=== PATIENT | male | born 1930 | race Caucasian/White ===

== ENCOUNTER → 2016-11-18 | Day surgery (SDC) | payer MEDICARE, OTHER ==
[~2016-11-18] VITALS: Ht 177.8 cm; Wt 77.1 kg
[~2016-11-18] MED LIST: /TAMS4CA OR; AMIL5TA PO; AMLO10TA OR; AMLO10TA2 PO; ASPI81TA85 PO; ATEN50TA2 OR; BABY81CH OR; CIPR500T3 PO; CONRAY-60 60% 50ML VIAL (Q9961) As Ordered ONE; CONRAY-60 60% 50ML VIAL (Q9961) XX ONE; CORT10TA OR; CORT5TAB2 OR; COZA50TA18 OR; FERR325T3 PO; HYDR-3291 PO; HYDR-4266 PO; HYDR5TAB59 PO; IRON325T PO; LABE10TAB PO; LASI80TA PO; LEVO25TA2 OR; LEVO88TA3 PO; LIDOCAINE 2% INJ 100 MG/5 ML SDV (FOR ANES.) As Ordered ONE; LR 1,000 ML IV SCH; MIDAZOLAM INJ 2 MG/2 ML VIAL (J2250) As Ordered ONE; ONDANSETRON 4MG/2ML VIAL (J2405) As Ordered ONE; PHOS667C PO; PROC1INJ5 SC; PROPOFOL 200 MG/20 ML VIAL As Ordered ONE; ROCA0.25 PO; SODI325T9 PO; TRAN100T OR; TYLE650T35 PO; VITA100037 PO; VITMTA PO; ceFAZolin 1GM INJ (J0690) As Ordered ONE; ceFAZolin SOD 1 GM in D5W MINI-BAG PLUS 50 ML IV ONE; ePHEDrine SULFATE 25 MG/5 ML(5MG/ML) SYRINGE As Ordered ONE; fentaNYL 100 MCG/2 ML INJECTION (J3010) As Ordered ONE
--- NOTE | 2016-11-18 10:57 | REP ---
RETROGRADE PYELOGRAM: Four views. HISTORY: Left ureteral stone. 0.13 minutes of fluoroscopy time is reported. FINDINGS: A sequence of four fluoroscopically obtained intraprocedural spot radiographs document cystoscopy, left ureteral cannulation and double pigtail stent placement. No laterality markers are seen. Signed by Arley Elam MD 11/18/2016 08:09 P
[2016-11-18 12:55] VITALS: BP 161/73
--- NOTE | 2016-11-19 09:37 | RO ---
DATE OF PROCEDURE: 11/18/2016 PREOPERATIVE DIAGNOSIS: Left hydronephrosis. POSTOPERATIVE DIAGNOSIS: Left hydronephrosis and papillary tumor of the bladder. SURGERY PERFORMED: Cystoscopy, plus left double J stent exchange, #6-Kosovan Boaz Cook, plus transurethral resection of bladder tumors. SURGEON: Frankie Hilario MD GREEN COFFEE BLENDER: None. ANESTHESIA: General. COMPLICATIONS: None. ESTIMATED BLOOD LOSS: N/A. HISTORY OF PRESENT ILLNESS: This is an 86-year-old male patient with a history of left hydronephrosis due to a left ureteral stricture mid ureter. The patient is here for cystoscopy, plus left double J stent exchange, #6-Kosovan Boaz Cook. PROCEDURE DESCRIPTION: In a patient under general anesthesia in supine modified low lithotomy position after prepping and draping the area of concern, which included the entire genitalia and abdomen, we started by introducing a #21-Kosovan cystoscope with a 30-degree lens, under videoendoscopic camera. The fossa navicularis, penile urethra, bulbar urethra, membranous urethra, and prostatic urethra were totally normal. The bladder had some papillary tumor in the left trigone, in the right trigone and periurethral orifice, as well as in the posterior bladder wall. The left double J stenting with position, with the endoscopic forceps, we grabbed the left double J stent and pulled it out of the body of the patient. We then proceeded to pass a guidewire up to the kidney and then loaded a new double J stent and put it into position. Once it was in good position, we removed the guidewire and you could see the curl in the kidney and the curl in the bladder. We then proceeded to actively grab a resectoscope. After dilating the urethra [place] sounds up to 30 , we passed the resectoscope and resected the papillary tumor in the left trigone, in the periurethral orifice on the left side and also in the posterior bladder wall. We sent these specimens for permanent pathology analysis. We then fulgurated the bleeding vessels and took out the cystoscope, the resectoscope and placed a #24-Kosovan Pollack catheter 3-way, the balloon to 20 mL and placed it to gravity. The third way was blocked with a plug. Plan: The patient will go home with antibiotic and Tylenol for pain. He will followup in 4 days at [facility] for a voiding trial. There were no complications during surgery.
== END | disposition home or self-care (01) ==
LOC: M SDC 08:00
PROVIDERS: ATTEND Urology
DX: N13.1 Hydronephrosis with ureteral stricture, not elsewhere classified (principal); C67.0 Malignant neoplasm of trigone of bladder; N13.8 Other obstructive and reflux uropathy; I10 Essential (primary) hypertension; E27.2 Addisonian crisis; E03.9 Hypothyroidism, unspecified; Z91.040 Latex allergy status; Z79.899 Other long term (current) drug therapy; Z79.82 Long term (current) use of aspirin; Z87.891 Personal history of nicotine dependence
CPT/HCPCS: 52234; 52332; 74420; 88305; C2617; J0690; J2250; J2405; J3010; Q9961

== ENCOUNTER → 2016-11-27 | Outpatient (CLI) | payer MEDICARE, OTHER ==
[~2016-11-27] MED LIST changes: -CONRAY-60 60% 50ML VIAL (Q9961) As Ordered ONE; -CONRAY-60 60% 50ML VIAL (Q9961) XX ONE; +FUROSEMIDE 20 MG/2 ML VIAL (J1940) As Ordered ONE; -LIDOCAINE 2% INJ 100 MG/5 ML SDV (FOR ANES.) As Ordered ONE; -LR 1,000 ML IV SCH; -MIDAZOLAM INJ 2 MG/2 ML VIAL (J2250) As Ordered ONE; -ONDANSETRON 4MG/2ML VIAL (J2405) As Ordered ONE; -PROPOFOL 200 MG/20 ML VIAL As Ordered ONE; -ceFAZolin 1GM INJ (J0690) As Ordered ONE; -ceFAZolin SOD 1 GM in D5W MINI-BAG PLUS 50 ML IV ONE; -ePHEDrine SULFATE 25 MG/5 ML(5MG/ML) SYRINGE As Ordered ONE; -fentaNYL 100 MCG/2 ML INJECTION (J3010) As Ordered ONE
--- NOTE | 2016-11-27 16:43 | REP ---
Nuclear renal scintigraphy with differential flow and function analysis and Lasix induced washout venography: History: Obstructive and reflux uropathy. Hydronephrosis. Bladder carcinoma. Comparison nuclear renal scan is from 08/17/2012. The prior study showed very poor function and flow to the left kidney. Technique: 8.8 mCi technetium 99m MAG3 is injected and a posterior flow and excretory phase images are acquired. Renal cortical regions of interest are drawn and time activity curves are plotted for renal function analysis. 20 mg of intravenous Lasix is administered and post Lasix venography was performed. Scintigraphic findings: Posterior flow study shows essentially absent early uptake in the left kidney. Excretory phase images show markedly delayed appearance of the left renal and left collecting system uptake. There is no evidence of intrarenal mass on the right. Renal collecting systems labeled on the right at the 3-minute ree. There is no evidence of obstructive uropathy on the right. Differential renal function analysis is asymmetric with 20% of renal cortical counts tabulated from the left kidney and 80% from the right. Time to max activity is delayed somewhat on the right to 5.0 minutes of the could not be calculated on the left. Time to half max activity is greater than 30 minutes bilaterally. There is a decrement in renal function affecting the right kidney when compared with the prior study. Post-Lasix venography shows some clearance of collecting system activity from the right kidney however there is no significant hydronephrosis to begin with. The post-Lasix venography for the left kidney shows a rising time activity curve consistent with obstructive uropathy. Impression: Markedly decreased, nearly absent, function left kidney with rising post-Lasix time activity curve consistent with obstructive uropathy. Diminish function right kidney also seen, more so than on the prior study. Signed by Arley Elam MD 11/27/2016 04:59 P
== END ==
LOC: M RAD 09:25
PROVIDERS: ATTEND Nurse Practitioner Women's Health
DX: C67.9 Malignant neoplasm of bladder, unspecified (principal); N13.8 Other obstructive and reflux uropathy; N13.1 Hydronephrosis with ureteral stricture, not elsewhere classified
CPT/HCPCS: 78708; A9562; J1940

== ENCOUNTER → 2016-12-10 | Outpatient (REF) | payer MEDICARE, OTHER ==
[~2016-12-10] MED LIST changes: -FUROSEMIDE 20 MG/2 ML VIAL (J1940) As Ordered ONE
[2016-12-10 19:10] LABS: PERCENT SATURATION 25.4 % (19.7-37.4)
== END | disposition home or self-care (01) ==
LOC: M LAB REF 17:04
PROVIDERS: ATTEND Internal Medicine Nephrology
DX: D50.9 Iron deficiency anemia, unspecified (principal)

== ENCOUNTER → 2017-01-05 | Outpatient (CLI) | payer MEDICARE, OTHER ==
[~2017-01-05] MED LIST changes: +ASPI1TAB PO; +CEPH250T PO; +KEFL250C6 PO; +LASI40TA PO; +LEVO100T54 PO; +MINO10TAB PO; +MINO25TA PO; +PERCOCET PO
[2017-01-05 14:36] LABS: TOTAL PROTEIN, BODY FLUID 1.7 G/DL (NOT ESTABLISHED)
--- NOTE | 2017-01-05 14:58 | REP ---
CHEST X-RAY: THREE VIEWS PRESENTED. HISTORY: Post thoracentesis. Question pneumothorax. Comparison study, November 03, 2016. Comparison CT study December 31, 2016. FINDINGS: Upright AP and lateral views of the chest show no evidence of pneumothorax. There is slight residual blunting of the right lateral pleural angle. The lungs are quite hyperinflated with increase in the AP diameter of the chest and some flattening of the hemidiaphragms. The thoracic aorta is calcific and tortuous. Thoracic kyphosis is exaggerated, and there are three adjacent osteoporotic wedge-shaped compression deformities in the thoracic spine. These are unchanged from the November 03, 2016 prior chest x-ray. IMPRESSION: No evidence of pneumothorax. Patient status post right thoracentesis. Linear fibrosis left perihilar region and cardiomegaly again noted. Stable wedge compression deformities in the thoracic spine. Signed by Arley Elam MD 01/05/2017 03:22 P
--- NOTE | 2017-01-05 17:12 | REP ---
ULTRASOUND GUIDED RIGHT THORACENTESIS: The procedure was performed under the direct supervision of Dr. Alcocer. The risks and benefits of the procedure were explained to the patient and informed consent was obtained. The right pleural effusion was localized using ultrasound guidance. The skin was prepped and draped in a sterile fashion. 1% Lidocaine was used as a local anesthetic. Using ultrasound guidance an 8-Eritrean [id number] catheter was inserted using trocar technique. 500 mL of clear yellow fluid was withdrawn and sent to the lab for analysis. The patient tolerated the procedure well and there were no immediate complications. After the appropriate amount of monitored convalesce the patient was discharged from the department. Reviewed by STEPHENIE Zelaya 01/06/2017 08:22 AEdited and Signed by Ryan Alcocer MD 01/06/2017 10:12 A
== END ==
LOC: M RADPRO 12:03
PROVIDERS: ATTEND Internal Medicine Nephrology
DX: J84.112 Idiopathic pulmonary fibrosis (principal); I51.7 Cardiomegaly; N18.4 Chronic kidney disease, stage 4 (severe); J90 Pleural effusion, not elsewhere classified; R06.00 Dyspnea, unspecified; Z91.040 Latex allergy status; Z91.048 Other nonmedicinal substance allergy status; Z79.82 Long term (current) use of aspirin; Z79.899 Other long term (current) drug therapy

== ENCOUNTER 2017-01-06 08:19 | Day surgery (SDC) | payer MEDICARE, OTHER ==
[~2017-01-06] VITALS: Ht 177.8 cm; Wt 78.5 kg
[~2017-01-06 08:19] MED LIST changes: -ASPI1TAB PO; -CEPH250T PO; -KEFL250C6 PO; -LASI40TA PO; -LEVO100T54 PO; +LIDOCAINE 2% INJ 100 MG/5 ML SDV (FOR ANES.) As Ordered ONE; +MIDAZOLAM INJ 2 MG/2 ML VIAL (J2250) As Ordered ONE; -MINO10TAB PO; -MINO25TA PO; -PERCOCET PO; +PROPOFOL 200 MG/20 ML VIAL As Ordered ONE; +fentaNYL 100 MCG/2 ML INJECTION (J3010) As Ordered ONE
[2017-01-06] MEDS ORDERED: LR 1,000 ML IV SCH ×2 (09:00→12:15)
[2017-01-06 09:04] LABS: INR 1.07
[2017-01-06] MEDS ORDERED: MINO25TA PO (09:25)
[2017-01-06] MEDS ORDERED: ceFAZolin 2 GM/D5W 50 ML IV BAG (J0690) As Ordered ONE ×2 (09:31→09:37)
[2017-01-06] MEDS ORDERED: ROCURONIUM BROMIDE 50 MG/5 ML VIAL As Ordered ONE (09:35)
[2017-01-06] MEDS ORDERED: LASI40TA PO (09:37)
[2017-01-06] MEDS ORDERED: HYDROCORTISONE 100 MG/2 ML VIAL (J1720) As Ordered ONE (10:00)
[2017-01-06] MEDS ORDERED: CONRAY-60 60% 50ML VIAL (Q9961) As Ordered ONE (10:10)
[2017-01-06] MEDS ORDERED: ONDANSETRON 4MG/2ML VIAL (J2405) As Ordered ONE (10:19)
[2017-01-06] MEDS ORDERED: NEOSTIGMINE 1MG/ML 5 ML SYRINGE (J2710) As Ordered ONE (10:19)
[2017-01-06] MEDS ORDERED: GLYCOPYRROLATE INJ 0.2 MG/ML 2 ML VIAL As Ordered ONE (10:20)
[2017-01-06] MEDS ORDERED: ePHEDrine SULFATE 25 MG/5 ML(5MG/ML) SYRINGE As Ordered ONE (10:29)
[2017-01-06] MEDS ORDERED: KEFL250C6 PO (11:50)
[2017-01-06] MEDS ORDERED: PERCOCET PO (11:50)
[2017-01-06] MEDS ORDERED: FUROSEMIDE 20 MG/2 ML VIAL (J1940) As Ordered ONE (12:02)
--- NOTE | 2017-01-06 12:13 | REP ---
C-ARM VIEWS DURING LEFT RETROGRADE PYELOGRAM: Multiple C-arm views are obtained. Contrast is injected into the left ureter and pelvicaliceal system, with moderate dilatation of the collecting system. A balloon is inflated in the proximal left ureter. Left ureteral stent is place with the proximal end coiled in the left renal pelvis and the distal end coiled in the urinary bladder. 8 minutes 18 seconds of fluoroscopy time utilized. Signed by Ryan Alcocer MD 01/07/2017 04:36 P
[2017-01-06] MEDS ORDERED: fentaNYL 100 MCG/2 ML INJECTION (J3010) IV PRN (12:15)
[2017-01-06] MEDS ORDERED: FUROSEMIDE 20 MG/2 ML VIAL (J1940) IV ONE (12:15)
[2017-01-06] MEDS ORDERED: ONDANSETRON 4MG/2ML VIAL (J2405) IV PRN ×2 (12:15→16:30)
[2017-01-06] MEDS ORDERED: PERCOCET 5MG/325MG TAB PO PRN ×2 (12:15)
[2017-01-06 13:50] VITALS: BP 138/58
[2017-01-06 14:30] VITALS: BP 120/62
[2017-01-06 15:00] VITALS: BP 153/69
[2017-01-06 16:00] VITALS: BP 147/65
[2017-01-06 16:43] LABS: MEAN CORPUSCULAR VOLUME 99.9 fl (80.0-96.0); RED CELL DISTRIBUTION WIDTH 16.3 % (11.5-14.5); WHITE BLOOD COUNT 5.4 K/mm3 (4.0-10.0)
[2017-01-06 17:00] VITALS: BP 144/67
[2017-01-06] MEDS: ACETAMINOPHEN 650MG ER TAB (TYLENOL ARTHRITIS) PO SCH ×2 (17:44→21:13)
[2017-01-06 18:00] VITALS: BP 138/65
[2017-01-06] MEDS ORDERED: CEPHALEXIN 250 MG CAP PO ONE (18:00)
[2017-01-06 18:03] LABS: CALCIUM LEVEL 7.7 MG/DL (8.8-10.2); CREATININE FOR GFR 4.44 MG/DL (0.70-1.30); GLOMERULAR FILTRATION RATE 13.6 (>35)
[2017-01-06 18:05] LABS: POTASSIUM SERUM 5.7 MEQ/L (3.5-5.1)
[2017-01-06] MEDS: LABETALOL 100 MG TAB PO SCH (20:20)
[2017-01-06] MEDS: aMILoride 5 MG TAB PO SCH (20:24)
[2017-01-07 02:00] VITALS: BP 121/60
[2017-01-07] MEDS: ACETAMINOPHEN 650MG ER TAB (TYLENOL ARTHRITIS) PO SCH (05:50)
[2017-01-07 06:00] VITALS: BP 124/58
[2017-01-07] MEDS ORDERED: LEVOTHYROXINE 0.1 MG TAB (100 MCG) PO SCH (06:00)
[2017-01-07 07:16] LABS: MEAN CORPUSCULAR HEMOGLOBIN 30.9 pg (27.0-33.0); MEAN CORPUSCULAR HGB CONC 31.7 g/dl (32.0-36.5); MEAN CORPUSCULAR VOLUME 97.5 fl (80.0-96.0); RED CELL DISTRIBUTION WIDTH 16.2 % (11.5-14.5); WHITE BLOOD COUNT 6.4 K/mm3 (4.0-10.0)
[2017-01-07 07:28] LABS: CALCIUM LEVEL 7.2 MG/DL (8.8-10.2); CREATININE FOR GFR 4.52 MG/DL (0.70-1.30); GLOMERULAR FILTRATION RATE 13.3 (>35)
[2017-01-07 07:29] LABS: POTASSIUM SERUM 5.4 MEQ/L (3.5-5.1)
[2017-01-07] MEDS ORDERED: CEPHALEXIN 250 MG CAP PO SCH ×2 (09:00)
[2017-01-07 09:31] VITALS: BP 124/58
[2017-01-07] MEDS: aMILoride 5 MG TAB PO SCH (09:31)
[2017-01-07] MEDS: LABETALOL 100 MG TAB PO SCH (09:31)
[2017-01-07 10:00] VITALS: BP 126/59
--- NOTE | 2017-01-07 11:43 | RO ---
DATE OF PROCEDURE: 01/06/2017 PREOPERATIVE DIAGNOSIS: Left ureteral stricture and bladder tumors. POSTOPERATIVE DIAGNOSIS: Bladder tumors and left ureteral stricture. PROCEDURE: Cystoscopy, plus left ureteroscopy plus left ureteral balloon dilatation plus left JJ stent exchange plus transurethral resection of bladder tumor (TURBT), plus exam under anesthesia plus urethral dilatation with [place] sounds. SURGEON: Dr. Frankie Hilario WIRE WINDING MACHINE TENDER: None. ANESTHESIA: General. COMPLICATIONS: None. ESTIMATED BLOOD LOSS: N/A. HISTORY OF PRESENT ILLNESS: This is an 86-year-old male patient that is actively here due to history of urethral bladder neoplasm. He also has a left distal urethral stricture and he has a left JJ stent in good position. For this reason, he has consented for cystoscopy plus exam under anesthesia plus transurethral resection of bladder tumor (TURBT) plus left ureteroscopy plus possible ureteral biopsies plus JJ stent exchange. PROCEDURE DESCRIPTION: In a patient under general anesthesia in supine modified low lithotomy position, after prepping and draping the area of concern which included the entire genitalia and abdomen, we started by introducing a cystoscope 23 Sri [place]ankan in diameter through the urethra. Before that, we actually placed a [place] sound to dilated the urethral meatus up to size of 26 [place]an in diameter. We then introduced a 23 [place]ankan in diameter cystoscope with a 30 degree lens under videoscopic guidance. The fossa navicularis, penile urethra, bulbar urethra, membranous urethra and prostatic urethra were totally normal. The bladder has small type 1 mm tumors in the posterior bladder wall and scar tissue from prior resection of the bladder in the trigone. At that moment in time, we also visualized a left JJ stent in good position. With endoscopic forceps, we extracted the left JJ stent placed and passed a solo guidewire up to the kidney. We then passed a double lumen catheter up to the mid ureter and did a retrograde pyelogram. We could see a 2 cm in length urethral stricture and left hydronephrosis. At that moment in time, we actually noted a second guidewire up to the kidney. We took the double lumen catheter out and introduced a flexible ureteroscope following one of the guidewires. We could not pass the stricture. For this reason, we actually took out the urethroscope and passed a balloon ureteral dilator 4 cm in diameter and dilated the urethral stricture. We then proceeded to pass the ureteroscope up to the kidney. The kidney has no tumors. The stricture was very narrow. The ureteroscope barely passed the stricture. It was a 2 cm in length external stricture. There was no papillary tumors in the ureter. We then proceeded to retract the ureteroscope and then with a safety guidewire in position, we actually placed a left JJ stent up to the kidney. The left JJ stent was in good position with the stent guidewire and could see the curl in the kidney and the curl in the bladder. We then proceeded to take our cystoscope out and introduced a resectoscope. Under normal saline bipolar resection, we dissected the scar tissue in the trigone and sent it for pathology analysis. Then we resected the small tumors in the posterior bladder wall and sent it for permanent pathology analysis. We fulgurated the resection base, emptied the bladder and with Ellik evacuator, emptied the bladder and took the cystoscope out, introduced a #22-Sri Lankan Marie catheter, inflated the balloon to 20 mL, placed to gravity and irrigation. PLAN: The patient will actually stay for 23 hours. Marie catheter to gravity. He will take Keflex one tablet by mouth twice daily for 10 days and followup at [facility] in about 5 days for removal of Marie catheter. There were no complications during surgery.
[2017-01-08] MEDS ORDERED: CEPH250T PO (16:17)
[2017-01-08] MEDS ORDERED: MINO10TAB PO (16:20)
[2017-01-08] MEDS ORDERED: ASPI1TAB PO (16:20)
[2017-01-08] MEDS ORDERED: LEVO100T54 PO (16:20)
== END 2017-01-07 15:47 | disposition home or self-care (01) ==
LOC: M SDC 08:19 → M MSPAV 14:17 → M SDC 01-07 15:47
PROVIDERS: ATTEND Urology
DX: D41.4 Neoplasm of uncertain behavior of bladder (principal); N13.1 Hydronephrosis with ureteral stricture, not elsewhere classified; E03.9 Hypothyroidism, unspecified; E27.2 Addisonian crisis; I12.9 Hypertensive chronic kidney disease with stage 1 through stage 4 chronic kidney disease, or unspecified chronic kidney disease; N18.4 Chronic kidney disease, stage 4 (severe); I71.4 Abdominal aortic aneurysm, without rupture; I50.9 Heart failure, unspecified; E11.22 Type 2 diabetes mellitus with diabetic chronic kidney disease; K21.9 Gastro-esophageal reflux disease without esophagitis; D64.9 Anemia, unspecified; R06.02 Shortness of breath; M12.9 Arthropathy, unspecified; M51.36 Other intervertebral disc degeneration, lumbar region; C50.129 Malignant neoplasm of central portion of unspecified male breast; Z91.040 Latex allergy status; Z91.048 Other nonmedicinal substance allergy status; Z79.899 Other long term (current) drug therapy; Z79.82 Long term (current) use of aspirin; Z87.891 Personal history of nicotine dependence; Z96.1 Presence of intraocular lens

== ENCOUNTER 2017-01-08 15:12 | Inpatient (IN) | payer MEDICARE, OTHER ==
[~2017-01-08] VITALS: Ht 177.8 cm; Wt 77.3 kg
[~2017-01-08 15:12] MED LIST changes: +KEFL250C6 PO; +LASI40TA PO; -LIDOCAINE 2% INJ 100 MG/5 ML SDV (FOR ANES.) As Ordered ONE; -MIDAZOLAM INJ 2 MG/2 ML VIAL (J2250) As Ordered ONE; +MINO25TA PO; +PERCOCET PO; -PROPOFOL 200 MG/20 ML VIAL As Ordered ONE; +ceFAZolin 2 GM/D5W 50 ML IV BAG (J0690) ONE; -fentaNYL 100 MCG/2 ML INJECTION (J3010) As Ordered ONE
[2017-01-08] MEDS ORDERED: CEPH250T PO (16:17)
[2017-01-08] MEDS ORDERED: ASPI1TAB PO (16:20)
[2017-01-08] MEDS ORDERED: LEVO100T54 PO (16:20)
[2017-01-08] MEDS ORDERED: MINO10TAB PO (16:20)
[2017-01-08 16:38] LABS: BASO % 0.4 % (0.0-1.0); EOS # 0.2 K/mm3 (0.0-0.50); EOS % 2.5 % (0.0-3.0); LARGE UNSTAINED CELL # 0.2 K/mm3 (0.0-0.4); LARGE UNSTAINED CELL % 2.3 % (0.0-4.0); LYMPH # 0.4 K/mm3 (1.5-4.5); LYMPH % 5.6 % (24.0-44.0); MEAN CORPUSCULAR HEMOGLOBIN 30.4 pg (27.0-33.0); MEAN CORPUSCULAR HGB CONC 31.1 g/dl (32.0-36.5); MEAN CORPUSCULAR VOLUME 97.7 fl (80.0-96.0); MONO # 0.5 K/mm3 (0.0-0.8); MONO % 6.5 % (0.0-5.0); NEUTROPHILS # 5.8 K/mm3 (1.8-7.7); NEUTROPHILS % 82.7 % (36.0-66.0); PLATELET COUNT, AUTOMATED 190 k/mm3 (150-450); RED CELL DISTRIBUTION WIDTH 16.3 % (11.5-14.5)
[2017-01-08 17:08] LABS: ALBUMIN 3.3 GM/DL (3.2-5.2); ALBUMIN/GLOBULIN RATIO 1.14 (1.00-1.93); ALKALINE PHOSPHATASE 265 U/L (45-117); ALT/SGPT 19 U/L (12-78); ANION GAP 13 MEQ/L (8-16); AST/SGOT 32 U/L (15-37); BILIRUBIN,DIRECT 0.2 MG/DL (0.0-0.2); BILIRUBIN,TOTAL 0.4 MG/DL (0.2-1.0); BLOOD UREA NITROGEN 89 MG/DL (7-18); CALCIUM LEVEL 7.7 MG/DL (8.8-10.2); CARBON DIOXIDE LEVEL 16 MEQ/L (21-32); CHLORIDE LEVEL 111 MEQ/L (98-107); CREATININE FOR GFR 4.54 MG/DL (0.70-1.30); GLOMERULAR FILTRATION RATE 13.2 (>35); GLUCOSE, FASTING 132 MG/DL (83-110); SODIUM LEVEL 140 MEQ/L (136-145); T UPTAKE 32 % (33-40); TOTAL PROTEIN 6.2 GM/DL (6.4-8.2)
[2017-01-08] MEDS ORDERED: FUROSEMIDE 40 MG/4 ML VIAL (J1940) IV ONE (17:15)
[2017-01-08 17:17] LABS: POTASSIUM SERUM 5.2 MEQ/L (3.5-5.1)
[2017-01-08 17:45] LABS: INR 1.14
[2017-01-08] MEDS ORDERED: cefTRIAXone SOD 1 GM in D5W MINI-BAG PLUS 50 ML IV ONE (18:00)
[2017-01-08 18:16] LABS: MAGNESIUM LEVEL 1.9 MG/DL (1.8-2.4)
[2017-01-08 18:24] LABS: MICROSCOPIC INDICATED? MAN YES (NO)
--- NOTE | 2017-01-08 18:27 | REP ---
CT study of the abdomen pelvis without IV or oral contrast: History: Recent stent change. Question position check question hydronephrosis. Comparison study 11/15/2015. CT findings: Preliminary digital plane tender radiograph demonstrates a normal bowel gas pattern. There is a double pigtail ureteral stent in place on the left. There are periaortic clips. The lung bases show small amounts of bilateral pleural fluid, right more so than left. There is a small patchy area of consolidation in the left lower lobe posteriorly. This could be a inflammatory infiltrate. The heart is somewhat prominent. This is unchanged. No adrenal lesion is seen. There are two or three granulomatous calcifications scattered about the liver and multiple old granulomatous calcifications are seen in the spleen. No pancreatic mass or cyst is seen. The gallbladder surgically absent. There is moderate hydronephrosis and hydroureter on the right. The ureter is dilated to the level of a vascular crossing with an aneurysmally dilated distal common iliac artery on the right side. There are several intrarenal calcifications consistent with intrarenal nephrolithiasis. The largest of these measures 7 mm in greatest diameter. On the left the double pigtail ureteral stent catheter is seen in good position with its distal pigtail in the bladder and the proximal pigtail in the renal pelvis. This left kidney is severely atrophic. There is no left-sided hydronephrosis. There is prominent vascular calcification. There are is an aortobifemoral graft in place. Bilateral pokagon common iliac artery aneurysms are seen. Marie catheter is noted. There is advanced diffuse osteopenia. There is a bilateral L5 spondylolysis and a grade 1 L5-S1 spondylolisthesis seen. Small and large intestinal bowel loops are normal in appearance. There is some left colonic diverticulosis. No abdominal wall defect is seen. A normal appendix is seen. Impression: 1. Left ureteral pigtail stent in good position. No left-sided hydronephrosis. A Marie catheter in place. 2. Moderate right-sided hydronephrosis and hydroureter down to the level of the ureteral vascular crossing with the aneurysmal common iliac artery on the right. 3. Status post aorta bifemoral grafting. Bilateral common iliac artery aneurysms. 4. Bilateral L5 spondylolysis and grade 1 L5-S1 spondylolisthesis. 5. Left colonic diverticulosis. 6. Small bilateral pleural effusions. Small infiltrate left lower lobe suspected. Signed by Arley Elam MD 01/09/2017 12:25 P
[2017-01-08 18:29] LABS: BACTERIA, URINE NONE SEEN; HYALINE CAST, URINE NONE SEEN /lpf (0-1); MICROSCOPIC EXAM PERFORMED; RBC, URINE TNTC /hpf (0-3); SQUAMOUS EPITHELIAL CELL URINE SMALL AMOUNT /hpf (SMALL AMT)
--- NOTE | 2017-01-08 18:31 | REP ---
PORTABLE CHEST: AP portable view of the chest is performed and compared to prior studies, most recent of which is 01/05/2017. There is mild cardiomegaly. There appears to be mild vascular congestion. There is underlying interstitial fibrosis but there appears to be mild patchy atelectasis or infiltrate in the lung bases with small effusions. There is some calcification and tortuosity of the thoracic aorta. IMPRESSION: Mild cardiomegaly. Mild vascular congestion with mild patchy atelectasis/infiltrate in the lung bases and small effusions. Findings may represent mild CHF. Signed by Ryan Alcocer MD 01/18/2017 08:59 A
--- NOTE | 2017-01-08 20:05 | HPEPDOC ---
General Date of Admission 01/08/17 08:30PM Chief Complaint The patient is a 86-year-old male admitted with a reason for visit of Shortness Of Breath/Kidney Issue. Source: Patient Exam Limitations: No limitations Timing/Duration: 4-6 hours Severity: Moderate Associated Symptoms: Cough, Shortness of breath History of Present Illness This is an 86-year old male with a past medical history of urothelial carcinoma/ bladder cancer, CHF/pEF, HTN, CKD IV, Sawyer's, Jerald's, AAA s/p repair ( 1999), anemia, uretral strictures, recent left uretral stent exchange 2 days ago. He was sent here today by his cerner analyst for worsening shortness of breath, and fluid overload. He admits to cough productive of clear sputum. Patient denies chest pain, abdominal pain, N/V/D. He states he does feel his legs have been swollen for the last day. Home Medications Scheduled Amiloride HCl (Amiloride HCl) 5 Mg Tab 10 MG PO BID (Reported) Aspirin (Aspirin 81) 81 Mg Tab 81 MG PO DAILY (Reported) Calcitriol (Rocaltrol) 0.25 Mcg Cap 0.75 MCG PO QPM (Reported) Calcium Acetate (Phoslo) 667 Mg Cap 1,334 MG PO TID (Reported) Cephalexin Monohydrate (Cephalexin) 250 Mg Tab 250 MG PO BID (Reported) FILLED 01/06/17 FOR 10 DAYS Epoetin [place] (Procrit) 10,000 Unit/Ml Inj 10,000 UNIT SC MTHLY (Reported) Ferrous Sulfate (Ferrous Sulfate) 325 Mg Tab 325 MG PO BID (Reported) Furosemide (Lasix) 40 Mg Tab 80 MG PO BID (Reported) Hydrocortisone Base (Hydrocortisone) 10 Mg Tab 10 MG PO QAM (Reported) Hydrocortisone Base (Hydrocortisone) 5 Mg Tab 5 MG PO QHS (Reported) Labetalol HCl (Labetalol HCl) 100 Mg Tab 100 MG PO BID (Reported) Levothyroxine Sodium (Levoxyl) 100 Mcg Tab 100 MCG PO DAILY (Reported) Minoxidil (Minoxidil) 10 Mg Tab 10 MG PO DAILY (Reported) WAS DISCONTINUED AT MD OFFICE 01/08/17 Multivitamins *[facility] STOCKED* (Thera M Plus *[facility] STOCKED*) 1 Tab Tab 1 TAB PO DAILY (Reported) Sodium Bicarbonate (Sodium Bicarbonate) 325 Mg Tab 650 MG PO TID (Reported) Vitamin D (Vitamin D) 1,000 Unit Cap 1,000 UNIT PO BID (Reported) Allergies Coded Allergies: Latex (Verified Allergy, Intermediate, SWELLING, 12/24/16) TAPE (Verified Allergy, Unknown, ADHESIVES, 12/24/16) Past Medical History Medical History Please refer to HPI and problem list. Social History * Smoker: former Smoker, other (remote history) Review of Symptoms Constitutional: Reports: Weakness, Denies: Chills, Fever Eyes: Denies: Pain, Vision change ENT: Denies: Head Aches Pulmonary: Reports: Cough, Dyspnea, Denies: Pleuritic Chest Pain Cardiovascular: Denies: Chest Pain, Palpitations Gastrointestinal: Denies: Abdominal Pain, Nausea, Vomiting Genitourinary: Denies: Dysuria, Frequency Musculoskeletal: Denies: Neck Pain Neurological: Denies: Weakness Psych: Reports: Mood Normal Physical Examination General Exam: Positive: Alert, Cooperative, No Acute Distress Eye Exam: Positive: Conjunctiva & lids normal, EOMI, PERRLA, Negative: Sclera icteric ENT Exam: Positive: Atraumatic, Mucous membr. moist/pink Neck Exam: Positive: Supple Chest Exam: Positive: Normal air movement, Other (b/l crackles), Wheezing Heart Exam: Positive: Rate Normal, Regular Rhythm Telemetry: Positive: PVCs Abdomen Exam: Positive: Normal bowel sounds, Soft, Negative: Tenderness Extremity Exam: Positive: Edema Neuro Exam: Positive: Normal Speech Psych Exam: Positive: Oriented x 3 Vital Signs Refer to documentation. Laboratory Data Labs 24H Laboratory Tests 2 01/08/17 16:17: Aspartate Amino Transf (AST/SGOT) 32, Alanine Aminotransferase (ALT/SGPT) 19, Alkaline Phosphatase 265H, Total Bilirubin 0.4, Direct Bilirubin 0.2, Albumin 3.3, Albumin/Globulin Ratio 1.14, Anion Gap 13, B-Type Natriuretic Peptide 2410H , White Blood Count 7.0, Red Blood Count 2.93L, Hemoglobin 8.9L, Hematocrit 28.6L, Mean Corpuscular Volume 97.7H, Mean Corpuscular Hemoglobin 30.4, Mean Corpuscular Hemoglobin Concent 31.1L, Red Cell Distribution Width 16.3H, Platelet Count 190, Neutrophils (%) (Auto) 82.7H, Lymphocytes (%) (Auto) 5.6L, Monocytes (%) (Auto) 6.5H, Eosinophils (%) (Auto) 2.5, Basophils (%) (Auto) 0.4 , Neutrophils # (Auto) 5.8, Lymphocytes # (Auto) 0.4L, Monocytes # (Auto) 0.5, Eosinophils # (Auto) 0.2, Basophils # (Auto) 0.0, Calcium Level 7.7L, Creatine Kinase MB 9.6H, Creatine Kinase MB Relative Index 6.76H, Free Thyroxine Index 2.2, Glomerular Filtration Rate 13.2L, Large Unclassified Cells # 0.2, Large Unclassified Cells % 2.3, Magnesium Level 1.9, Phosphorus Level 7.0H, Prothromb Time International Ratio 1.14, Prothrombin Time 14.7H, Thyroid Stimulating Hormone (TSH) < 0.005L, Thyroxine (T4) 7.0, Total Creatine Kinase 142, Total Protein 6.2L, Triiodothyronine (T3) Uptake 32L, Troponin I 0.05 01/08/17 18:04: Bedside Urine Appearance (LAB) CLOUDYH, Bedside Urine Bilirubin (LAB) NEGATIVE, Bedside Urine Blood POSITIVEH, Bedside Urine Color (LAB) REDH, Bedside Urine Glucose (UA) NEGATIVE, Bedside Urine Ketones (LAB) NEGATIVE, Bedside Urine Leukocyte Esterase (L POSITIVEH, Bedside Urine Nitrite (LAB) NEGATIVE, Bedside Urine Protein (LAB) 2+H, Bedside Urine Specific [place] (LAB 1.015, Bedside Urine Urobilinogen (LAB) NORMAL, Bedside Urine pH (LAB) 5.5, Urine WBC 10-15H, Urine RBC TNTCH, Urine Squamous Epithelial Cells SMALL AMOUNT, Urine Bacteria NONE SEEN, Urine Hyaline Casts NONE SEEN, Urine Sediment Examination PERFORMED CBC/BMP Laboratory Tests 01/08/17 16:17 Red Blood Count 2.93 L, Mean Corpuscular Volume 97.7 H, Mean Corpuscular Hemoglobin 30.4, Mean Corpuscular Hemoglobin Concent 31.1 L, Red Cell Distribution Width 16.3 H, Neutrophils (%) (Auto) 82.7 H, Lymphocytes (%) (Auto ) 5.6 L, Monocytes (%) (Auto) 6.5 H, Eosinophils (%) (Auto) 2.5, Basophils (%) ( Auto) 0.4, Neutrophils # (Auto) 5.8, Lymphocytes # (Auto) 0.4 L, Monocytes # ( Auto) 0.5, Eosinophils # (Auto) 0.2, Basophils # (Auto) 0.0 Microbiology Microbiology 01/08/17 Urine Culture, Received Pending Problems (1) Shortness of breath Status: Acute Discussed With: Patient Problem Specific Plan: Monitor Clinically, Repeat Labs, Repeat Tests Problem Text: Multifactorial - appears to be volume overload, decompensated heart failure, possibly complicated with pneumonia (2) CHF (congestive heart failure) Status: Acute Response to Treatment: Uncompensated Discussed With: Patient Problem Specific Plan: Consult Specialist, Monitor Clinically, Repeat Labs Problem Text: Does appear to be fluid overloaded at this time. mucolytics, incentive spirometry, acapella. IV lasix. I/O'S, daily weights. serial cardiac markers. telemetry. Nephrology consultation. (3) Ureteral stricture, left Status: Acute Discussed With: Patient Problem Specific Plan: Consult Specialist, Monitor Clinically, Repeat Labs Problem Text: Recent left stent exchange 01/06/[address] Hilario. Urology consultation pending. (4) Hydronephrosis Status: Acute Discussed With: Patient Problem Specific Plan: Consult Specialist, Monitor Clinically, Repeat Labs Problem Text: New right hydronephrosis as per CT abdomen/pelvis. Urology consultation pending, likely obstructive uropathy. B/L iliac artery aneurysms noted, also present on previous CT 11/16. Nephrology consultation pending. (5) Pneumonia Status: Acute Response to Treatment: Progressing Discussed With: Patient Problem Specific Plan: Monitor Clinically, Repeat Labs, Repeat Tests Problem Text: LLL infiltrate as per CT abdomen/pelvis Will start antimicrobial therapy - ceftriaxone/azithromycin. MRSA screen. Sputum culture/gram stain. (6) Bladder cancer Status: Acute Discussed With: Patient Problem Specific Plan: Consult Specialist, Monitor Clinically, Repeat Labs (7) Urothelial carcinoma Status: Acute Discussed With: Patient Problem Specific Plan: Consult Specialist, Monitor Clinically Problem Text: As per pathology - high grade urothelial carcinoma, invasion of toñito/lamina, no muscle invasion (8) AAA (abdominal aortic aneurysm) Status: Chronic Discussed With: Patient Problem Specific Plan: Monitor Clinically Problem Text: s/p aorto-bifemoral graft in 1999 as per documentation (9) Jerald's disease Status: Acute (10) CKD (chronic kidney disease), stage IV Status: Chronic Discussed With: Patient Problem Specific Plan: Consult Specialist, Monitor Clinically, Repeat Labs (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 Patient has history of uretral strictures secondary to bladder cancer with multiple stent placements. Recently (2 days ago) left stent exchanged. Currently has right hydronephrosis which is apparently new, his usual obstruction is left sided. Urology and nephrology consultations are pending. Was discussed with urology from ER, NPO not needed at this time,not likely to go to OR pending improvement in his respiratory status. Diet: Continue Current Activity: Continue Current Therapy: PT, OT Medications: Start Antibiotics Respiratory: Wean Oxygen Diagnostics: Repeat Labs in AM, Obtain Cultures, TTE JUSTINO ROMEO MD Jan 08, 2017 19:47
[2017-01-08] MEDS ORDERED: guaiFENesin 200 MG TAB PO PRN (21:15)
[2017-01-08 21:50] VITALS: BP 170/72
[2017-01-08] MEDS: FUROSEMIDE 40 MG/4 ML VIAL (J1940) IV SCH ×2 (22:01→23:23)
[2017-01-08 22:02] LABS: ABG BASE EXCESS -12.7 (-2.0-2.0); ABG HCO3 12.8 MEQ/L (22.0-26.0); ABG PARTIAL PRESSURE CO2 28.4 mmHg (35.0-45.0); ABG PARTIAL PRESSURE O2 100.6 mmHg (75.0-100.0); ABG STANDARD HCO3 14.3 MEQ/L (22.0-26.0); ABG TOTAL CO2 13.7 MEQ/L (23.0-31.0); ABG pH (ARTERIAL) 7.273 UNITS (7.350-7.450)
[2017-01-08] MEDS: AZITHROMYCIN INJ 500 MG, VIAL MATE ADAPTER 1 EACH in D5W 250 ML IV SCH (22:25)
[2017-01-08] MEDS: CALCIUM ACETATE 667 MG GELCAP PO SCH (22:26)
[2017-01-08] MEDS: CALCITRIOL 0.25 MCG CAP (S0169) PO SCH (22:27)
[2017-01-08] MEDS: HYDROCORTISONE 5MG TABLET PO SCH (22:27)
[2017-01-08] MEDS: FERROUS SULFATE 325MG TAB PO SCH (22:27)
[2017-01-08] MEDS: LABETALOL 100 MG TAB PO SCH (22:31)
[2017-01-08] MEDS: SODIUM BICARBONATE 325 MG TAB PO SCH (22:32)
[2017-01-08] MEDS: VITAMIN D 1,000 INTERNATIONAL UNITS TABLET PO SCH (23:22)
[2017-01-09] VITALS (7 sets, daily range): BP systolic 119–168; BP diastolic 56–80; PULSE 62
[2017-01-09] MEDS ORDERED: diphenhydrAMINE 25 MG CAP PO ONE ×2 (00:45→22:15)
[2017-01-09] MEDS: FUROSEMIDE 40 MG/4 ML VIAL (J1940) IV SCH ×6 (04:13→21:25)
[2017-01-09] MEDS: LEVOTHYROXINE 0.1 MG TAB (100 MCG) PO SCH (06:32)
[2017-01-09 06:59] LABS: BASO % 0.4 % (0.0-1.0); EOS # 0.2 K/mm3 (0.0-0.50); EOS % 4.2 % (0.0-3.0); LARGE UNSTAINED CELL # 0.2 K/mm3 (0.0-0.4); LARGE UNSTAINED CELL % 2.9 % (0.0-4.0); LYMPH # 0.5 K/mm3 (1.5-4.5); LYMPH % 8.3 % (24.0-44.0); MEAN CORPUSCULAR HEMOGLOBIN 30.1 pg (27.0-33.0); MEAN CORPUSCULAR HGB CONC 31.2 g/dl (32.0-36.5); MEAN CORPUSCULAR VOLUME 96.3 fl (80.0-96.0); MONO # 0.5 K/mm3 (0.0-0.8); MONO % 7.6 % (0.0-5.0); NEUTROPHILS # 4.6 K/mm3 (1.8-7.7); NEUTROPHILS % 76.4 % (36.0-66.0); PLATELET COUNT, AUTOMATED 194 k/mm3 (150-450); RED CELL DISTRIBUTION WIDTH 16.2 % (11.5-14.5)
[2017-01-09 07:14] LABS: CALCIUM LEVEL 7.9 MG/DL (8.8-10.2); CREATININE FOR GFR 4.45 MG/DL (0.70-1.30); GLOMERULAR FILTRATION RATE 13.5 (>35); POTASSIUM SERUM 4.7 MEQ/L (3.5-5.1)
[2017-01-09] MEDS: VITAMIN D 1,000 INTERNATIONAL UNITS TABLET PO SCH ×2 (08:36→21:21)
[2017-01-09] MEDS: SODIUM BICARBONATE 325 MG TAB PO SCH ×3 (08:37→21:23)
[2017-01-09] MEDS: HYDROCORTISONE 10 MG TAB PO SCH (08:37)
[2017-01-09] MEDS: FERROUS SULFATE 325MG TAB PO SCH ×2 (08:37→21:21)
[2017-01-09] MEDS: ASPIRIN 81 MG ENTERIC TAB PO SCH (08:37)
[2017-01-09] MEDS: LABETALOL 100 MG TAB PO SCH ×2 (08:37→21:23)
[2017-01-09] MEDS: MULTIVITAMINS/MINERALS THERAP 1 TAB PO SCH (08:37)
[2017-01-09] MEDS ORDERED: MINOXIDIL 10 MG TAB PO SCH (09:00)
--- NOTE | 2017-01-09 09:05 | ECGEPIP ---
Stationary ECG Study 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
[2017-01-09] MEDS: CALCIUM ACETATE 667 MG GELCAP PO SCH ×2 (12:25→18:11)
[2017-01-09] MEDS: cefTRIAXone SOD 1 GM in D5W MINI-BAG PLUS 50 ML IV SCH (18:11)
--- NOTE | 2017-01-09 20:00 | IPNPDOC ---
Subjective Date Seen The patient was seen on 01/09/17. Subjective Chief Complaint/HPI The patient is a 86-year-old male admitted with a reason for visit of Chf; Sob. Events since last encounter Shortness of breath better this am , swelling of legs also getting better, continues to have persistent hematuria. no fever or chills, no chest pain . no abdominal pain nausea or vomiting . Objective Physical Examination General Exam: Positive: Alert, Cooperative, No Acute Distress Eye Exam: Positive: Conjunctiva & lids normal, EOMI, PERRLA, Negative: Sclera icteric ENT Exam: Positive: Atraumatic, Mucous membr. moist/pink Neck Exam: Positive: Supple Chest Exam: Positive: Normal air movement, Other (b/l crackles), Wheezing Heart Exam: Positive: Rate Normal, Regular Rhythm Telemetry: Positive: PVCs Abdomen Exam: Positive: Normal bowel sounds, Soft, Negative: Tenderness Extremity Exam: Positive: Edema Neuro Exam: Positive: Normal Speech Psych Exam: Positive: Oriented x 3 Assessment /Plan Problems (1) Shortness of breath Status: Acute Discussed With: Patient Problem Specific Plan: Monitor Clinically, Repeat Labs, Repeat Tests Problem Text: Multifactorial - appears to be volume overload, decompensated heart failure, possibly complicated with pneumonia (2) CHF (congestive heart failure) Status: Acute Response to Treatment: Uncompensated Discussed With: Patient Problem Specific Plan: Consult Specialist, Monitor Clinically, Repeat Labs Problem Text: Does appear to be fluid overloaded at this time. mucolytics, incentive spirometry, acapella. IV lasix. I/O'S, daily weights. serial cardiac markers. telemetry. Nephrology consultation. (3) Ureteral stricture, left Status: Acute Discussed With: Patient Problem Specific Plan: Consult Specialist, Monitor Clinically, Repeat Labs Problem Text: Recent left stent exchange 01/06/[address] Hilario. persistent hematuria Urology consultation (4) Hydronephrosis Status: Acute Discussed With: Patient Problem Specific Plan: Consult Specialist, Monitor Clinically, Repeat Labs Problem Text: New right hydronephrosis as per CT abdomen/pelvis. Urology consultation pending, likely obstructive uropathy. B/L iliac artery aneurysms noted, also present on previous CT 11/16. Nephrology consultation pending. (5) Pneumonia Status: Acute Response to Treatment: Progressing Discussed With: Patient Problem Specific Plan: Monitor Clinically, Repeat Labs, Repeat Tests Problem Text: LLL infiltrate as per CT abdomen/pelvis Will start antimicrobial therapy - ceftriaxone/azithromycin. MRSA screen. Sputum culture/gram stain. 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), stage IV Status: Chronic Discussed With: Patient Problem Specific Plan: Consult Specialist, Monitor Clinically, Repeat Labs Problem Text: continue sodi bicarb , calcitriol (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 Discussed With: Patient Problem Specific Plan: Monitor Clinically Problem Text: continue hydrocortisone (12) Anemia Status: Chronic Discussed With: Patient Problem Specific Plan: Monitor Clinically, Repeat Labs (13) Hypertension Status: Chronic Discussed With: Patient Problem Specific Plan: Monitor Clinically Problem Text: continue minoxidil and labetelol Plan/VTE VTE Prophylaxis Ordered?: Yes Plan/Urinary Catheter Reason for insertion/continuin: Acute obstruct/retention Plan Diet: Continue Current Activity: Continue Current Therapy: PT, OT Medications: Start Antibiotics Respiratory: Wean Oxygen Diagnostics: Repeat Labs in AM, Obtain Cultures, TTE VS, I&O, 24H, [facility] Vital Signs/I&O Vital Signs Date Time Temp Pulse Resp B/P Pulse Ox O2 Delivery O2 Flow Rate FiO2 01/09/17 16:07 Room Air 01/09/17 16:00 96.2 66 20 167/77 97 01/08/17 21:50 2.0 I&O- Last 24 Hours up to 6 AM 01/09/17 05:59 Intake Total 370 ml Output Total 2175 ml Balance -1805 ml Laboratory Data 24H LABS Laboratory Tests 2 01/08/17 21:53: Arterial Blood pH 7.273L, Arterial Blood Partial Pressure CO2 28.4L, Arterial Blood Partial Pressure O2 100.6H, Arterial Blood Total CO2 13.7L, Arterial Blood HCO3 12.8L, Arterial Blood Base Excess -12.7L, Arterial Blood Oxygen Saturation 97.8, Blood Gas Bicarbonate Standard 14.3L 01/09/17 06:46: Anion Gap 15, White Blood Count 6.0, Red Blood Count 2.73L, Hemoglobin 8.2L, Hematocrit 26.3L, Mean Corpuscular Volume 96.3H, Mean Corpuscular Hemoglobin 30.1, Mean Corpuscular Hemoglobin Concent 31.2L, Red Cell Distribution Width 16.2H, Platelet Count 194, Neutrophils (%) (Auto) 76.4H, Lymphocytes (%) (Auto) 8.3L, Monocytes (%) (Auto) 7.6H, Eosinophils (%) (Auto) 4.2H, Basophils (%) ( Auto) 0.4, Neutrophils # (Auto) 4.6, Lymphocytes # (Auto) 0.5L, Monocytes # ( Auto) 0.5, Eosinophils # (Auto) 0.2, Basophils # (Auto) 0.0, Blood Urea Nitrogen 89H, Creatinine 4.45H, Sodium Level 141, Potassium Level 4.7, Chloride Level 111H, Carbon Dioxide Level 15L, Calcium Level 7.9L, Creatine Kinase MB 6.6H, Creatine Kinase MB Relative Index 6.87H, Glomerular Filtration Rate 13.5L , Large Unclassified Cells # 0.2, Large Unclassified Cells % 2.9, Total Creatine Kinase 96, Troponin I 0.06 CBC/BMP Laboratory Tests 01/09/17 06:46 Calcium Level 7.9 L, Red Blood Count 2.73 L, Mean Corpuscular Volume 96.3 H, Mean Corpuscular Hemoglobin 30.1, Mean Corpuscular Hemoglobin Concent 31.2 L, Red Cell Distribution Width 16.2 H, Neutrophils (%) (Auto) 76.4 H, Lymphocytes ( %) (Auto) 8.3 L, Monocytes (%) (Auto) 7.6 H, Eosinophils (%) (Auto) 4.2 H, Basophils (%) (Auto) 0.4, Neutrophils # (Auto) 4.6, Lymphocytes # (Auto) 0.5 L, Monocytes # (Auto) 0.5, Eosinophils # (Auto) 0.2, Basophils # (Auto) 0.0 Microbiology Microbiology 01/08/17 Urine Culture, Received Pending QUEENIE MANZANO MD Jan 09, 2017 20:00
[2017-01-09] MEDS: CALCITRIOL 0.25 MCG CAP (S0169) PO SCH (21:20)
[2017-01-09] MEDS: MINOXIDIL 2.5 MG TAB PO SCH (21:21)
[2017-01-09] MEDS: AZITHROMYCIN INJ 500 MG, VIAL MATE ADAPTER 1 EACH in D5W 250 ML IV SCH (21:21)
[2017-01-09] MEDS: HYDROCORTISONE 5MG TABLET PO SCH (21:23)
[2017-01-10] VITALS (10 sets, daily range): BP systolic 99–186; BP diastolic 57–80; PULSE 68–70
[2017-01-10] MEDS: FUROSEMIDE 40 MG/4 ML VIAL (J1940) IV SCH ×5 (00:37→16:00)
[2017-01-10 05:35] LABS: BASO % 0.4 % (0.0-1.0); EOS # 0.2 K/mm3 (0.0-0.50); EOS % 4.1 % (0.0-3.0); LARGE UNSTAINED CELL # 0.2 K/mm3 (0.0-0.4); LARGE UNSTAINED CELL % 3.4 % (0.0-4.0); LYMPH # 0.6 K/mm3 (1.5-4.5); LYMPH % 8.9 % (24.0-44.0); MEAN CORPUSCULAR HEMOGLOBIN 30.4 pg (27.0-33.0); MEAN CORPUSCULAR HGB CONC 32.2 g/dl (32.0-36.5); MEAN CORPUSCULAR VOLUME 94.3 fl (80.0-96.0); MONO # 0.5 K/mm3 (0.0-0.8); MONO % 8.7 % (0.0-5.0); NEUTROPHILS # 4.6 K/mm3 (1.8-7.7); NEUTROPHILS % 74.5 % (36.0-66.0); PLATELET COUNT, AUTOMATED 184 k/mm3 (150-450); WHITE BLOOD COUNT 6.2 K/mm3 (4.0-10.0)
[2017-01-10 05:52] LABS: CREATININE FOR GFR 4.58 MG/DL (0.70-1.30); GLOMERULAR FILTRATION RATE 13.1 (>35); POTASSIUM SERUM 4.8 MEQ/L (3.5-5.1)
[2017-01-10] MEDS: LEVOTHYROXINE 0.1 MG TAB (100 MCG) PO SCH (06:35)
[2017-01-10] MEDS: CALCIUM ACETATE 667 MG GELCAP PO SCH ×3 (08:00→18:00)
[2017-01-10] MEDS: SODIUM BICARBONATE 325 MG TAB PO SCH ×3 (08:12→21:20)
[2017-01-10] MEDS: MULTIVITAMINS/MINERALS THERAP 1 TAB PO SCH (08:12)
[2017-01-10] MEDS: VITAMIN D 1,000 INTERNATIONAL UNITS TABLET PO SCH ×2 (08:13→21:21)
[2017-01-10] MEDS: HYDROCORTISONE 10 MG TAB PO SCH (08:21)
[2017-01-10] MEDS: LABETALOL 100 MG TAB PO SCH ×2 (08:22→21:24)
[2017-01-10] MEDS: MINOXIDIL 2.5 MG TAB PO SCH ×2 (08:22→21:00)
[2017-01-10] MEDS: ASPIRIN 81 MG ENTERIC TAB PO SCH (08:22)
[2017-01-10] MEDS: FERROUS SULFATE 325MG TAB PO SCH ×2 (08:22→21:21)
[2017-01-10] MEDS ORDERED: CONRAY-60 60% 50ML VIAL (Q9961) As Ordered ONE ×2 (09:32→12:56)
[2017-01-10] MEDS ORDERED: ceFAZolin 2 GM/D5W 50 ML IV BAG (J0690) As Ordered ONE (10:01)
--- NOTE | 2017-01-10 10:17 | ECHO ---
DATE OF PROCEDURE: 01/09/2017 HEIGHT: 70 inches. WEIGHT: 176 pounds BODY SURFACE AREA: 1.98 meters squared. REFERRING PHYSICIAN: Dr. Douglas Sifuentes. INDICATION: Dyspnea. MEASUREMENTS: 2-D Measurements: RV - 5.0 cm LV - 5.5 cm Septum -1.2 cm Posterior wall -1.2 cm Aortic root - 3.4 cm LA - 4.6 cm LVEF - 55% Doppler Measurements: AV - 1.5 meters per second LVOT - 0.85 meters per second LVOT diameter - 2.3 cm MV - E 112, A - 55, E/A ratio 2 Early mitral deceleration time - 137 ms E prime 5.7, A prime 7.1, E/E ratio 19.8 PV - 0.85 meters per second Pulmonary artery acceleration time 106 milliseconds RVSP - 65 mmHg IVC - 2.4 cm COMMENTS: Normal sinus rhythm without intraventricular conduction disturbance. Moderately dilated left atrium with left ventricle upper limits of normal to mildly dilated. At least moderately dilated right heart chambers. LV wall thickness was upper limits of normal to mildly hypertrophied. On real-time imaging from the parasternal and apical projections, wall motion was symmetrical and normal. Moderately thickened mitral annulus with slightly thickened leaflet edges but adequate leaflet excursion and no posterior systolic buckling. Three equal size aortic cusps with mild - moderately thickened cusp edges but adequate cusp separation with premature cusp closure suggestive of a reduced forward stroke volume. Normal aortic root size. No apparent intracardiac mass or pericardial effusion. Color flow Doppler study taken from the parasternal and apical projection showed moderate aortic, moderately severe mitral and mild tricuspid with mild pulmonic insufficiency. Guided continuous wave Doppler of his aortic valve showed a normal peak systolic velocity against LV outflow tract obstruction. Pulsed and continuous wave Doppler of his LV inflow tract taken from the apical four-chamber projection showed normal peak diastolic filling velocities against mitral stenosis. There was more prominent early passive filling pattern with an abbreviated early mitral deceleration time in keeping with a restrictive impairment of LV diastolic function and elevated left ventricular end-diastolic pressure. This was further confirmed by tissue Doppler of her mitral annulus. His estimated mean left atrial pressure was 30 mmHg. Pulsed and continuous wave Doppler of his pulmonary trunk showed a normal peak systolic velocity against RV outflow tract obstruction. His pulmonary artery acceleration time was somewhat abbreviated suggestive of an elevated pulmonary vascular resistance. Guided continuous wave Doppler of his tricuspid valve allowed our estimation of his right ventricular systolic pressure (severely increased). His inferior vena cava was least mildly dilated with reduced respiratory collapse in keeping with an elevated central venous pressure. CONCLUSIONS: Slightly dilated and hypertrophied left ventricle with at least mild impairment of global resting systolic function (in light of the observed valvular insufficiency a normal ejection fraction would have been at least 65%; not 55%). Prominently dilated left atrium with Doppler evidence of a restrictive impairment of LV diastolic function and elevated mean left atrial pressure. Moderately dilated right heart chambers with Doppler evidence of severe pulmonary hypertension. Dilated inferior vena cava with reduced respiratory collapse in keeping with an elevated central venous pressure. Mild aortic valvular sclerosis without stenosis but moderate insufficiency. Moderate degenerative changes of the mitral valvular apparatus without inflow tract obstruction but moderately severe insufficiency. Comparing the above test findings with those of prior study 2015, left ventricular function has decreased, left atrial size and estimated mean left atrial pressure has increased along with right heart chamber sizes and pulmonary arterial pressure. The degenerative changes of the mitral and aortic valvular apparatus have worsened with more significant valvular insufficiency.
[2017-01-10] MEDS ORDERED: LIDOCAINE 2% INJ 100 MG/5 ML SDV (FOR ANES.) As Ordered ONE (10:30)
[2017-01-10] MEDS ORDERED: PROPOFOL 200 MG/20 ML VIAL As Ordered ONE (10:30)
[2017-01-10] MEDS ORDERED: PHENYLephrine HCL 500 MCG/5 ML (100MCG/ML) SYRINGE (J2370) As Ordered ONE (10:30)
[2017-01-10] MEDS ORDERED: HYDROCORTISONE 100 MG/2 ML VIAL (J1720) As Ordered ONE (10:30)
[2017-01-10] MEDS ORDERED: DESFLURANE 240 ML INHALANT As Ordered ONE ×2 (10:30→13:00)
[2017-01-10] MEDS ORDERED: MIDAZOLAM INJ 2 MG/2 ML VIAL (J2250) As Ordered ONE (10:30)
[2017-01-10] MEDS ORDERED: ePHEDrine SULFATE 25 MG/5 ML(5MG/ML) SYRINGE As Ordered ONE ×2 (10:30→11:27)
[2017-01-10] MEDS ORDERED: fentaNYL 100 MCG/2 ML INJECTION (J3010) As Ordered ONE ×2 (10:30→14:15)
--- NOTE | 2017-01-10 10:31 | IPNPDOC ---
Subjective Date Seen The patient was seen on 01/10/17. Subjective Chief Complaint/HPI The patient is a 86-year-old male admitted with a reason for visit of Chf; Sob. Events since last encounter No complaints this morning, Shortness of breath has improved, leg swelling improving , hematuria continues, Going for urology procedure this am , no fever or chills, no cough or phlegm , no nausea or vomiting or diarrhea. No abdominal pain. Objective Physical Examination General Exam: Positive: Alert, Cooperative, No Acute Distress Eye Exam: Positive: Conjunctiva & lids normal, EOMI, PERRLA, Negative: Sclera icteric ENT Exam: Positive: Atraumatic, Mucous membr. moist/pink Neck Exam: Positive: Supple Chest Exam: Positive: Normal air movement, Other (b/l crackles), Wheezing Heart Exam: Positive: Rate Normal, Regular Rhythm Telemetry: Positive: PVCs Abdomen Exam: Positive: Normal bowel sounds, Soft, Negative: Tenderness Extremity Exam: Positive: Edema Neuro Exam: Positive: Normal Speech Psych Exam: Positive: Oriented x 3 Assessment /Plan Problems (1) CHF (congestive heart failure) Status: Acute Response to Treatment: Uncompensated Discussed With: Patient Problem Text: Chf exacerbation both diastolic and systolic as well as right heart failure. mucolytics, incentive spirometry, acapella. IV lasix. I/O'S, daily weights. serial cardiac markers. telemetry. (2) Pneumonia Status: Acute Response to Treatment: Progressing Discussed With: Patient Problem Specific Plan: Monitor Clinically, Repeat Labs, Repeat Tests Problem Text: LLL infiltrate as per CT abdomen/pelvis Will start antimicrobial therapy - ceftriaxone/azithromycin. MRSA screen. Sputum culture/gram stain. (3) Hydronephrosis Status: Acute Discussed With: Patient Problem Specific Plan: Consult Specialist, Monitor Clinically, Repeat Labs Problem Text: New right hydronephrosis as per CT abdomen/pelvis. Urology consultation pending, likely obstructive uropathy. B/L iliac artery aneurysms noted, also present on previous CT 11/16. Nephrology consultation pending. (4) Ureteral stricture, left Status: Acute Discussed With: Patient Problem Specific Plan: Consult Specialist, Monitor Clinically, Repeat Labs Problem Text: Recent left stent exchange 01/06/[address] Hilario. 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 Discussed With: Patient Problem Specific Plan: Monitor Clinically Problem Text: continue hydrocortisone (14) AAA (abdominal aortic aneurysm) Status: Chronic Discussed With: Patient Problem Specific Plan: Monitor Clinically Problem Text: s/p aorto-bifemoral graft in 1999 as per documentation has 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 Plan/VTE VTE Prophylaxis Ordered?: Yes Plan/Urinary Catheter Reason for insertion/continuin: Acute obstruct/retention Plan Diet: Continue Current Activity: Continue Current Therapy: PT, OT Medications: Start Antibiotics Respiratory: Wean Oxygen Diagnostics: Repeat Labs in AM, Obtain Cultures, TTE VS, I&O, 24H, Fishbone Vital Signs/I&O Vital Signs Date Time Temp Pulse Resp B/P Pulse Ox O2 Delivery O2 Flow Rate FiO2 01/10/17 07:15 96.1 68 20 129/66 95 Room Air 01/08/17 21:50 2.0 I&O- Last 24 Hours up to 6 AM 01/10/17 06:00 Intake Total 1570 ml Output Total 4300 ml Balance -2730 ml Laboratory Data 24H LABS Laboratory Tests 2 01/10/17 04:49: Anion Gap 13, White Blood Count 6.2, Red Blood Count 2.63L, Hemoglobin 8.0L, Hematocrit 24.8L, Mean Corpuscular Volume 94.3, Mean Corpuscular Hemoglobin 30.4 , Mean Corpuscular Hemoglobin Concent 32.2, Red Cell Distribution Width 16.0H, Platelet Count 184, Neutrophils (%) (Auto) 74.5H, Lymphocytes (%) (Auto) 8.9L, Monocytes (%) (Auto) 8.7H, Eosinophils (%) (Auto) 4.1H, Basophils (%) (Auto) 0.4 , Neutrophils # (Auto) 4.6, Lymphocytes # (Auto) 0.6L, Monocytes # (Auto) 0.5, Eosinophils # (Auto) 0.2, Basophils # (Auto) 0.0, Blood Urea Nitrogen 98H, Creatinine 4.58H, Sodium Level 141, Potassium Level 4.8, Chloride Level 110H, Carbon Dioxide Level 18L, Calcium Level 8.0L, Glomerular Filtration Rate 13.1L, Large Unclassified Cells # 0.2, Large Unclassified Cells % 3.4 CBC/BMP Laboratory Tests 01/10/17 04:49 Calcium Level 8.0 L, Red Blood Count 2.63 L, Mean Corpuscular Volume 94.3, Mean Corpuscular Hemoglobin 30.4, Mean Corpuscular Hemoglobin Concent 32.2, Red Cell Distribution Width 16.0 H, Neutrophils (%) (Auto) 74.5 H, Lymphocytes (%) (Auto ) 8.9 L, Monocytes (%) (Auto) 8.7 H, Eosinophils (%) (Auto) 4.1 H, Basophils (% ) (Auto) 0.4, Neutrophils # (Auto) 4.6, Lymphocytes # (Auto) 0.6 L, Monocytes # (Auto) 0.5, Eosinophils # (Auto) 0.2, Basophils # (Auto) 0.0 Microbiology Microbiology 01/10/17 MRSA Screen, Received Pending 01/08/17 Urine Culture - Final, Complete QUEENIE MANZANO MD Jan 10, 2017 10:31
[2017-01-10] MEDS ORDERED: CALCIUM CHLORIDE 10% 1 GM/10 ML SYR As Ordered ONE (10:37)
[2017-01-10] MEDS ORDERED: PHENYLEPHRINE INJ 10MG/ML VIAL (J2370) As Ordered ONE (11:07)
[2017-01-10] MEDS ORDERED: ONDANSETRON 4MG/2ML VIAL (J2405) As Ordered ONE (11:13)
[2017-01-10] MEDS ORDERED: FUROSEMIDE 100 MG/10 ML VIAL (J1940) As Ordered ONE (12:02)
[2017-01-10 14:15] LABS: MEAN CORPUSCULAR HEMOGLOBIN 30.2 pg (27.0-33.0); MEAN CORPUSCULAR HGB CONC 32.2 g/dl (32.0-36.5); RED CELL DISTRIBUTION WIDTH 16.3 % (11.5-14.5); WHITE BLOOD COUNT 6.1 K/mm3 (4.0-10.0)
[2017-01-10] MEDS ORDERED: LR 1,000 ML IV SCH (14:15)
[2017-01-10] MEDS ORDERED: ONDANSETRON 4MG/2ML VIAL (J2405) IV PRN (14:15)
[2017-01-10] MEDS: fentaNYL 100 MCG/2 ML INJECTION (J3010) IV PRN ×3 (14:18→14:40)
[2017-01-10] MEDS ORDERED: LEVALBUTEROL 1.25 MG/0.5 ML CONCENTRATE NEB As Ordered ONE (14:20)
[2017-01-10] MEDS ORDERED: LEVALBUTEROL 1.25 MG/0.5 ML CONCENTRATE NEB NEB ONE (14:30)
[2017-01-10 14:33] LABS: CREATININE FOR GFR 3.87 MG/DL (0.70-1.30); GLOMERULAR FILTRATION RATE 15.9 (>35); POTASSIUM SERUM 4.5 MEQ/L (3.5-5.1)
[2017-01-10] MEDS ORDERED: LABETALOL HCL 100 MG/20 ML VIAL As Ordered ONE (14:33)
--- NOTE | 2017-01-10 18:23 | CR ---
DATE OF CONSULTATION: 01/09/2017 REQUESTING PHYSICIAN: Douglas Sifuentes MD. REASON FOR CONSULTATION: Acute renal failure and difficulty breathing. HISTORY OF PRESENT ILLNESS: Mr. Reardon is an 86-year-old gentleman who is well known to me. 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 Over last couple of weeks, the patient had worsening shortness of breath. His diuretics were increased as an outpatient. Two days prior to this emergency room admission, the patient underwent exchange of his left ureteral stent. He also had resection of bladder tumor at that point which caused bleeding and the patient was given bladder irrigation. His diuretics were held and he was also given intravenous (IV) fluid in order to improve his urine output. However, the patient became very short of breath after he was discharged from the hospital by urology. He was seen in my office and was sent to the emergency room yesterday due to decompensated congestive heart failure and worsening acute renal failure and acidosis. The patient was admitted last evening. I discussed the case with the emergency room physician on multiple occasions yesterday and gave directions for his care. The patient is seen this morning in the emergency room where he is waiting for a progressive care unit (PCU) bed. PAST MEDICAL AND SURGICAL HISTORY Significant for: 1. History of urothelial bladder carcinoma. 2. History of congestive heart failure. 3. History of hypertension. 4. History of stage IV chronic kidney disease. 5. History of Robb's disease. 6. History of hypothyroidism. 7. History of anemia. 8. History of left-sided hydronephrosis, status post ureteral stent placement. 9. History of pleural effusion which he had drained last few days. PERSONAL AND SOCIAL HISTORY: The patient is a smoker. There is no history of alcohol or drug use. FAMILY HISTORY: Negative for end-stage renal disease. MEDICATIONS His home medications include: - amiloride 10 mg twice a day - aspirin 81 mg daily - furosemide 40 mg twice a day - calcium acetate one capsule three times a day with meals - calcitriol 0.75 mcg daily - Epogen 10,000 units once a month - ferrous sulfate 325 mg twice a day - hydrocortisone 10 mg every morning and 5 mg every evening - labetalol 100 mg twice a day - levothyroxine 100 mcg - minoxidil 2.5 mg daily - multivitamin one tablet daily - sodium bicarbonate 650 mg three times a day - vitamin D 1000 units daily ALLERGIES: The patient has allergy to LATEX and TAPE. There are no known drug allergies. REVIEW OF SYSTEMS: The patient has been feeling poorly for last several days. He became acutely short of breath on . There is no reported fever or chills. HEENT: He denies any headache. Ears, nose and throat are unremarkable. There is no history of nosebleed. CARDIOVASCULAR SYSTEM: Is significant for worsening shortness of breath and peripheral edema. RESPIRATORY SYSTEM: Is significant for cough without any hemoptysis or pleuritic type of chest pain. GASTROINTESTINAL (GI) SYSTEM: Is negative for vomiting or diarrhea. GENITOURINARY () SYSTEM: Is as per history of present illness. The patient currently has a Marie catheter with gross hematuria. ENDOCRINE SYSTEM: Is significant for hypothyroidism and Shoshone's disease. There is no history of diabetes. HEMATOLOGICAL SYSTEM: Is significant for recurrent anemia. PSYCHOSOCIAL SYSTEM: Is negative for depression or anxiety. NEUROLOGICAL SYSTEM: Is negative for seizures or stroke. MUSCULOSKELETAL SYSTEM: Is significant for generalized weakness and leg edema. PHYSICAL EXAMINATION: GENERAL: At present the patient is lying in the bed with head end elevated only at about 20 degrees. VITAL SIGNS: His temperature is 96.9 degrees Fahrenheit, heart rate 68 per minute and respiratory rate 18 per minute. Blood pressure 131/62 mmHg and oxygen saturation 97% on room air. HEENT: Head is atraumatic. Pupils are equal and reactive to light and sclerae are anicteric. Ears, nose and throat are unremarkable. NECK: Is supple and without any thyroid enlargement. Neck veins are about 7 cm above sternal angle. HEART/LUNGS: Sounds are regular and lungs have bilateral rales. ABDOMEN: Soft and nontender. There is no palpable organomegaly. Bowel sounds are normal. EXTREMITIES: Have no cyanosis or clubbing. There is 1+ edema on both lower extremities. NEUROLOGIC: He is awake, alert and oriented times three. SKIN: Has no rash or ulcers. LABORATORY AND IMAGING STUDIES: The patient had a CT scan of abdomen and pelvis done in the emergency room last evening which showed left ureteral stent in place with no left-sided hydronephrosis. Moderate right-sided hydronephrosis and hydroureter was also noted. Status post aortic and bifemoral grafting. Left-sided diverticulosis and small bilateral pleural effusions noted. His labs included a WBC count 7.0, hemoglobin 8.9 and hematocrit 28.6. Blood gas done yesterday showed a pH of 7.27, pCO2 28.4 and pO2 100.6. Bicarb was 14. His chemistry yesterday showed sodium 140 and potassium 5.2. BUN 89 and creatinine 4.54. CO2 was 16. A BNP level is 2410. Troponin less than 0.05. His CPK has been 106, 142 and 96 respectively. Today BUN is 89 and creatinine 4.45. CO2 is 15, sodium 141 and potassium 4.6. PROBLEMS: 1. Acute renal failure superimposed on chronic kidney disease. Most likely a result of congestive heart failure and right-sided hydronephrosis. The patient had his left ureteral stent replaced just a couple of days ago. His left kidney is smaller and atrophic and probably does not have much contribution to his total kidney function. Most likely his right kidney is predominantly functioning which is now obstructed. His hydronephrosis is worse and he is likely to benefit from a right-sided ureteral stent placement. A urology consultation is pending. 2. Congestive heart failure. The patient remains decompensated though improved since yesterday. I would recommend to continue with diuresis and monitor his urine output. He is currently receiving 40 mg Lasix every four hours. 3. Pneumonia. The patient is being treated with ceftriaxone and azithromycin and he is currently afebrile. 4. Hypertension. The patient is on minoxidil 10 mg daily in addition to labetalol and diuretics. I will cut down his minoxidil dose to only 2.5 mg twice a day and monitor his blood pressure closely. 5. Metabolic acidosis. His acidosis got worse due to acute renal failure. At present he is receiving sodium bicarbonate 650 mg three times a day. We are trying to correct his volume status. I feel that once his right-sided hydronephrosis gets taken care of and his right kidney starts functioning, his acidosis will improve. 6. Anemia. His anemia is worse; however, he is also somewhat hypervolemic. At present we will hold off on transfusion and monitor closely. He is likely to require transfusion. 7. Hyperparathyroidism. I suggest to continue with calcitriol 0.75 mcg and calcium acetate. 8. Adrenal insufficiency. The patient is receiving his maintenance dose of steroids. I do not feel that a stress dose is indicated at present. I thank you for involving me in the care of Mr. Reardon. I will follow him along with you.
[2017-01-10] MEDS: cefTRIAXone SOD 1 GM in D5W MINI-BAG PLUS 50 ML IV SCH (18:30)
[2017-01-10] MEDS ORDERED: methylPREDNISolone INJ 125 MG/2 ML VIAL (J2930) IV ONE (20:15)
[2017-01-10] MEDS: HYDROCORTISONE 5MG TABLET PO SCH ×2 (21:00→22:06)
[2017-01-10] MEDS ORDERED: AZITHROMYCIN 250 MG TAB PO SCH (21:00)
[2017-01-10 21:15] LABS: CREATININE FOR GFR 4.02 MG/DL (0.70-1.30); GLOMERULAR FILTRATION RATE 15.2 (>35); POTASSIUM SERUM 4.7 MEQ/L (3.5-5.1)
[2017-01-10] MEDS: CALCITRIOL 0.25 MCG CAP (S0169) PO SCH (21:21)
[2017-01-11] VITALS: PULSE 77
[2017-01-11 04:00] VITALS: PULSE 76
[2017-01-11 04:45] VITALS: BP 110/57
[2017-01-11 05:34] LABS: BASO % 0.1 % (0.0-1.0); EOS % 0.2 % (0.0-3.0); LARGE UNSTAINED CELL % 0.3 % (0.0-4.0); LYMPH # 0.2 K/mm3 (1.5-4.5); LYMPH % 2.8 % (24.0-44.0); MEAN CORPUSCULAR HEMOGLOBIN 29.5 pg (27.0-33.0); MEAN CORPUSCULAR HGB CONC 31.8 g/dl (32.0-36.5); MEAN CORPUSCULAR VOLUME 92.8 fl (80.0-96.0); MONO # 0.2 K/mm3 (0.0-0.8); MONO % 2.6 % (0.0-5.0); PLATELET COUNT, AUTOMATED 168 k/mm3 (150-450); WHITE BLOOD COUNT 7.4 K/mm3 (4.0-10.0)
[2017-01-11 05:47] LABS: ALBUMIN 2.7 GM/DL (3.2-5.2); CREATININE FOR GFR 4.43 MG/DL (0.70-1.30); GLOMERULAR FILTRATION RATE 13.6 (>35); MAGNESIUM LEVEL 1.7 MG/DL (1.8-2.4)
[2017-01-11 05:49] LABS: POTASSIUM SERUM 5.3 MEQ/L (3.5-5.1)
[2017-01-11] MEDS: LEVOTHYROXINE 0.1 MG TAB (100 MCG) PO SCH (06:06)
[2017-01-11] MEDS: cefTRIAXone SOD 1 GM in D5W MINI-BAG PLUS 50 ML IV SCH ×2 (06:06→18:46)
--- NOTE | 2017-01-11 06:34 | REP ---
REASON: Double J stent catheter placement on right. Multiple fluoroscopic views of the abdomen and pelvis were obtained in my absentia during right sided retrograde pyelography and double J stent catheter placement. Contrast opacifies the right renal collecting system. A double J stent catheter is in place, the proximal portion of which is in the renal pelvis and the distal portion of which is in the urinary bladder. Fluoroscopy time 12 seconds. Signed by Julian Cruz DO 01/11/2017 12:05 P
[2017-01-11] MEDS ORDERED: MAG SULF 1GM/100ML (MAG RUN) 1 GM in APPROPRIATE DILUENT 1 EA IV ONE (07:00)
[2017-01-11 08:00] VITALS: BP 136/66
[2017-01-11] MEDS: IPRATROPIUM 0.5MG/ALBUTEROL 2.5MG INH SOL UD 3ML (DUONEB)(J7620) NEB SCH ×3 (08:00→23:54)
--- NOTE | 2017-01-11 08:35 | CR ---
DATE OF CONSULTATION: 01/09/2017 REASON FOR CONSULTATION: Acute renal failure on top of chronic kidney disease with new onset right hydroureteronephrosis. HISTORY OF PRESENT ILLNESS: The patient is an 86-year-old gentleman well known to both Dr. Hilario and Dr. Angelo with a history of urothelial carcinoma and left external ureteral compression requiring double-J ureteral stent placements since 2011. The patient had an abdominal aortic aneurysm (AAA) repair and it sounds like after worse there was external compression to his left ureter. In September of 2015 he was seen to have a papillary tumor in his bladder which Dr. Hilario resected and this came back with low grade TCC. He then began surveillance protocol and on 01/06/2017 was brought back to the operating room for Dr. Hilario and another TURBT was done for a recurrence of this cancer and this showed high-grade cancer but without any definite muscle invasion. Postoperatively a Marie catheter was placed and the patient was admitted with IV fluids. It sounds as though his diuretic was stopped. Once he returned home, he began experiencing shortness of breath and actually was found to have pleural effusions which were drained this Wednesday. He was admitted last night for this increasing shortness of breath and a CT scan had also been done which showed the new onset of right hydroureteronephrosis. His baseline creatinine appeared to be about 3.2 and yesterday it went up to 4.54 and this morning only came down to 4.45. A urologic consultation was requested. The patient has had gross hematuria since the procedure which was expected. Dr. Hilario did do a balloon dilation of the left ureteral stricture and also had done the TURBT on 01/06/2017. He has had some burning with urination and also some nausea, but he denies any fever or chills. PAST MEDICAL HISTORY: Bladder cancer. Congestive heart failure. High blood pressure. Chronic kidney disease. [place]'s disease. Jerald's thyroiditis. Chronic anemia. PAST SURGICAL HISTORY: Abdominal aortic aneurysm (AAA) repair in 1999. Cholecystectomy. Bilateral cataracts. Left ureteral stent placement originally 12/13 and then every 3-6 months thereafter and TURBT times three with the first 09/15 and current 01/06/2017. MEDICATIONS: - amiloride - aspirin - calcitriol - calcium acetate - cephalexin started by Dr. Hilario postoperatively, appropriate - ferrous sulfate - furosemide 40-80 mg twice daily - hydrocortisone 10 mg in the morning and at night - labetalol - levothyroxine sodium - minoxidil - multivitamin - sodium bicarb - vitamin D ALLERGIES: 1. LATEX causes swelling. 2. TAPE unknown. SOCIAL HISTORY: He quit smoking cigarettes greater than 10 years ago. He does not drink alcohol or use illicit drugs. FAMILY HISTORY: His father of heart failure and his mother of colon cancer. REVIEW OF SYSTEMS: CONSTITUTIONAL: He has had weakness but denied fever or chills. EYES: He had denied any pain or vision changes. ENT: He denied headaches. PULMONARY: He did have some difficulty breathing and some pain with deep inspiration and a cough. CARDIOVASCULAR: He denies any chest pain, palpitations or other abnormalities. GASTROINTESTINAL (GI): He denies any significant constipation, diarrhea, abdominal pain. GENITOURINARY (): He has had bleeding since the last procedure with some burning with urination and a little more frequency than normal. MUSCULOSKELETAL: He does have some mild neck pain. NEUROLOGICAL: He has had some weakness recently. PSYCHOLOGICAL: He has a normal mood. The rest of the 12 system review was otherwise normal. PHYSICAL EXAMINATION: This is a well developed, well nourished gentleman lying in the emergency room in a hospital bed. He has been afebrile. His blood pressure is 126/80. His pulse is 62 and his respiratory rate is 18 with a pulse oximetry of 96% on room air. This was 93% last night. He is alert and oriented times three. His head is normocephalic, atraumatic. His eyes are pupils equal, round, reactive to light and extraocular muscles intact. His trachea is midline and he has no significant supraclavicular or cervical adenopathy. His heart has a regular rate and rhythm and there is no rubs, gallops or murmurs appreciated. He does have some mild bilateral crackles on lung exam with some mild wheezing, but what seems like good air movement. He has no significant CVA tenderness on exam today and his abdomen is otherwise soft and nontender without any rebound, guarding or masses. A Marie catheter is in place draining bloody urine. His extremities show no cyanosis, clubbing or edema on exam today. He did have edema yesterday. LABORATORY DATA: His hemoglobin and hematocrit today is 8.2/26.3. His baseline creatinine on 12/24/2016 was 3.2 and on 01/08 it was up to 4.54 with a BUN of 89. Today his creatinine is 4.45. A urinalysis showed too numerous to count red blood cells and 10-15 white blood cells per high power field and a urine culture is still pending. Pathology from 01/06/2017 showed high-grade urothelial carcinoma with elements of carcinoma in situ but no evidence of muscular invasion. IMAGING STUDIES: A CT scan of the abdomen and pelvis was done on 01/08/2015 which showed a severely atrophic left kidney with a stent in good placement. On the right side there is mild hydroureteronephrosis to the level of an aneurysm at the distal common iliac artery and there are several intrarenal stones that appear to be nonobstructing and nothing else is seen in the ureter at this time. There is a pleural effusion and clots are seen in the bladder. DISCUSSION: I discussed this case with Dr. Angelo, the patient and the patient's daughter at length in the emergency room today. The patient is medically stabilized at this point from his CHF and difficulty breathing. We will plan tomorrow to do a cystoscopy, right retrograde pyelogram, and right ureteral stent placement. It is possible that we may need to do a balloon dilation also, but we will be very careful not to do anything since this is caused by external compression from the aneurysm. We discussed the major risks of the procedure which included but was not limited to the risks of general anesthesia, reactions to medication, bleeding, infection, inability to place a stent and need for a nephrostomy tube instead, injury to the aneurysm, or injury to the genital ureteral region. Consent was obtained in both verbal and written form. IMPRESSION: 1. New onset right hydroureteronephrosis in a patient with chronic kidney disease, but now with an elevated creatinine from baseline secondary to external compression of the right ureter. 2. Longstanding history of left external compression of the left ureter managed by ureteral stent exchanges since 2011. 3. History of transitional cell carcinoma of the bladder, first diagnosed 09/15 with two recurrences since and the last one was 01/06/2017 which showed high-grade urothelial cancer with some carcinoma in situ, but no muscular invasion and the patient underwent a TURBT and ureteral balloon dilation of the left ureteral stent by Dr. Hilario on 01/06/2017 still with fairly significant gross hematuria and clots seen in bladder on CT 4. Post op SOB and exacerbation of CHF with pleural effusion 5. Multiple other medical problems including CHF, high blood pressure, Robb's disease, Jerald's, history of abdominal aortic aneurysm (AAA) repair, and chronic kidney disease as above. PLAN: 1. Surgical consent paperwork was done on along with a consent form and we will plan on bringing the patient to the operating room tomorrow for a cystoscopy, retrograde pyelogram, right ureteral stent placement and possible right ureteral dilation 2. Continue medical management of the fluid overload and acute renal failure on top of chronic kidney disease. 3. Await final urine culture. 4. Continue left ureteral stent. 5. Continue prophylactic antibiotics and the patient is on ceftriaxone now. Thank you very much for this consultation. Please let me know if I could be of any further assistance in the future. At least 90 minutes was spent with this patient today and greater than 50% of this was in [id number] consultation. The rest was coordinating surgery with the operating room, filling out paperwork, and speaking with his other physicians. JOSH
[2017-01-11] MEDS: CALCIUM ACETATE 667 MG GELCAP PO SCH ×3 (08:48→18:47)
[2017-01-11] MEDS: SODIUM BICARBONATE 325 MG TAB PO SCH ×3 (08:48→20:40)
[2017-01-11] MEDS: FERROUS SULFATE 325MG TAB PO SCH ×2 (08:49→20:40)
[2017-01-11] MEDS: VITAMIN D 1,000 INTERNATIONAL UNITS TABLET PO SCH ×2 (08:50→20:41)
[2017-01-11] MEDS: MINOXIDIL 2.5 MG TAB PO SCH ×2 (08:50→20:40)
[2017-01-11] MEDS: MULTIVITAMINS/MINERALS THERAP 1 TAB PO SCH (08:50)
[2017-01-11] MEDS: LABETALOL 100 MG TAB PO SCH ×2 (08:50→20:40)
[2017-01-11] MEDS: HYDROCORTISONE 10 MG TAB PO SCH (08:54)
[2017-01-11] MEDS ORDERED: CONRAY-60 60% 50ML VIAL (Q9961) ONE (09:07)
--- NOTE | 2017-01-11 09:26 | IPNPDOC ---
Subjective Date Seen The patient was seen on 01/11/17. Subjective Chief Complaint/HPI The patient is a 86-year-old male admitted with a reason for visit of Chf; Sob. Events since last encounter Pateint had cystoscopy clot evacuation and right retrograde pyelogram with stent placement. procedure was uneventful, does not have complaints this am , seen working with PT in the corridor, no pain , no fever or chills, no nausea or vomiting or diarrhea. Objective Physical Examination General Exam: Positive: Alert, Cooperative, No Acute Distress Eye Exam: Positive: Conjunctiva & lids normal, EOMI, PERRLA, Negative: Sclera icteric ENT Exam: Positive: Atraumatic, Mucous membr. moist/pink Neck Exam: Positive: Supple Chest Exam: Positive: Normal air movement, Other (b/l crackles), Wheezing Heart Exam: Positive: Rate Normal, Regular Rhythm Telemetry: Positive: PVCs Abdomen Exam: Positive: Normal bowel sounds, Soft, Negative: Tenderness Extremity Exam: Positive: Edema Neuro Exam: Positive: Normal Speech Psych Exam: Positive: Oriented x 3 Assessment /Plan Problems (1) Hydronephrosis Status: Acute Discussed With: Patient Problem Text: New hydronephrosis On the right underwent cystoscopy , clot evacuation and stent placement on the right on Has left ureteral external compression since 2011 and stent since then . underwent ureteral dilatation and stent exchange on the left on on 01/06/17 also removal of recurrent papillary bladder tumor on the same day . Had persistent hematuria after the procedure. B/L iliac artery aneurysms noted, also present on previous CT 11/16. (2) Ureteral stricture, left Status: Acute Discussed With: Patient Problem Specific Plan: Consult Specialist, Monitor Clinically, Repeat Labs Problem Text: Recent left stent exchange 01/06/[address] Hilario. persistent hematuria Urology consultation (3) CHF (congestive heart failure) Status: Acute Response to Treatment: Uncompensated Discussed With: Patient Problem Text: Chf exacerbation both diastolic and systolic as well as right heart failure. mucolytics, incentive spirometry, acapella. IV lasix. I/O'S, daily weights. serial cardiac markers. telemetry. (4) Pneumonia Status: Acute Response to Treatment: Progressing Discussed With: Patient Problem Specific Plan: Monitor Clinically, Repeat Labs, Repeat Tests Problem Text: LLL infiltrate as per CT abdomen/pelvis Will start antimicrobial therapy - ceftriaxone/azithromycin. MRSA screen. Sputum culture/gram stain. (5) Bladder cancer Status: Acute Discussed With: Patient Problem Text: recurrence of papillary bladder cancer in december 2016 first diagnosed in sep [address] hilario. (6) Urothelial carcinoma Status: Chronic Discussed With: Patient Problem Specific Plan: Consult Specialist, Monitor Clinically Problem Text: As per pathology - high grade urothelial carcinoma, invasion of toñito/lamina, no muscle invasion present in december 2016. It also has areas of papillary features at places. Had low grade urothelial carcinoma diagnosed in 2011 and was being followed by urology. 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 Discussed With: Patient Problem Specific Plan: Monitor Clinically Problem Text: continue hydrocortisone (14) AAA (abdominal aortic aneurysm) Status: Chronic Discussed With: Patient Problem Specific Plan: Monitor Clinically Problem Text: s/p aorto-bifemoral graft in 1999 as per documentation has bilateral comanche internal illiac artery aneurysms Plan/VTE VTE Prophylaxis Ordered?: Yes Plan/Urinary Catheter Reason for insertion/continuin: Acute obstruct/retention Plan Diet: Continue Current Activity: Continue Current Therapy: PT, OT Medications: Start Antibiotics Respiratory: Wean Oxygen Diagnostics: Repeat Labs in AM, Obtain Cultures, TTE VS, I&O, 24H, Fishbone Vital Signs/I&O Vital Signs Date Time Temp Pulse Resp B/P Pulse Ox O2 Delivery O2 Flow Rate FiO2 01/11/17 08:50 136/66 01/11/17 08:50 78 01/11/17 08:00 96.0 19 98 Nasal Cannula 2.0 I&O- Last 24 Hours up to 6 AM 01/11/17 06:00 Intake Total 945 ml Output Total 9655 ml Balance -8710 ml Laboratory Data 24H LABS Laboratory Tests 2 01/10/17 14:07: Anion Gap 15, Blood Urea Nitrogen 84H, Creatinine 3.87H, Sodium Level 141, Potassium Level 4.5, Chloride Level 111H, Carbon Dioxide Level 15L, Calcium Level 8.0L, Glomerular Filtration Rate 15.9L 01/10/17 20:40: Anion Gap 13, Blood Urea Nitrogen 82H, Creatinine 4.02H, Sodium Level 142, Potassium Level 4.7, Chloride Level 114H, Carbon Dioxide Level 15L, Calcium Level 7.0L, Glomerular Filtration Rate 15.2L 01/11/17 04:48: Anion Gap 13, Blood Urea Nitrogen 88H, Creatinine 4.43H, Sodium Level 143, Potassium Level 5.3H, Chloride Level 114H, Carbon Dioxide Level 16L, Calcium Level 7.0L, Glomerular Filtration Rate 13.6L, Albumin 2.7L, White Blood Count 7.4, Red Blood Count 3.11L, Hemoglobin 9.2L, Hematocrit 28.9L, Mean Corpuscular Volume 92.8, Mean Corpuscular Hemoglobin 29.5, Mean Corpuscular Hemoglobin Concent 31.8L, Red Cell Distribution Width 17.0H, Platelet Count 168, Neutrophils (%) (Auto) 94.0H, Lymphocytes (%) (Auto) 2.8L, Monocytes (%) (Auto) 2.6, Eosinophils (%) (Auto) 0.2, Basophils (%) (Auto) 0.1, Neutrophils # (Auto) 7.0, Lymphocytes # (Auto) 0.2L, Monocytes # (Auto) 0.2, Eosinophils # (Auto) 0.0 , Basophils # (Auto) 0.0, Large Unclassified Cells # 0.0, Large Unclassified Cells % 0.3, Magnesium Level 1.7L, Phosphorus Level 7.0H CBC/BMP Laboratory Tests 01/10/17 14:07 Calcium Level 8.0 L, Red Blood Count 3.27 L, Mean Corpuscular Volume 94.0, Mean Corpuscular Hemoglobin 30.2, Mean Corpuscular Hemoglobin Concent 32.2, Red Cell Distribution Width 16.3 H 01/10/17 20:40 Calcium Level 7.0 L 01/11/17 04:48 Red Blood Count 3.11 L, Mean Corpuscular Volume 92.8, Mean Corpuscular Hemoglobin 29.5, Mean Corpuscular Hemoglobin Concent 31.8 L, Red Cell Distribution Width 17.0 H, Anion Gap 13, Neutrophils (%) (Auto) 94.0 H, Lymphocytes (%) (Auto) 2.8 L, Monocytes (%) (Auto) 2.6, Eosinophils (%) (Auto) 0.2, Basophils (%) (Auto) 0.1, Neutrophils # (Auto) 7.0, Lymphocytes # (Auto) 0.2 L, Monocytes # (Auto) 0.2, Eosinophils # (Auto) 0.0, Basophils # (Auto) 0.0 Microbiology Microbiology 01/10/17 MRSA Screen, Received Pending 01/08/17 Urine Culture - Final, Complete QUEENIE MANZANO MD Jan 11, 2017 09:26
[2017-01-11] MEDS ORDERED: FUROSEMIDE 100 MG/10 ML VIAL (J1940) IV ONE (10:00)
[2017-01-11] MEDS ORDERED: IPRATROPIUM 0.5MG/ALBUTEROL 2.5MG INH SOL UD 3ML (DUONEB)(J7620) NEB PRN (10:15)
[2017-01-11 13:32] VITALS: BP 149/66
--- NOTE | 2017-01-11 14:10 | REP ---
Urinary tract sonography: History: Reevaluate hydronephrosis. Bilateral stents positioned on 01/10/2017. Comparison is made with CT study of the abdomen and pelvis on January 08, 2017. Sonographic findings: Scanning through the urinary bladder demonstrates a triangular somewhat mobile thrombus in the bladder dome. Marie catheter is visualized with its balloon. The balloon and the internal end of the Marie catheter appear posteriorly outside of the bladder lumen with bladder wall anterior to them. The distal ends of bilateral double pigtailed ureteral stents are seen within the bladder lumen. No ascites is seen around the Marie catheter. There is a small quantity of ascites elsewhere in the abdomen. I cannot verify that the Marie catheter tip is within the urinary bladder. Renal cortical echogenicity pattern is normal and renal contours are smooth. There is no hydronephrosis visible on the left. Left kidney measures 10.1 x 4.6 x 4.3 cm. There is mild to moderate right-sided hydronephrosis noted without visible hydroureter. The right kidney measures 11.7 x 5.2 x 5.3 cm. Impression: 1. Mild to moderate residual hydronephrosis right kidney. Double pigtailed ureteral stents in place. No hydro on the left. 2. Left renal atrophy. 3. Incidental mild ascites. 4. The internal end of the Marie catheter with its inflated balloon appears to be posteriorly outside of the urinary bladder lumen. Findings were discussed with Dr. Dennis at the time of this dictation. Signed by Arley Elam MD 01/11/2017 07:17 P
[2017-01-11] MEDS ORDERED: CYSTO-CONRAY II 17.2% 250ML VIAL (Q9958) As Ordered ONE (14:41)
--- NOTE | 2017-01-11 16:23 | IPN ---
DATE: 01/10/2017 I came to see Mr. Reardon this morning; however, he was in the operating room. I have gone back now to see him again later this afternoon. The patient underwent cystoscopy and right ureteral stent placement due to right-sided hydronephrosis. Apparently he was found to have lot of blood clots in his bladder, and it took longer than expected to evacuate his bladder. He has a bladder irrigation in progress with clear fluid returned now. The patient has been hypothermic and is currently being warmed up. He denies any nausea or vomiting; however, appetite is poor. His dyspnea has improved. He denies any chest pain. His temperature right now is 94.7 degrees Fahrenheit, heart rate 70 per minute, respiratory rate 20 per minute, blood pressure 130/60 mm of mercury, and oxygen saturation between 95-99% on 2 liters oxygen. His head is atraumatic. Ears, nose, and throat are unremarkable. He is using oxygen via nasal cannula. Neck is supple and without jugular venous distention (JVD) or thyroid enlargement. Heart sounds are regular, and lungs have good bilateral air entry. There is no wheezing or rales. Abdomen is soft and nontender, and bowel sounds are normal. Extremities have no cyanosis or clubbing. Neurologically, he is awake, alert, and oriented times three. Earlier this morning, his hemoglobin was 8.0 and hematocrit 24.8. He received 2 units of packed red blood cells (RBC), and hemoglobin is now up to 9.9 and hematocrit 30.8. WBC count is 6.1. His chemistry this afternoon showed sodium level 141, potassium 4.5, CO2 is 15, BUN 84, and creatinine 3.87. Early this morning his BUN was 98 and creatinine 4.58. Glucose is 139 and calcium 8.0. PROBLEMS: 1. Hypothermia, most likely related to the procedure. I am concerned about possibility of infection. The patient is already on ceftriaxone, and I will increase the frequency to 1 gram every 12 hours. The patient has been chronically steroid dependent, and he did receive an extra dose of 100 mg of hydrocortisone this morning. I will give him one more dose of Solu-Medrol 60 mg now and will continue with his maintenance dose of steroids with hydrocortisone 10 mg in the morning and 5 mg in evening. 2. Acute renal failure superimposed on chronic kidney disease. The patient had right-sided hydronephrosis and underwent a right ureteral stent placement. His kidney function is already improving. His renal profile will be repeated. 3. Congestive heart failure. The patient did have significant hypervolemia related to acute renal failure and hydronephrosis. His volume status has now improved. His intravenous (IV) Lasix is being stopped. We will monitor his electrolytes and kidney function. 4. Blood loss anemia. The patient had blood clots in the bladder, which have been evacuated, and now clear fluid is returning with the irrigation in process. He received 2 units of packed RBC, and his anemia has already improved. 5. Hypertension. Blood pressure control is much better. I will put hold parameters on minoxidil 2.5 mg to hold for blood pressure is less than 130 mm of mercury. 6. Metabolic acidosis. The patient still has acidosis, which is likely to improve as his kidney function is now improving. He remains on sodium bicarbonate 650 mg three times a day. I have discussed the patient's condition and care plan with his daughter on the bedside and have answered all her questions.
--- NOTE | 2017-01-11 16:41 | REP ---
Contrast cystogram: History: Atypical position of the Marie catheter on the bladder sonography today. Findings: 100 ml of Cysto-Conray was infused by gravity drainage. Frontal and lateral views of the pelvis are obtained. The infused contrast is seen extravasated into the perivesical soft tissues. A Marie catheter is seen posterior to the bladder position on the lateral radiograph. Extravasation is seen in the perirectal soft tissues and the extravasation is seen tracking along the anterior aspect of the abdominal wall above the level of the bladder. The pattern is consistent with extraperitoneal disruption. Impression: Extraperitoneal bladder contrast extravasation. Malpositioned Marie catheter. Findings were telephoned to Dr. Dennis at the time of the examination. Signed by Arley Elam MD 01/11/2017 07:19 P
--- NOTE | 2017-01-11 18:07 | RO ---
DATE OF PROCEDURE: 01/10/2017 PREOPERATIVE DIAGNOSIS: Acute on chronic renal failure, found to have right ureteral obstruction. POSTOPERATIVE DIAGNOSIS: Acute on chronic renal failure, found to have right ureteral obstruction. Also with significant clot retention. PROCEDURE: Cystoscopy, significant clot irrigation and fulguration, right retrograde pyelogram and placement of a right double-J ureteral stent. SURGEON: Dr. Bhavani Dennis ANESTHESIA: General. MEDICATIONS: Ancef 1 gram preoperatively. DRAINS: 22-Lithuanian three-way Marie catheter. ESTIMATED BLOOD LOSS: 1000 mL. COMPLICATIONS: The patient did become hypotensive during the procedure and required 2 units of packed red blood cells. INDICATIONS FOR PROCEDURE: The patient is an 86-year-old gentleman, well known to Dr. 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 Last year, he was diagnosed with bladder cancer and Dr. Hilario took him to the operating room on 01/06/2017 since the patient had a recurrence of his bladder cancer. A transurethral resection of bladder tumor was done, and the patient was admitted overnight on continuous bladder irrigation and then sent home with a Marie catheter in place. He has continued to have gross hematuria and actually came back through the emergency room with complaints of shortness of breath and acute on chronic renal failure. He also has CHF. A CT scan showed new right hydroureteronephrosis and when the patient was medically stabilized it was decided to bring him to the operating room for further management. All options, alternative, risks, and benefits were discussed and informed consent was obtained in both verbal and written form. DESCRIPTION OF PROCEDURE: The patient was brought into the operating room. Sequential compression devices were in place and preoperative antibiotics had been given. His Marie catheter was removed. General anesthesia was given. He was then placed in the lithotomy position and careful attention was paid that his pressure points were well padded and protected. He was prepped and draped in the usual fashion. First, I placed a 21-Lithuanian cystoscope. The urethra was noted to be open without any evidence of lesions or strictures. Upon entering the bladder, absolutely nothing could be seen because it was completely filled with blood clots. At this point, I changed to a 25-Lithuanian continuous flow resectoscope and attempted to irrigate clots. The clot was so well formed that it would not irrigate well. At this point, I placed a loop and tried to move the clot around and also used cautery to try to break the clot up and continued to work. It took me over 2 hours in order to free the bladder enough of clots that I could actually see any bladder wall. There was at least 1000 mL of old blood in the bladder, and the patient did become hypotensive during the procedure and required 2 units of packed red blood cells. Once I was able to irrigate the entire clot, which took multiple times of going in and out with the loop, trying to grab as much clot as I could, I finally was able to clear the bladder and see the right ureteral orifice. He did have old areas of where the TURBT was and very deep areas of resection throughout the bladder with some bleeding. I attempted to fulgurate these, but these areas were very, very deep. At this point, I did do a right retrograde pyelogram and there did seem to be distal narrowing of the ureter. At this point, I was able to place a wire and then a 6-Lithuanian double-J ureteral stent without any difficulty. A 22-Lithuanian three-way Marie catheter was placed at the termination of the procedure and continuous bladder irrigation was started. The patient was returned to the recovery room in stable condition. JOSH
--- NOTE | 2017-01-11 18:46 | REP ---
CT study of the abdomen and pelvis without IV or oral contrast: History: Check catheter placement. The Marie catheter has been withdrawn and reinserted in the interval since the cystogram and sonogram from earlier today. Comparison CT study is from 01/08/2017. CT findings: Small bilateral pleural effusions are again noted, right a little larger than left. The right pleural effusion is slightly larger than on the 01/08/2017 prior study. Granulomatous calcifications are seen in the spleen. Liver remains unremarkable. The previously noted right-sided hydronephrosis is improved although not resolved with double pigtail ureteral stents noted in place bilaterally. No left-sided hydronephrosis is seen. There are intrarenal calculi in the right kidney upper and lower pole. There is mild diffuse intraabdominal ascites. This is a new finding compared to the 01/08/2017 prior study although was seen by ultrasound today. Also noted are multiple scattered bubbles of intraperitoneal air in the pelvic reflections of the peritoneal space in the lower abdomen. There is extravasated cystogram contrast to the left of the urinary bladder. The Marie catheter appears by the current CT study to be within the urinary bladder. It is inflated balloon is anterior and medial to the lower ends of the pigtail stents. By ultrasound, the Marie catheter balloon was earlier noted to be posterior to the distal stent pigtails. There is an air-fluid level in the urinary bladder. The extravasated contrast appears to be at in the perivesical fascia rather than in the peritoneal reflections. No peritoneal contrast is appreciated. There is some contrast extravasation seen in the presacral soft-tissues however from today's cystogram study. 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 Impression: There is new ascites and multiple bubbles of free intraperitoneal air are seen in the peritoneum reflections. The air is clustered in the lower pelvis. The replaced Marie catheter appears to be within the urinary bladder. The combination of the ultrasound and cystogram findings with today's CT findings suggest combined extraperitoneal and intraperitoneal bladder injury. Findings were discussed with Dr. Dennis at the time examination. Signed by Arley Elam MD 01/11/2017 07:23 P
[2017-01-11] MEDS: CALCITRIOL 0.25 MCG CAP (S0169) PO SCH (20:39)
[2017-01-11] MEDS: HYDROCORTISONE 5MG TABLET PO SCH (20:41)
--- NOTE | 2017-01-11 21:54 | IPN ---
DATE: 01/11/2017 Mr. Reardon is comfortable lying in a hospital bed. He had no clots overnight and his urine has been clear or light pink on continuous bladder irrigation (CBI). He has no complaints of upper back pain. PHYSICAL EXAMINATION: His temperature is 96 orally with a pulse 78. His respiratory rate is 19, blood pressure is 136/66 and his pulse oximetry on 2 liters nasal cannula is 98%. He is alert and oriented times three. He has no CVA tenderness. His abdomen is soft and nontender. The Marie is draining clear yellow urine on continuous bladder irrigation. His extremities show no cyanosis, clubbing or edema. LABORATORY DATA: His hemoglobin and hematocrit this morning is 9.2/28.9 and this is after 2 units of blood yesterday. His BUN and creatinine today are still elevated at 88/4.43 which is slightly down from admission creatinine of 4.58, but up from yesterday. IMPRESSION: 1. Postoperative day #1 significant clot irrigation from the bladder and placement of a right double-J ureteral stent. 2. Acute renal failure on top of chronic kidney disease with bilateral ureteral obstruction and most likely outlet obstruction from clot retention even with a Marie catheter in place. 3. History of hypotension yesterday in the operating room requiring 2 units of packed red blood cells. 4. CHF admitted with pleural effusions and SOB PLAN: 1. Continue continuous bladder irrigation now but we will try to slow this when urine remains clear 2. Patient most likely to be discharged with the Marie catheter still in place because of how deep the previous TURBT sites were for a total of 7 days postoperatively. 3. Continue supportive care and watch his creatinine and hemoglobin and hematocrit. JOSH
[2017-01-11 22:00] VITALS: BP 144/68
[2017-01-12] MEDS ORDERED: diphenhydrAMINE 25 MG CAP PO ONE (00:45)
--- NOTE | 2017-01-12 04:37 | IPN ---
DATE OF SERVICE: 01/11/2017 SUBJECTIVE: This is an 86-year-old male who was seen and examined at bedside. Yesterday underwent right stent placement and postprocedure he was hypothermic. We did give him a one-time dose of Solu-Medrol intravenously (IV) last night. 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 Feels better this morning compared to last night. Shortness of breath is improved. Had difficulty sleeping last night because he was woken up multiple times by staff. REVIEW OF SYSTEMS: Denies chest pain, palpitations, headaches, lightheadedness, dizziness, abdominal pain or discomfort. No longer reports hematuria from his morales. OBJECTIVE: VITAL SIGNS: Blood pressure 136/66, heart rate 78, respiration rate 19, temperature 96, pulse oximetry 98% on 2 liters nasal cannula. Intake and output last 24 hours: 770 and 8755, though he is currently having bladder irrigated. Weight is 83.4 kg. Yesterday was 77. Question accuracy. GENERAL: Patient is lying in bed, comfortable, in no acute distress. He is alert, awake, oriented to person, place and time. HEENT: Moist oral mucosa. Extraocular movements intact. NECK: Supple. Trachea midline. Neck veins approximately 5 cm above the sternal angle. HEART: Distant sounding, but regular. S1, S2 normal. Systolic murmur in the left fifth intercostal border, 2/6. LUNGS: Diminished in the bases with occasional crackles. No accessory muscle use. ABDOMEN: Soft, protuberant but nontender, nondistended. Bowel sounds present and normal. No guarding, no rebound. No organomegaly. EXTREMITIES: 1+ pitting bilateral lower extremity. NEUROLOGICAL: No focal deficits appreciated. PSYCHIATRIC: Normal affect. LABORATORY DATA: WBC 7.4, hemoglobin 9.2, hematocrit 28.9, platelets 168, neutrophils 94. Sodium 143, potassium 5.3, chloride 114, carbon dioxide 16, BUN 88, creatinine 4.43, glucose 169, calcium 7, phosphorus 7, magnesium 1.7. Albumin 2.7 corrected. Calcium is 8. Methicillin-resistant Staphylococcus aureus (MRSA) screen is negative. Urine culture is no growth. Pyelogram yesterday showed double-J stent placement, catheter in place. Echocardiogram performed this admission showed slightly dilated hypertrophic left ventricle with mild impairment of resting systolic function. Ejection fraction (EF) is at least 65%. Dilated left atrium with evidence of restrictive impairment of LV diastolic function and elevated mean atrial pressure, moderately dilated right heart chamber with severe pulmonary hypertension. Dilated IVC with reduced respiratory collapse. IMPRESSION AND PLAN: Mr. Reardon is an 86-year-old male presented with shortness of breath, found to have acute superimposed on chronic kidney disease secondary to decompensation of congestive heart failure (CHF) and right-sided hydronephrosis. 1. Acute renal failure superimposed on chronic kidney disease (CKD). Likely secondary to combination of right side hydronephrosis and congestive heart failure exacerbation. He was evaluated by Dr. Dennis and underwent right stent placement yesterday. He is currently having his bladder irrigated. Unfortunately, his renal function appears to be worsening today compared to yesterday. We have ordered repeat renal ultrasound to re-evaluate for hydronephrosis. 2. Right-sided hydronephrosis. He is status post right stent placement. Will defer to Dr. Dennis for bladder irrigation and follow her recommendations. Have repeated renal ultrasound as mentioned above. 3. Congestive heart failure, diastolic, decompensated. Due to adequate diuresis and hypotension, we had discontinued his Lasix yesterday. However, on physical exam today he appears to be more fluid overloaded again. Therefore, we have ordered a one-time dose of Lasix intravenously (IV) 80 mg. He will also be started on 1500 mL fluid restriction. 4. Metabolic acidosis. Secondary to renal disease. He is receiving one-time dose Lasix which will also help correct this. Continue sodium bicarbonate 650 mg three times a day. 5. Hyperkalemia. Hopefully will improve with diuretic. 6. Hypomagnesemia. Magnesium has been repleted by primary team. 7. Hyperphosphatemia. Continue PhosLo. 8. Community-acquired pneumonia. He is currently being treated with Rocephin. Azithromycin has been discontinued. On day three of antibiotic. 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 He did require extra dose of Solu-Medrol last night post surgery. 10. Anemia of chronic disease. Could be secondary to dilutional effect as he appears more fluid overloaded today. He is being diuresed, which hopefully will improve his levels. No need for emergent transfusion at this time. 11. Hypertension. Patient, prior to admission, was on minoxidil 10 mg daily; however, we have cut it this down to 2.5 mg twice a day due to his soft pressure. He is also on labetalol 100 mg twice a day and we have a written order for one-time dose Lasix as mentioned above. Will monitor his blood pressure closely. My preceptor for this patient encounter was Dr. Yunier Angelo. The preceptor was physically present in the building during the encounter and was fully available as needed. All aspects of the patient interview, examination, medical decision making process, and medical care plan development were reviewed and approved by the preceptor. The preceptor is aware and concurs with the plan as stated in the body of this note and will attest to such by his/her co-signature. JOSH
[2017-01-12] MEDS: LEVOTHYROXINE 0.1 MG TAB (100 MCG) PO SCH (05:50)
[2017-01-12] MEDS: cefTRIAXone SOD 1 GM in D5W MINI-BAG PLUS 50 ML IV SCH ×2 (05:50→17:43)
[2017-01-12 06:00] VITALS: BP 102/52
[2017-01-12] MEDS ORDERED: ACETAMINOPHEN TAB 650MG DOSE (2X325MG) PO PRN (06:15)
[2017-01-12 07:13] LABS: EOS % 0.1 % (0.0-3.0); LARGE UNSTAINED CELL # 0.1 K/mm3 (0.0-0.4); LARGE UNSTAINED CELL % 1.3 % (0.0-4.0); LYMPH # 0.4 K/mm3 (1.5-4.5); LYMPH % 3.9 % (24.0-44.0); MEAN CORPUSCULAR HEMOGLOBIN 29.2 pg (27.0-33.0); MEAN CORPUSCULAR HGB CONC 31.6 g/dl (32.0-36.5); MEAN CORPUSCULAR VOLUME 92.3 fl (80.0-96.0); MONO # 0.7 K/mm3 (0.0-0.8); MONO % 6.4 % (0.0-5.0); NEUTROPHILS # 9.4 K/mm3 (1.8-7.7); NEUTROPHILS % 88.3 % (36.0-66.0); PLATELET COUNT, AUTOMATED 155 k/mm3 (150-450); WHITE BLOOD COUNT 10.7 K/mm3 (4.0-10.0)
[2017-01-12 07:18] LABS: ALBUMIN 2.8 GM/DL (3.2-5.2); CALCIUM LEVEL 7.6 MG/DL (8.8-10.2); CREATININE FOR GFR 4.68 MG/DL (0.70-1.30); GLOMERULAR FILTRATION RATE 12.8 (>35); PHOSPHORUS LEVEL 7.3 MG/DL (2.5-4.9); POTASSIUM SERUM 4.5 MEQ/L (3.5-5.1)
[2017-01-12] MEDS: IPRATROPIUM 0.5MG/ALBUTEROL 2.5MG INH SOL UD 3ML (DUONEB)(J7620) NEB SCH ×2 (07:52→15:55)
[2017-01-12] MEDS: CALCIUM ACETATE 667 MG GELCAP PO SCH ×3 (08:00→17:42)
[2017-01-12] MEDS: LABETALOL 100 MG TAB PO SCH ×2 (08:59→20:42)
[2017-01-12] MEDS: MINOXIDIL 2.5 MG TAB PO SCH ×2 (09:00→20:43)
[2017-01-12] MEDS: VITAMIN D 1,000 INTERNATIONAL UNITS TABLET PO SCH ×2 (09:01→20:41)
[2017-01-12] MEDS: FERROUS SULFATE 325MG TAB PO SCH ×2 (09:01→20:42)
[2017-01-12] MEDS: MULTIVITAMINS/MINERALS THERAP 1 TAB PO SCH (09:01)
[2017-01-12] MEDS: HYDROCORTISONE 10 MG TAB PO SCH (09:01)
[2017-01-12] MEDS: SODIUM BICARBONATE 325 MG TAB PO SCH ×3 (09:01→20:41)
--- NOTE | 2017-01-12 11:13 | RO ---
DATE OF PROCEDURE: 01/11/2017 I got called this afternoon by Dr. Elam after seeing the patient this morning. He was on continuous bladder irrigation, and his belly was soft and nontender, and he seemed to be doing well. His creatinine did not drop like we had expected, though, but his white blood count was stable at 7.4, as was his hemoglobin and hematocrit. A renal ultrasound was ordered by medicine since the creatine did not drop significantly. I was called by Dr. Elam with the US findings because it appeared that the Marie catheter could have been outside of the bladder. We had discussed that some of the bladder biopsy sites were very deep, and I wondered if the tip of the Marie had gotten into one of these. I went into the hospital and changed his Marie catheter to another 22 three-way without any problems, but before that, we had done a cystogram, which did show an extraperitoneal bladder rupture, which I was not surprised with. Once I put the Marie catheter back in, though, I brought him down to have a CT scan done because I wanted to make sure that the catheter was in the bladder without any incidents. The Marie catheter was well with inside the bladder, but there were some air fluid levels consistent with an intraperitoneal bladder perforation, also. I discussed these findings with the patient's daughter and the patient. Mr. Reardon is still very stable, and his belly is very soft. We discussed that the textbook answer for even a small intraperitoneal bladder rupture is emergent surgery with closure. At this point, though, there were so many little areas of the biopsies, and these all appeared to be so deep at the time of cystoscopy, and because of the severe bleeding, at this point, I would like to continue watching him and consider placing bilateral nephrostomy tubes tomorrow for complete drainage away from the bladder. I have placed a phone call in to Dr. Hilario, who is the patient's primary urologist, but he is still out of town. At this point, we will watch the patient very closely clinically and decide the best next step. JOSH
[2017-01-12 14:00] VITALS: BP 135/72
--- NOTE | 2017-01-12 15:28 | IPN ---
DATE: 01/12/2017 The patient seen and examined. No acute events overnight. Denies any abdominal pain, chest pain, pressure or discomfort, fevers or chills. Marie bag producing pinkish urine. VITAL SIGNS: Temperature 98, pulse 79, respirations 18, blood pressure 135/72, pulse oximetry 93% on room air. LABORATORY: WBC 10.7, hemoglobin and hematocrit 8.6/27.3, platelets 155. Chemistry: Sodium 144, potassium 4.5, chloride 112, bicarbonate 15, BUN 94, creatinine 4.68. PHYSICAL EXAMINATION: GENERAL: The patient alert, oriented times three. No acute distress. HEENT: Normocephalic, atraumatic. CARDIAC: Regular rate and rhythm. Normal S1, S2. PULMONARY: Mild bibasilar crackles, no wheeze. ABDOMEN: Soft, nontender, obese. EXTREMITIES: Trace edema bilateral lower extremities. ASSESSMENT AND PLAN: This is an 86-year-old male patient with underlying medical history of urothelial carcinoma, bladder cancer, congestive heart failure (CHF), ejection fraction of 55% with systolic dysfunction, hypertension, chronic kidney disease (CKD), stage IV, Robb's disease, Jerald thyroiditis, abdominal aortic aneurysm, status post repair, anemia, ureteral stricture, recent left ureteral stent exchange two days prior to admission, was sent in by machine operator picker with worsening shortness of breath, fluid overload, lower extremity swelling. PROBLEM LIST: 1. Right sided hydronephrosis, chronic versus new. Urologist has been consulted, status post cystoscopy. Clot evacuation and stent placement on the right January 10, 2017. Had left ureteral stent compression since 2011 and has been stented with intermittent change since then. Underwent left ureteral stent change on January 06, 2017, with removal of papillary bladder tumor on the same day. Had persistent hematuria after the procedure with possible compression hydronephrosis with possible compression due to bilateral iliac artery aneurysm. Urology has been consulted. Procedure likely complicated with bladder perforation. Case discussed with Dr. Hilario. Will assess kidney function to evaluate the need of right sided nephrostomy tube and continue antibiotics at this time. 2. Left sided ureteral stricture. Followup urology recommendation. Recent left stent exchange January 06, [address] Hilario. Holding aspirin given hematuria. Followup urology recommendation. 3. Acute systolic CHF. Echocardiogram appreciated. Avoid fluid overload. Strict Intake and output (I and O), daily weights. Followup kidney function. Serial cardiac markers appreciated. 4. Pneumonia. Left lower lobe infiltrate. The patient on Rocephin and Zithromax. Followup blood cultures. 5. Bladder cancer. Recurrent papillary bladder cancer December 2016. First diagnosed September 2015. Follows up with Dr. Hilario. 6. Ureteral carcinoma. Followup per urology recommendation. 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 No muscle invasion present in December 2016. Followup urology recommendation. 7. Acute on chronic renal insufficiency. Renal failure. Baseline CKD, stage IV. Kidney function continued to be worsening. Continue sodium bicarbonate, calcitriol. Nephrology has been consulted. Case also discussed with Dr. Hilario. If patient's kidney function does not improve by tomorrow will consider right sided nephrostomy tube. 8. Mitral and aortic regurgitation. New echo shows worsening since two years ago. Diuresis as per nephrology. Continue to follow. Holding diuretic given worsening kidney function. 9. Pulmonary hypertension with worsening right heart failure. Supportive care. Continue to monitor. 10. Anemia. Chronic. Continue to monitor. Transfuse as needed. 11. Hypertension. Continue minoxidil and labetalol. 12. [place]. Continue hydrocortisone. 13. History of Jerald's thyroiditis. Continue Synthroid. 14. Abdominal aortic aneurysm with status post aortobifemoral graft year 1999. 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 Will consider restarting aspirin once cleared by urology. 15. Deep venous thrombosis (DVT) prophylaxis. Sequential compression device. Early ambulation. DISPOSITION: Pending clinical improvement. Urology and nephrology followup.
--- NOTE | 2017-01-12 16:32 | IPN ---
DATE: 01/12/2017 SUBJECTIVE: This is an 86-year-old male who was seen and examined at bedside in medical/surgical floor. Yesterday, he had a rather eventful afternoon. We ordered a kidney ultrasound which unfortunately shows residual moderate hydronephrosis and morales catheter not in the bladder. This was then followed with a cystogram that showed extravasation with malposition Morales. He subsequently had replacement of the Morales catheter and also had a stat CT abdomen and pelvis showing ascites and a bladder injury. He was made nothing by mouth last night for precaution measure. After his Morales was adjusted, he began to have more urine output. Yesterday, we also diuresed him with one time dose of Lasix 80. Unfortunately, intake and output is somewhat difficult to assess as he was also receiving continuous bladder irrigation (CBI) around the same time. He was placed on 1500 mL fluid restriction. He was evaluated by Dr. Dennis closely. This morning, he states that his breathing is a lot better. No chest pain, palpitations, fevers, nausea, vomiting, diarrhea, or constipation. He had two formed bowel movements yesterday. OBJECTIVE: VITAL SIGNS: Blood pressure 132/54, heart rate 70, temperature 98.4, respiration rate 18, pulse oximetry 94% on room air. Intake and output last 24 hours 3345 and 3230. He is supposed to be on a 1500 mL fluid restriction and he also has been receiving continuous bladder irrigation. Therefore intake and output is not accurate. Weight is 81 kg today, yesterday it was 83.4 kg. GENERAL: The patient is sitting in chair, comfortable, in no acute distress. He is alert, awake and oriented times three, pleasant and cooperative. Daughter at bedside. HEENT: Normocephalic, atraumatic. Moist oral mucosa. Extraocular movements intact. Dentures in place. NECK: Supple. Trachea midline. Neck veins approximately 6 cm above the sternal angle. HEART: Distant sounding, but regular. S1, S2 normal. Systolic murmur in the left second intercostal border without radiating to carotids. LUNGS: Diminished bilateral lung bases with occasional crackles. Improved breath sounds today compared to yesterday. ABDOMEN: Soft, nontender, nondistended. Bowel sounds present. No guarding. No rebound. Did not appreciate organomegaly. EXTREMITIES: 1+ pitting edema bilateral lower extremities. Pedal pulses present bilaterally. GENITOURINARY: Morales catheter is in place draining pink tinged urine. NEUROLOGICAL: No focal deficits appreciated. PSYCHIATRIC: Normal affect. LABORATORY DATA: WBC 10.7 increased from yesterday of 7.4, hemoglobin 8.6, hematocrit 27.3 increased from 9.2 yesterday, platelets 155, neutrophils 88.3. Sodium 144, potassium 4.5, chloride 112, carbon dioxide 15, BUN 94, creatinine 4.68 increased from yesterday of 4.43, glucose is 130, calcium 7.6, phosphorus 7.3, magnesium 2, albumin 2.8. Sputum Gram-stain shows moderate epithelial cells, yeast-like organism, positive cocci, few. Renal ultrasound from 01/11/2017 reports mild to moderate residual hydronephrosis, right kidney double pigmented, ureteral stent in place, no hydronephrosis on left, left renal atrophy, incidental mild ascites, internal end of the Morales catheter with its inflated balloon appears to be posteriorly outside of the urinary bladder lumen. Cystogram showed extraperitoneal bladder contrast extravasation, malpositioned Morales catheter. CT abdomen and pelvis yesterday showed new ascites and multiple bubbles of free intraperitoneal air seen in the peritoneum reflections. The air is clustered in the lower pelvis. The replaced Morales catheter appears to be within the urinary bladder. The combination of the ultrasound and cystogram suggest extraperitoneal and intraperitoneal bladder injury. IMPRESSION AND PLAN: Mr. Reardon is an 86-year-old male with a rather complicated past medical history including congestive heart failure (CHF), chronic kidney disease, bladder malignancy requiring multiple recent biopsies and hydronephrosis requiring stent placement outpatient who presented with shortness of breath and found to have decompensation of his CHF and right sided hydronephrosis, underwent right stent placement complicated with bladder perforation. 1. Acute kidney injury superimposed on chronic kidney disease. Renal function was worse today, although this was likely secondary to trauma from yesteray. He required replacement of his Morales as this was found to be in a malposition. His renal ultrasound was repeated with result showing mild to moderate hydronephrosis. He was evaluated yesterday Dr. Dennis. 2. Bladder rupture, extraperitoneal and intraperitoneal. Currently followed by urology. Case discussed with Dr. Dennis. At this time, the recommendation is conservatively monitor for now. The patient's personal urologist, Dr. Hilario, will be evaluating the patient as well. 3. Hydronephrosis, right side. Followed by urology. He is status post stent placement on 01/10/2017. 4. Congestive heart failure, diastolic, decompensated. It is somewhat difficult to evaluate his fluid status after Lasix was given yesterday due to CBI running at the same time. However, symptomatically, he appears to be improving today compared to yesterday. Therefore, we will hold off on diuresis at this time. He should be continued with 1500 mL fluid restriction. 5. Metabolic acidosis secondary to renal disease. He did receive Lasix yesterday. Continue sodium bicarbonate 650 three times a day. 6. Hyperkalemia, resolved with diuresis. 7. Hypomagnesemia, resolved. 8. Hyperphosphatemia. Continue PhosLo. 9. Community-acquired pneumonia. He is currently on Rocephin, day four. 10. Loup's disease. Continue hydrocortisone 10 mg every morning and 5 mg at bedtime. He has not needed extra dose of Solu-Medrol. 11. Anemia of chronic disease, stable. No need for emergent transfusion at this time. 12. Hypertension. Blood pressure is reasonable. Continue minoxidil 2.5 mg daily, labetalol 100 mg twice a day. Hold off on further diuresis at this time. My preceptor for this patient encounter was Dr. Yunier Angelo. The preceptor was physically present in the building during the encounter and was fully available as needed. All aspects of the patient interview, examination, medical decision making process, and medical care plan development were reviewed and approved by the preceptor. The preceptor is aware and concurs with the plan as stated in the body of this note and will attest to such by his/her co-signature. JOSH
[2017-01-12] MEDS: HYDROCORTISONE 5MG TABLET PO SCH (20:41)
[2017-01-12] MEDS: CALCITRIOL 0.25 MCG CAP (S0169) PO SCH (20:42)
[2017-01-12 22:00] VITALS: BP 145/63
[2017-01-12] MEDS: diphenhydrAMINE 25 MG CAP PO PRN (22:31)
[2017-01-13] MEDS: cefTRIAXone SOD 1 GM in D5W MINI-BAG PLUS 50 ML IV SCH (05:53)
[2017-01-13] MEDS: LEVOTHYROXINE 0.1 MG TAB (100 MCG) PO SCH (05:53)
[2017-01-13 06:00] VITALS: BP 118/66
[2017-01-13] MEDS: IPRATROPIUM 0.5MG/ALBUTEROL 2.5MG INH SOL UD 3ML (DUONEB)(J7620) NEB SCH ×4 (07:10→23:07)
[2017-01-13 07:45] LABS: BASO % 0.1 % (0.0-1.0); EOS # 0.2 K/mm3 (0.0-0.50); EOS % 3.1 % (0.0-3.0); LARGE UNSTAINED CELL # 0.1 K/mm3 (0.0-0.4); LARGE UNSTAINED CELL % 1.2 % (0.0-4.0); LYMPH # 0.6 K/mm3 (1.5-4.5); LYMPH % 7.7 % (24.0-44.0); MEAN CORPUSCULAR HEMOGLOBIN 29.5 pg (27.0-33.0); MEAN CORPUSCULAR HGB CONC 32.1 g/dl (32.0-36.5); MEAN CORPUSCULAR VOLUME 92.2 fl (80.0-96.0); MONO # 0.7 K/mm3 (0.0-0.8); MONO % 8.3 % (0.0-5.0); NEUTROPHILS # 6.3 K/mm3 (1.8-7.7); NEUTROPHILS % 79.6 % (36.0-66.0); PLATELET COUNT, AUTOMATED 141 k/mm3 (150-450); RED CELL DISTRIBUTION WIDTH 16.7 % (11.5-14.5); WHITE BLOOD COUNT 7.9 K/mm3 (4.0-10.0)
[2017-01-13 07:59] LABS: ALBUMIN 2.6 GM/DL (3.2-5.2); CALCIUM LEVEL 7.3 MG/DL (8.8-10.2); CREATININE FOR GFR 4.58 MG/DL (0.70-1.30); GLOMERULAR FILTRATION RATE 13.1 (>35); MAGNESIUM LEVEL 2.1 MG/DL (1.8-2.4); PHOSPHORUS LEVEL 6.3 MG/DL (2.5-4.9); POTASSIUM SERUM 3.8 MEQ/L (3.5-5.1)
[2017-01-13] MEDS: MINOXIDIL 2.5 MG TAB PO SCH (09:15)
[2017-01-13] MEDS: SODIUM BICARBONATE 325 MG TAB PO SCH ×3 (09:16→20:51)
[2017-01-13] MEDS: CALCIUM ACETATE 667 MG GELCAP PO SCH ×3 (09:16→16:53)
[2017-01-13] MEDS: FERROUS SULFATE 325MG TAB PO SCH ×2 (09:16→20:49)
[2017-01-13] MEDS: HYDROCORTISONE 10 MG TAB PO SCH (09:16)
[2017-01-13] MEDS: MULTIVITAMINS/MINERALS THERAP 1 TAB PO SCH (09:16)
[2017-01-13] MEDS: LABETALOL 100 MG TAB PO SCH ×2 (09:16→20:50)
[2017-01-13] MEDS: VITAMIN D 1,000 INTERNATIONAL UNITS TABLET PO SCH ×2 (09:16→20:49)
[2017-01-13 14:00] VITALS: BP 138/78
--- NOTE | 2017-01-13 15:14 | IPN ---
DATE OF SERVICE: 01/13/2017 SUBJECTIVE: This is an 86-year-old male who was seen and examined at bedside. Overnight, patient again had difficulty sleeping and Benadryl was started. He was evaluated by Dr. Hilario overnight. Marie still draining light pink urine. REVIEW OF SYSTEMS: Continues to deny any chest pain, shortness of breath, fever or chills, nausea, vomiting, diarrhea, constipation. Had one formed bowel movement this morning and his cough is significantly less. OBJECTIVE: VITAL SIGNS: Blood pressure 111/55, heart rate 89, temperature 97, respiration rate 17, pulse oximetry 95% on room air. INTAKE AND OUTPUT: Last 24 hours 1130 and 2675. Weight 83.2 kg. GENERAL: Patient is sitting in chair, comfortable, no acute distress. He is alert, awake, oriented times three. Pleasant, cooperative. Pale-appearing. Daughter at bedside. HEENT: Normocephalic, atraumatic. Moist oral mucosa. Dentures in place. NECK: Supple. Trachea midline. Neck veins approximately 6 cm above sternal angle. HEART: Distant sounding, but regular with normal S1, S2. Persistent systolic murmur at the left second intercostal border without radiating to the carotids. LUNGS: Breath sounds diminished, but clear bilaterally. No accessory muscle use. Breath sounds are improved today compared to yesterday. ABDOMEN: Soft, nontender, nondistended. Bowel sounds positive. No guarding. No rebound. EXTREMITIES: Trace pedal edema. Pedal pulses diminished, but present. GENITOURINARY (): Marie catheter is in place, draining pink urine, unchanged compared to yesterday. NEUROLOGIC: No focal deficits. PSYCHIATRIC: Normal affect. Cooperative. LABORATORY DATA: WBC 7.9, hemoglobin 8.3, hematocrit 25.9 decreased from yesterday 8.6, platelets 141. Sodium 145, potassium 3.8, chloride 112, carbon dioxide 17 improved from yesterday 15, glucose 130, BUN 100, creatinine 4.58, magnesium 2.1, phosphorus 6.3, calcium 7.3, albumin 2.6. Sputum culture: Yeastlike organism. Methicillin-resistant Staphylococcus aureus (MRSA) screen is negative. IMPRESSION AND PLAN: Mr. Reardon is an 86-year-old male with a rather complicated past medical history , including diastolic congestive heart failure (CHF), chronic kidney disease, bladder malignancy, recurrent hydronephrosis, recurrent stent placement, presented with worsening renal failure secondary to congestive heart failure (CHF) decompensation and hydronephrosis. 1. Acute kidney injury superimposed on chronic kidney disease (CKD). Renal function is improved today compared to yesterday. Hopefully, this will continue to be improved now that he had a stent placed. 2. Hydronephrosis, right side. He is status post stent placement on 2016. Currently being followed closely by urology, Dr. Hilario. 3. Decompensated diastolic heart failure. His volume appears compensated at this time. Will continue holding diuresis, as he symptomatically appears to be improving each day. His last diuresis was two days ago. Continue with 1500 mL fluid restriction. 4. Hypertension. Blood pressure is reasonable. We have decreased his minoxidil from twice a day to minoxidil 2.5 mg daily with hold parameters. 5. Metabolic acidosis secondary to renal disease. Continue sodium bicarbonate 650 three times a day. This is slightly improved today compared to yesterday. Continue to monitor labs. 6. Community-acquired pneumonia. He is on Rocephin. 7. Anemia of chronic disease. Hemoglobin shows a slight decrease today compared to yesterday. Currently, there is no criteria for emergent transfusion at this time. Will repeat labs in the morning. If continues to decrease, he will likely require 1 unit of transfusion. 8. Hyperkalemia. Resolved. 9. Hypomagnesemia. Resolved. 10. Robb's disease. Continue hydrocortisone 10 mg every morning and 5 mg at bedtime. 11. Hyperphosphatemia. Continue PhosLo. My preceptor for this patient encounter was Dr. Yunier Angelo. The preceptor was physically present in the building during the encounter and was fully available as needed. All aspects of the patient interview, examination, medical decision-making process, and medical care plan development were reviewed and approved by the preceptor. The preceptor is aware and concurs with the plan as stated in the body of this note and will attest to such by his/her co-signature. JOSH
--- NOTE | 2017-01-13 16:40 | IPN ---
DATE: 01/13/2017 Patient seen and examined. No acute events overnight. Able to ambulate. Denies any fevers, chills, chest pain, pressure, or discomfort. Denies any nausea or vomiting. Continues to produce pinkish bloody urine in the Marie bag. Able to ambulate. VITAL SIGNS: Temperature 97.1, pulse 89, respirations 16, blood pressure 138/78, pulse oximetry 96% on room air. LABORATORY DATA: WBC 7.9, hemoglobin and hematocrit 8.3/25.9, platelets 141. Chemistry: Sodium 145, potassium 3.8, chloride 112, bicarbonate 17, BUN 100, bicarbonate 4.58. PHYSICAL EXAMINATION: GENERAL: Patient alert and oriented times three in no acute distress. HEENT: Normocephalic, atraumatic. CARDIAC: Regular rate and rhythm. Normal S1, S2. PULMONARY: Bibasilar rhonchi. No wheeze. ABDOMEN: Soft, nontender, nondistended, obese. Positive bowel sounds. EXTREMITIES: 2+ lower extremity edema. ASSESSMENT AND PLAN: This is an 86-year-old male patient with underlying medical history of urothelial carcinoma, bladder cancer, congestive heart failure, ejection fraction 55% with systolic dysfunction, hypertension, chronic kidney disease (CDK) stage IV, Robb disease, Jerald thyroiditis with hypothyroidism, abdominal aortic aneurysm status post repair, anemia, urethral stricture, recent left ureteral stent exchange 2 days prior to admission. Was stented by manager people with worsening shortness of breath, fluid overload and worsening lower extremity swelling. Was sent in by manager people for worsening shortness of breath, fluid overload, and lower extremity swelling. 1. Right-sided hydronephrosis, chronic versus new. Urology has been consulted, status post cystoscopy, clot evacuation, stent placement on the right 01/10/2017. Had left ureteral stent compression since 2011, and has stent has been changed intermittently since then. Underwent left ureteral stent change 01/06/2017 with removal of papillary bladder tumor on the same day. Had persistent hematuria after the procedure with possible compression hydronephrosis due to bilateral iliac artery aneurysm. Urology has been seeing the patient. Procedure likely complicated with bladder perforation. Case discussed with Dr. Hilario. Will evaluate kidney function. If kidney function improved, there is no need for right-sided nephrostomy tube. Continue antibiotics at this time. If kidney function improves, Dr. Hilario will recommend outpatient followup. Will keep the Marie catheter as per urology. 2. Left-sided urethral stricture. Followup urology recommendations. Recent left stent exchange 01/06/[address] Hilario. Withholding aspirin given hematuria. Followup urology recommendations. 3. Acute systolic CHF. Echocardiogram appreciated. Avoid fluid overload. Strict intake and output, daily weight. Followup kidney function. Cardiac marker appreciated. 4. Pneumonia. Left lower lobe infiltrates. Patient on Rocephin and azithromycin. Followup cultures. 5. Bladder cancer. Recurrent papillary bladder cancer. Recurrence December 2016. Was first diagnosed September 2015. Followup with Dr. Hilario. 6. Urethral carcinoma. Followup urology recommendations. Pathology: High-grade urothelial carcinoma invasive stroma and lamina. No muscle invasion present December 2016. Followup urology recommendations. 7. Acute on chronic renal insufficiency, renal failure. Baseline CKD, stage IV. Will monitor kidney function. Continue sodium bicarbonate, calcitriol. Nephrology has been consulted. Case discussed with Dr. Hilario and Dr. Angelo. 8. Mitral and aortic regurgitation. New echo shows worsening since 2 years ago. Diuresis as per nephrology. Continue to follow. Holding diuretics given worsening kidney function. 9. Pulmonary hypertension with worsening right heart failure. Supportive care. Continue to monitor. 10. Anemia, chronic. Continue to monitor. Transfuse as needed. 11. Hypertension. Continue labetalol and minoxidil. 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 Continue hydrocortisone. 13. History of Jerald thyroiditis with hypothyroidism. Continue Synthroid. 14. Abdominal aortic aneurysm, status post aortobifemoral graft, year 2000. 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 Will consider restarting aspirin once approved by urology. 15. Deep vein thrombosis (DVT) prophylaxis. Sequential compression devices, early ambulation. Avoid pharmacologic agents given patient having hematuria. DISPOSITION: Pending clinical improvement, final urology and nephrology recommendations.
[2017-01-13] MEDS: CALCITRIOL 0.25 MCG CAP (S0169) PO SCH (20:50)
[2017-01-13] MEDS: diphenhydrAMINE 25 MG CAP PO PRN (20:50)
[2017-01-13] MEDS: HYDROCORTISONE 5MG TABLET PO SCH (20:55)
[2017-01-13 22:00] VITALS: BP 138/84
[2017-01-14] MEDS: cefTRIAXone SOD 1 GM in D5W MINI-BAG PLUS 50 ML IV SCH (05:35)
[2017-01-14] MEDS: LEVOTHYROXINE 0.1 MG TAB (100 MCG) PO SCH (05:35)
[2017-01-14 06:00] VITALS: BP 141/67
[2017-01-14 07:07] LABS: BASO % 0.3 % (0.0-1.0); EOS # 0.4 K/mm3 (0.0-0.50); EOS % 4.8 % (0.0-3.0); LARGE UNSTAINED CELL # 0.1 K/mm3 (0.0-0.4); LYMPH # 0.8 K/mm3 (1.5-4.5); LYMPH % 10.5 % (24.0-44.0); MEAN CORPUSCULAR HEMOGLOBIN 29.1 pg (27.0-33.0); MEAN CORPUSCULAR VOLUME 90.9 fl (80.0-96.0); MONO # 0.6 K/mm3 (0.0-0.8); NEUTROPHILS # 5.3 K/mm3 (1.8-7.7); NEUTROPHILS % 73.4 % (36.0-66.0); PLATELET COUNT, AUTOMATED 144 k/mm3 (150-450); RED CELL DISTRIBUTION WIDTH 16.6 % (11.5-14.5); WHITE BLOOD COUNT 7.2 K/mm3 (4.0-10.0)
[2017-01-14 07:19] LABS: ALBUMIN 2.6 GM/DL (3.2-5.2); CALCIUM LEVEL 8.2 MG/DL (8.8-10.2); CREATININE FOR GFR 4.32 MG/DL (0.70-1.30); MAGNESIUM LEVEL 2.1 MG/DL (1.8-2.4); PHOSPHORUS LEVEL 5.5 MG/DL (2.5-4.9); POTASSIUM SERUM 3.9 MEQ/L (3.5-5.1)
[2017-01-14] MEDS: FERROUS SULFATE 325MG TAB PO SCH ×2 (08:09→20:29)
[2017-01-14] MEDS: HYDROCORTISONE 10 MG TAB PO SCH (08:09)
[2017-01-14] MEDS: CALCIUM ACETATE 667 MG GELCAP PO SCH ×3 (08:09→16:53)
[2017-01-14] MEDS: SODIUM BICARBONATE 325 MG TAB PO SCH ×3 (08:09→20:30)
[2017-01-14] MEDS: MULTIVITAMINS/MINERALS THERAP 1 TAB PO SCH (08:10)
[2017-01-14] MEDS: VITAMIN D 1,000 INTERNATIONAL UNITS TABLET PO SCH ×2 (08:10→20:30)
[2017-01-14] MEDS: LABETALOL 100 MG TAB PO SCH ×2 (08:10→20:30)
[2017-01-14] MEDS: IPRATROPIUM 0.5MG/ALBUTEROL 2.5MG INH SOL UD 3ML (DUONEB)(J7620) NEB SCH ×3 (08:30→23:52)
[2017-01-14] MEDS ORDERED: MINOXIDIL 2.5 MG TAB PO SCH (09:00)
[2017-01-14] MEDS ORDERED: FUROSEMIDE 40 MG/4 ML VIAL (J1940) IV ONE (11:15)
[2017-01-14 14:00] VITALS: BP 166/76
--- NOTE | 2017-01-14 17:41 | IPN ---
DATE: 01/14/2017 SUBJECTIVE: Patient seen and examined. No acute events overnight. Continues to produce pinkish urine in the Marie bag. Denies any chest pain, pressure, or discomfort. Able to ambulate. Denies any fevers or chills. VITAL SIGNS: Temperature 99.7, pulse 83, respirations 19, blood pressure 148/80, pulse oximetry 95% on room air. LABORATORY DATA: WBC 7.2, hemoglobin and hematocrit 8.2 over 25.7, platelets 144. Chemistry: Sodium 146, potassium 3.9, chloride 113, bicarbonate 18, BUN 94, creatinine 4.3. PHYSICAL EXAMINATION: GENERAL: Patient alert and oriented times three in no acute distress. Pale. HEENT: Normocephalic, atraumatic. CARDIAC: Regular rate and rhythm. Normal S1, S2. PULMONARY: Bilateral rhonchi, no wheeze. ABDOMEN: Soft, nontender, nondistended. Positive bowel sounds. EXTREMITIES: 2+ bilateral lower extremity edema. ASSESSMENT AND PLAN: This is an 86-year-old male patient with underlying medical history of urothelial carcinoma, bladder cancer, congestive heart failure, ejection fraction 55% with systolic dysfunction, hypertension, chronic kidney disease stage IV, Eden's disease, Jerald thyroiditis with hypothyroidism, abdominal aortic aneurysm status post repair, anemia, ureteral strictures, recent left ureteral stent exchange two days prior to admission, was sent to the hospital by gas cutter for worsening shortness of breath, fluid overload, and worsening lower extremity swelling. 1. Right-sided hydronephrosis, chronic versus new. Urologist has been consulted, status post cystoscopy with clot evacuation, stent placement on the right 01/10/2017. Had a ureteral stent compression since 2011, and has stent change intermittently since then. Underwent left ureteral stent change 01/06/2017, with removal of papillary bladder tumor on the same day. The patient had persistent hematuria after the procedure with possible compression of hydronephrosis due to bilateral iliac artery aneurysm. Urology has been seeing the patient. Procedure complicated with bladder perforation. Case was discussed with Dr. Hilario. As per Dr. Hilario, right-sided hydronephrosis likely chronic and does not believe that it is the cause of the patient's worsening kidney function. Kidney function has subsequently improved. Given kidney function has improved, Dr. Hilario recommended outpatient followup plus cystoscopy in two weeks. Continue antibiotics as outpatient. 2. Left-sided ureteral stricture. Follows with urology recommendations. Recent left stent exchange 01/06/2017, with Dr. Hilario. Withholding aspirin, given hematuria. Followup urology, cystoscopy in two weeks. 3. Acute systolic congestive heart failure. Echocardiogram appreciated. Avoid fluid overload. Strict intake and output, daily weight. Diuresis as per gas cutter. Followup kidney function. Cardiac marker appreciated. 4. Acute blood loss anemia secondary to hematuria. Transfuse one unit of packed red blood cells (PRBC). Will give Lasix afterwards. 5. Ureteral carcinoma. Followup urology recommendation. Pathology high-grade urothelial carcinoma invasive stroma and lamina, no muscle invasion, present since December 2016. Followup urology as outpatient. 6. Acute on chronic renal insufficiency, chronic kidney disease (CKD) stage IV at baseline. Will monitor kidney function. Currently improved. Nephrology has been consulted. Continue calcitriol and sodium bicarbonate. Diuresis as per nephrology. 7. Mild mitral and aortic regurgitation. New echocardiogram shows worsening since two years ago. Diuresis as per nephrology. Continue to follow. 8. Pulmonary hypertension with worsening right heart failure. Supportive care, outpatient followup. 9. Chronic anemia. Continue to monitor. Transfuse one unit PRBC. The patient has received Epogen a week ago as per Dr. Angelo. 10. Hypertension. Continue labetalol. Minoxidil has been discontinued. 11. Eden's disease. Continue hydrocortisone. 12. History of Jerald thyroiditis with hypothyroidism. Continue Synthroid. 13. Abdominal aortic aneurysm, status post aortobifemoral graft in 1999. The patient has bilateral [place] gra[place] internal iliac artery aneurysm. Will consider restarting aspirin once approved by urology. 14. Deep venous thrombosis (DVT) prophylaxis: Sequential compression devices, early ambulation. Avoid pharmacological agent, given the patient having hematuria. DISPOSITION: Pending clinical improvement. Case discussed with urology. Physical therapy and final nephrology recommendation.
--- NOTE | 2017-01-14 19:13 | IPN ---
DATE: 01/14/2017 SUBJECTIVE: This is an 86-year-old male who was seen and examined at bedside. Overnight, no reported acute events. Had one bowel movement this morning. Has good appetite. Patient continues to report pink urine out of his Marie. REVIEW OF SYSTEMS: Denies any chest pain, shortness of breath, nausea, vomiting , fever, palpitations, abdominal pain, diarrhea, constipation. Cough is improved. OBJECTIVE: VITAL SIGNS: Blood pressure 148/80, heart rate 72, temperature 99.7, respiration rate 19, pulse oximetry 95% on room air. INTAKE AND OUTPUT: Last 24 hours 770 and 1150. Negative 380. Weight 79.6, but yesterday was 83.2 kg. Question accuracy. GENERAL: Patient is sitting in chair eating breakfast, comfortable, no acute psychiatric or respiratory distress. Family at bed side. Alert, awake, oriented times three. Pale appearing. HEENT: Normocephalic, atraumatic. Moist oral mucosa. Dentures in place. No thrush or lesions appreciated. NECK: Supple. Trachea midline. Neck veins mildly distended. HEART: Distant sounding, regular with normal S1, S2. Unchanged systolic murmur in left second intercostal border. LUNGS: Diminished but clear bilaterally. No accessory muscle use. Breath sounds continue to be improving. No wheezing, rales or rhonchi. ABDOMEN: Soft, nontender, nondistended. Protuberant. Bowel sounds positive. No guarding. No rebound. EXTREMITIES: 1+ pitting edema bilateral lower extremity extending to pretibial region. GENITOURINARY (): Marie catheter is in place, unchanged pink tinged urine compared to yesterday. NEUROLOGIC: No focal deficits. PSYCHIATRIC: Normal affect. Pleasant. LABORATORY DATA: WBC 7.2, hemoglobin 8.2, hematocrit 25.7, mildly decreased from yesterday 8.3, platelets 144. Sodium 146, potassium 3.9, chloride 113, carbon dioxide 18, BUN 94, creatinine 4.32, glucose 2.1, albumin 2.6, phosphorous 5.5 improved from yesterday 6.3. SPUTUM: Yeastlike organism. IMPRESSION AND PLAN: Mr. Reardon is an 86-year-old male with complicated past medical history including diastolic congestive heart failure (CHF), chronic kidney disease, bladder malignancy, recurrent hydronephrosis, requiring stent placement, presented with acute kidney injury on chronic kidney disease secondary to congestive heart failure (CHF) decompensation and hydronephrosis. 1. Acute kidney injury superimposed on chronic kidney disease (CKD). Renal function shows slight improvement today compared to yesterday. Hopefully, this will continue to be improving each day now that he has ureteral stents in place. We will continue to monitor for now. 2. Anemia of chronic disease. Hemoglobin is decreased today compared to yesterday. Therefore, we will transfuse him one unit. Because of his history of congestive heart failure, have also ordered a one time dose of Lasix with transfusion. 3. Hydronephrosis, right side. He is status post stent placement on 2016. His personal urologist is currently following him, Dr. Hilario. 4. Decompensated diastolic heart failure. He will be receiving one dose of Lasix with blood transfusion. 5. Hypertension. Blood pressure is reasonable. We have discontinued minoxidil 2.5 mg daily. His blood pressure continues to be improving. 6. Metabolic acidosis secondary to renal disease. Improving each day. Will continue sodium bicarbonate 650 three times a day, this will likely improve with one time Lasix dose. 7. Community-acquired pneumonia. He is on day #6 of Rocephin. 8. Hyperkalemia, Resolved. 9. Hypophosphatemia. Will continue PhosLo. Phosphate level is improving each day. 10. Hypomagnesemia. Resolved. 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 Recommend monitoring his renal function for another day, if continues to be improving, he might be ready for discharge tomorrow. My preceptor for this patient encounter was Dr. Yunier Angelo. The preceptor was physically present in the building during the encounter and was fully available as needed. All aspects of the patient interview, examination, medical decision-making process, and medical care plan development were reviewed and approved by the preceptor. The preceptor is aware and concurs with the plan as stated in the body of this note and will attest to such by his/her co-signature. JOSH
[2017-01-14 20:00] VITALS: BP 164/110
[2017-01-14] MEDS: HYDROCORTISONE 5MG TABLET PO SCH (20:29)
[2017-01-14] MEDS: diphenhydrAMINE 25 MG CAP PO PRN (20:29)
[2017-01-14] MEDS: CALCITRIOL 0.25 MCG CAP (S0169) PO SCH (20:30)
[2017-01-15 06:00] VITALS: BP 144/68
[2017-01-15] MEDS: LEVOTHYROXINE 0.1 MG TAB (100 MCG) PO SCH (06:10)
[2017-01-15] MEDS: cefTRIAXone SOD 1 GM in D5W MINI-BAG PLUS 50 ML IV SCH (06:10)
[2017-01-15 06:27] LABS: BASO % 0.3 % (0.0-1.0); EOS # 0.4 K/mm3 (0.0-0.50); EOS % 5.9 % (0.0-3.0); LARGE UNSTAINED CELL # 0.2 K/mm3 (0.0-0.4); LARGE UNSTAINED CELL % 2.3 % (0.0-4.0); LYMPH # 0.8 K/mm3 (1.5-4.5); LYMPH % 8.7 % (24.0-44.0); MEAN CORPUSCULAR HEMOGLOBIN 30.1 pg (27.0-33.0); MEAN CORPUSCULAR HGB CONC 32.6 g/dl (32.0-36.5); MEAN CORPUSCULAR VOLUME 92.4 fl (80.0-96.0); MONO # 0.7 K/mm3 (0.0-0.8); MONO % 9.9 % (0.0-5.0); NEUTROPHILS # 5.5 K/mm3 (1.8-7.7); NEUTROPHILS % 72.9 % (36.0-66.0); PLATELET COUNT, AUTOMATED 160 k/mm3 (150-450); RED CELL DISTRIBUTION WIDTH 16.3 % (11.5-14.5); WHITE BLOOD COUNT 7.5 K/mm3 (4.0-10.0)
[2017-01-15 06:39] LABS: ALBUMIN 2.8 GM/DL (3.2-5.2); CALCIUM LEVEL 8.6 MG/DL (8.8-10.2); CREATININE FOR GFR 3.92 MG/DL (0.70-1.30); GLOMERULAR FILTRATION RATE 15.7 (>35); MAGNESIUM LEVEL 2.2 MG/DL (1.8-2.4); PHOSPHORUS LEVEL 5.7 MG/DL (2.5-4.9); POTASSIUM SERUM 3.9 MEQ/L (3.5-5.1)
[2017-01-15 06:53] VITALS: BP 144/68
[2017-01-15] MEDS: IPRATROPIUM 0.5MG/ALBUTEROL 2.5MG INH SOL UD 3ML (DUONEB)(J7620) NEB SCH (08:50)
[2017-01-15] MEDS: MULTIVITAMINS/MINERALS THERAP 1 TAB PO SCH (08:52)
[2017-01-15] MEDS: SODIUM BICARBONATE 325 MG TAB PO SCH (08:52)
[2017-01-15] MEDS: CALCIUM ACETATE 667 MG GELCAP PO SCH (08:52)
[2017-01-15 08:53] VITALS: BP 144/68
[2017-01-15] MEDS: LABETALOL 100 MG TAB PO SCH (08:53)
[2017-01-15] MEDS: FERROUS SULFATE 325MG TAB PO SCH (08:53)
[2017-01-15] MEDS: HYDROCORTISONE 10 MG TAB PO SCH (08:53)
[2017-01-15] MEDS: VITAMIN D 1,000 INTERNATIONAL UNITS TABLET PO SCH (08:53)
[2017-01-15] MEDS ORDERED: CEFD1CAP8 PO (10:53)
--- NOTE | 2017-01-15 12:25 | CR ---
DATE OF CONSULTATION: 01/14/2017 REASON FOR CONSULTATION: Hematuria and chronic renal insufficiency. 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 The patient actually is a known patient to us. He has a history of chronic congestive heart failure (CHF), chronic renal insufficiency stage IV, hypertension, Robb's disease, Jerald's, abdominal aortic aneurysm status post repair with iliac stents in 1999, anemia, left ureteral strictures, and recurrent left ureteral stent exchanges every three months. He was recently rediscovered two months ago that he had a urothelial carcinoma, high risk, none muscle invasive bladder cancer. For this reason, he was taken to the operating room for a restaging procedure and to actually see if this was muscle invasive or not. The patient had a TURBT, as mentioned above, and a left ureteroscopy with balloon ureteral dilatation of the ureteral stricture on the left side and left double JJ stent exchange was performed. The patient was admitted for 24 hours under CBI, which was then discontinued and the patient was discharged afterward in stable conditions. He was tolerating a regular diet at discharge. The Morales catheter was draining pink clear urine. No clots. He never had obstruction during the hospitalization time. The patient agreed on being discharged home with antibiotic and pain medication with a Morales catheter set to gravity and a followup in the clinic. Of note, the surgery was carried out on 01/06/2017, and the patient was discharged on 01/07/2017. The patient came back to the emergency department on the morning of 01/08/2017 due to shortness of breath and leg edema. He referred productive cough with clear sputum. He denied chest pain when he was admitted. He denied abdominal pain. No nausea. No vomiting. He did feel that his legs had swollen for the last few days. Of note, he had a thoracocentesis about 24 to 48 hours before the TURBT on 01/06/2017. For this reason, he was admitted and a CT scan of the abdomen and pelvis was ordered. The CT scan actually revealed that there was mild to moderate hydronephrosis on the right side. Normal stent positioning on the left side. Morales catheter in normal position with some blood clots in the bladder with the catheter draining hematuric urine, but not obstructed. Dr. Dennis, urologist rubber production machine operator, was consulted, and she decided to take the patient to the OR for a cystoscopy, possible fulguration of bleeders, and right double JJ stent due to the hydronephrosis detected on CT scan. The patient has a known history of having had bilateral stents bilaterally and an exchanged every three months after an aortic iliac bypass that he had back in 1999. However, during the follow ups, we took out the right double JJ stent, since it proved that this right kidney was not obstructed and had a functional hydronephrosis on Renal Scan with lasix test. A more recent renal scan with Lasix test actually proved that the right kidney was not obstructed at all and it's extra renal pelvis and mild hydronephrosis was functional and not mechanical. For this reason, we did not place the stent on that side, we only placed the stent on the left side. However, since the patient had a CT scan with hydronephrosis and some clots, Dr. Dennis profited from the cystoscopy to actually place a stent on the right side also. At that moment in time, when he arrived to the emergency department, his creatinine was 4.54. After taking the clots out, the patient had a Morales catheter placed. This was actually placed on 01/10/2017 after the cystoscopy with clot irrigation and right retrograde pyelogram and placement of right double JJ ureteral stent. The catheter for some reason was not draining so well. The patient had an ultrasound done that showed hydronephrosis and the catheter was not actually in a good position inside the bladder and was outside the bladder, possibly passing through one of the resection areas and being inflated outside the bladder in the posterior bladder wall. For this reason, the catheter was misplaced after the cystoscopy and the patient was in retention for a couple of hours. This was detected on ultrasound and on cystogram, which actually revealed extra peritoneal extravasation. For this reason, the catheter was placed back in a normal position and a CT scan was ordered to proof good positioning of the morales. The CT scan showed a catheter in good position. There was some extra peritoneal fluid and there were also some ascites in the abdomen. Dr. Dennis signed off to me, after finishing her call and on 01/12/2017, when we saw the patient. The patient is actually stable, eating a regular diet, ambulating very well, had a Morales catheter in good position draining without CBI, pink urine. The catheter was not obstructed at all. He did not have flank pain at all. Of note, we have to say that the creatinine levels have been, since after the TURBT, at 4.4 on 2016, on 01/10/2017 when he was admitted by the emergency room it was 4.5, on 01/10/2017 it was 3.8, and on 01/10/2017 again it was 4.0, on 01/11/2017 it was 4.43, on 01/12/2017 it was 4.68, on 01/13/2017 it was 4.58, and on 01/14/2017 it was 4.32. Even with bilateral stents now the creatinine has not decreased at all and for that reason we think that on top of his chronic renal insufficiency, the creatinine elevation is really due to a prerenal and renal condition associated with nephrotoxic medications, proving that his prior mild hydronephrosis is functional and not mechanical, since the stent on the right side did not improve the creatinine levels. The patient, on 01/14/2017, actually has a creatinine of 4.32. His BUN is 94. His abdomen is soft, nontender, nondistended. He is alert and oriented times three. He is ambulating and tolerating a regular diet. He is passing gas and having bowel movements. We have talked to the primary hospitalist team, as well as the modular home crew member on board. The plan will be the followin. Keep the Morales catheter for 3 weeks since it has had an extraperitoneal extravasation of urine with improving extraperitoneal bladder rupture, possibly due to Morales trauma from misplacement. 2. We will do a cystogram at 3 weeks prior to taking the catheter out to be sure that the bladder is totally intact. 3. The patient will need to receive, about 6 to 8 weeks after the TURBT, BCG therapy installation intravesical once a week for six weeks and also maintenance course of three week installation at 3 months, 6 months, 12 months, 18 months, 24 months, 30 months, and 36 months. 4. The patient will actually have to be assessed regarding if he needs the right double JJ stent since he has a mild to moderate hydronephrosis, which is functional and not mechanical. He has 80% function on the right kidney and 20% function on the left kidney also. We will need to continue exchanging the stent in the left kidney just to preserve some kidney function and help the patient with his chronic renal failure, even though the left kidney is poorly functional at this moment in time. We will follow the patient in around 1 to 2 weeks to continue his care. Once he is discharge, he should be discharged with a Morales catheter to gravity and antibiotic prophylaxis. Thank you very much for the consultation. JOSH
--- NOTE | 2017-01-16 03:38 | IPN ---
DATE: 01/15/2017 SUBJECTIVE: This is an 86-year-old male who was seen and examined at bedside. Yesterday, because of his anemia, he was given one unit of packed red blood cells and tolerated that well. His minoxidil was discontinued. He did receive a one-time dose of Lasix with transfusion. REVIEW OF SYSTEMS: This morning feels well. No shortness of breath, chest pain, palpitations, nausea, vomiting, diarrhea, constipation, fevers, chills, or headache. His cough is significantly less. His Marie still drains light pink urine. OBJECTIVE: VITAL SIGNS: Blood pressure 144/68, heart rate 66, temperature 97.8, respiration rate 20, pulse oximetry 95% on room air. INTAKE AND OUTPUT: Last 24 hours 1370 and 3750, net negative of 2.4 liters; in the last 12 hours already made 1.2 liters. Weight is 77.3 kg. GENERAL: Patient is sitting in bed, comfortable, in no acute distress, alert, awake, oriented times three, pleasant, cooperative, less pale appearing today compared to yesterday. HEENT: Normocephalic, atraumatic. Moist oral mucosa. Dentures in place. No thrush or lesions appreciated. NECK: Supple. Trachea midline. Neck veins not distended. HEART: Distant sounding, regular with normal S1,S2, systolic murmur in the left second intercostal border is unchanged. LUNGS: Diminished breath sounds but clear bilaterally. No accessory muscle use. No wheezing, rales, or rhonchi. ABDOMEN: Soft, nontender, nondistended, protuberant. No guarding, no rebound. EXTREMITIES: 1+ pitting edema bilateral lower extremity. Pedal pulses present bilaterally. GENITOURINARY: Marie in place with unchanged pink-colored urine. NEUROLOGIC: No focal deficits. PSYCHIATRIC: Normal affect. LABORATORY DATA: WBC 7.5, hemoglobin 9.6, hematocrit 29.4, increased from yesterday 8.2, platelets 160. Sodium 147, mildly increased from yesterday, potassium 3.9, chloride 112, carbon dioxide 21, BUN 89, creatinine 3.92, improved from yesterday 4.32, glucose 120, magnesium 2.2, albumin 2.8. IMPRESSION AND PLAN: Mr. Reardon is a pleasant 86-year-old male with complicated past medical history including diastolic heart failure, chronic kidney disease (CKD), bladder malignancy, recurrent hydronephrosis, presented with shortness of breath felt to have decompensated congestive heart failure (CHF) and right-sided hydronephrosis, underwent stent placement; however, this was complicated with bladder perforation. 1. Acute kidney injury superimposed on chronic kidney disease (CKD). Renal function continues to be improving each day. Will monitor for now. 2. Anemia of chronic disease. Hemoglobin is improved yesterday compared to yesterday. Since admission, he has received a total of three units of blood transfusion. He did receive a one-time dose of Lasix yesterday with transfusion and diuresed well with this dose. 3. Right-sided hydronephrosis. He is status post stent placement. It appears that his renal function is improved after stent was placed. 4. Decompensated diastolic heart failure. Currently is compensated. He only required a one-time dose of Lasix yesterday with transfusion and diuresed well. It is likely that his shortness of breath was due to urinary retention from his hydronephrosis rather than CHF when he initially presented outpatient. Therefore, we will hold off on continuing diuresis with Lasix at this time. He can continue with amiloride, but recommend decreasing from 10 mg twice a day to 5 mg twice a day. He will be seen outpatient in Dr. Angelo's office next week and decision to restart diuretic will be made at that time. 5. Hypertension. Blood pressure is reasonable. Recommend holding minoxidil and Lasix at discharge. He can continue with amiloride at 5 mg by mouth twice a day. 6. Metabolic acidosis secondary to renal disease. Resolved. Continue sodium bicarbonate 650 three times a day. 7. Community-acquired pneumonia. Continue antibiotics per primary team. 8. Hyperkalemia, resolved. 9. Hypophosphatemia. Resolved. 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 From a renal standpoint, the patient is amenable to being discharged whenever agreeable by primary team. My preceptor for this patient encounter was Dr. Yunier Angelo. The preceptor was physically present in the building during the encounter and was fully available as needed. All aspects of the patient interview, examination, medical decision making process, and medical care plan development were reviewed and approved by the preceptor. The preceptor is aware and concurs with the plan as stated in the body of this note and will attest to such by his co-signature. JOSH
--- NOTE | 2017-01-16 20:24 | DSES ---
DATE OF ADMISSION: 01/08/2017 DATE OF DISCHARGE: 01/15/2017 UROLOGIST: An Perry. FLOOR PERSON: Dr. Angelo. FINAL DIAGNOSES: 1. Right-sided hydronephrosis, new versus chronic. 2. Left-sided ureteral stricture. 3. Urinary bladder perforation. 4. Acute systolic congestive heart failure with lower extremity edema. 5. Acute blood loss anemia secondary to hematuria. 6. Urothelial carcinoma. 7. Acute and chronic renal insufficiency. 8. History of mitral and aortic valve regurgitation. 9. Pulmonary hypertension. 10. Chronic anemia. 11. Hypertension. 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 13. History of Jerald's thyroiditis with hypothyroidism. 14. Abdominal aortic aneurysm. HISTORY OF PRESENT ILLNESS: This is an 86-year-old male patient with underlying medical history of urothelial carcinoma, bladder cancer, hypertension, congestive heart failure (CHF), ejection fraction 55%, hypertension, chronic kidney disease (CKD) stage IV, Robb's disease, Jerald thyroiditis, abdominal aortic aneurysm status post repair in 1999, anemia, ureteral strictures, recent left ureteral stent change two days prior to admission. Patient was sent in by the patient's cloth tester for worsening shortness of breath and fluid overload. Admits to cough productive of clear sputum. Patient denies any chest pain, pressure or discomfort. Report of bilateral lower extremity swelling. HOSPITAL COURSE: Patient was admitted to the hospital. Urology was consulted for evaluation of right-sided hydronephrosis status post left stent placement and cystoscopy during this hospital stay. Patient also had acute on chronic renal failure. Nephrology was also consulted. Diuretics had been held, Patient's kidney function was monitored. Physical therapy was ordered. The patient was found to have a possible urinary bladder perforation with hematuria. Urology had evaluated patient and believes that patient's condition to be relatively stable and no additional surgical intervention is necessary in this admission. CT of the abdomen and retrograde pyelogram was done and evaluated. Patient's kidney function and electrolytes were monitored. Antibiotics were given. Strict intake and output (I and O), daily weights. Patient was transfused for acute blood loss anemia secondary to hematuria. Hemoglobin responded appropriately. Pathology was appreciated from the cystoscopy and removal of tumor, showed to have urothelial carcinoma, invasive stromal and lamina. Patient's home medication for blood pressure has been adjusted. Minoxidil has been discontinued. Lasix has been on hold. Aspirin has been on hold for hematuria. Deep venous thrombosis (DVT) prophylaxis provided with sequential compression device. Patient's home medication for hydrocortisone and Synthroid were continued. Patient currently tolerating oral, back to baseline, in no acute distress, ready for discharge for further care as outpatient. Case discussed with Dr. Hilario. Recommending follow up in two weeks with cystoscopy. Continue antibiotics until evaluated in two weeks. Continue Marie. Case also discussed with cloth tester, Dr. Angelo, who will follow up with the patient next week to assess if restarting Lasix is necessary. In the meantime, recommending daily weight. VITAL SIGNS: Temperature 97.8, pulse 66, respirations 20, blood pressure 144/68, pulse oximetry 95% on room air. LABORATORY: WBC 7.5, hemoglobin and hematocrit (H and H) 9.6/29.4, platelets 160. Chemistry: Sodium 147, potassium 3.9, chloride 112, bicarbonate 21, BUN 89, creatinine 3.92. DISCHARGE MEDICATIONS: - Ceftin ER 200 mg by mouth daily, 20 capsules prescribed. - amiloride 10 mg by mouth twice a day - calcitriol 0.75 mcg by mouth daily - PhosLo 1334 mg by mouth three times a day - erythropoietin as per cloth tester - ferrous sulfate 325 mg by mouth twice a day - hydrocortisone 10 mg by mouth every morning and 5 mg by mouth nightly - labetalol 100 mg by mouth twice a day - levothyroxine 100 mcg by mouth daily - multivitamin 1 tablet by mouth daily - sodium bicarbonate 650 mg by mouth three times a day - vitamin D 1000 units by mouth twice a day DISCHARGE INSTRUCTIONS: Patient is instructed to follow up with cloth tester in one week. Monitor blood pressure. Daily weight. Follow up with urologist, Dr. Hilario, in two weeks for cystoscopy. Continue antibiotics in the meantime. Return to hospital if symptoms worsen.
== END 2017-01-15 13:21 | disposition home health service (06) | DRG 987 ==
LOC: M ED 16:50 → M ED INP 20:30 → M PCU 01-09 15:50 → M MSPAV 01-11 14:03
PROVIDERS: ADMIT Internal Medicine; ATTEND Hospitalist
PROC: 30233N1 Transfusion of Nonautologous Red Blood Cells into Peripheral Vein, Percutaneous Approach (ICD-10-PCS; 2017-01-10)
PROC: 0T5B8ZZ Destruction of Bladder, Via Natural or Artificial Opening Endoscopic (ICD-10-PCS; principal; 2017-01-10 10:00)
DX: I13.0 Hypertensive heart and chronic kidney disease with heart failure and stage 1 through stage 4 chronic kidney disease, or unspecified chronic kidney disease (principal); I50.21 Acute systolic (congestive) heart failure; J18.9 Pneumonia, unspecified organism; N13.1 Hydronephrosis with ureteral stricture, not elsewhere classified; E27.1 Primary adrenocortical insufficiency; N18.4 Chronic kidney disease, stage 4 (severe); J90 Pleural effusion, not elsewhere classified; D62 Acute posthemorrhagic anemia; N17.9 Acute kidney failure, unspecified; E03.9 Hypothyroidism, unspecified; I71.4 Abdominal aortic aneurysm, without rupture; I34.0 Nonrheumatic mitral (valve) insufficiency; I35.0 Nonrheumatic aortic (valve) stenosis; C67.9 Malignant neoplasm of bladder, unspecified; Z91.040 Latex allergy status; Z91.048 Other nonmedicinal substance allergy status; Z79.899 Other long term (current) drug therapy; Z79.82 Long term (current) use of aspirin; R31.0 Gross hematuria; F17.200 Nicotine dependence, unspecified, uncomplicated; E87.5 Hyperkalemia; E83.42 Hypomagnesemia; E83.39 Other disorders of phosphorus metabolism; R68.0 Hypothermia, not associated with low environmental temperature; T83.091A Other mechanical complication of indwelling urethral catheter, initial encounter

== ENCOUNTER → 2017-01-29 | Outpatient (CLI) | payer MEDICARE, OTHER ==
[~2017-01-29] MED LIST changes: +ASPI1TAB PO; +CEFD1CAP8 PO; +CEPH250T PO; +CYSTO-CONRAY II 17.2% 250ML VIAL (Q9958) As Ordered ONE; +LEVO100T54 PO; +MINO10TAB PO; -PHOS667C PO; +PHOS667C5 PO; -ceFAZolin 2 GM/D5W 50 ML IV BAG (J0690) ONE
--- NOTE | 2017-01-29 14:19 | REP ---
CYSTOGRAM: 01/29/2017. Comparison CT abdomen pelvis 01/11/2017, cystogram 01/11/2017. Clinical history: Hydronephrosis with ureteral strictures. Patient with extravasation 3 weeks ago. Today's examination also shows a Marie catheter balloon inflated and the bladder. Retrograde infusion of 250 mL of Cysto-Conray II was performed. Series and oblique anterior images were obtained. There is no evidence of extravasation on today's study. The bladder is well distended however, there was reflux bilaterally in the ureters along the stents to the renal pelvis on the right with stage III hydronephrosis but only reached to the mid left ureter at about the level of the L4-5 disc space. Both sides have double pigtail stents coiled in the renal pelvis proximally and in the bladder distally. Surgical clips along the paraspinal region on the left with extensive atherosclerotic calcifications aorta and iliac vessels and bilateral iliac artery aneurysms stable. Advanced degenerative disc changes lumbar and lower thoracic spine and some hip arthritis. Two clips over the anterior aspect projecting over the left femoral head. The Marie catheter was opened an all contrast emptied from the bladder and decompressed. The ureters are with moderate distension remaining of the renal pelvis and calyces of the right collecting system. Technologist notes that there was blood in the bladder contrast drainage. Impression: 1. Bladder filled to 250 mL with bilateral reflux along the ureteral stents as described above. There is no extravasation from the bladder today. 2. Bilateral double pigtail stents coiled proximally in the renal pelvis and distally in the bladder with stage III hydronephrosis on the right and contrast reaching the collecting system of the left kidney and on the postvoid image but both ureters fully drained and the bladder emptied. Signed by Yousif Penn MD 01/29/2017 08:12 P
== END | disposition home or self-care (01) ==
LOC: M RADPRO 12:19
PROVIDERS: ATTEND Urology
DX: N13.30 Unspecified hydronephrosis (principal); Z96.89 Presence of other specified functional implants
CPT/HCPCS: 74430; Q9958

== ENCOUNTER → 2017-02-12 | Outpatient (REF) | payer MEDICARE, OTHER ==
[~2017-02-12] MED LIST changes: -CYSTO-CONRAY II 17.2% 250ML VIAL (Q9958) As Ordered ONE
== END ==
LOC: M LAB REF 09:48
PROVIDERS: ATTEND Internal Medicine Nephrology
DX: D50.9 Iron deficiency anemia, unspecified (principal)

== ENCOUNTER 2017-03-18 10:42 | Observation (INO) | payer MEDICARE, OTHER ==
[~2017-03-18] VITALS: Ht 177.8 cm; Wt 78.8 kg
[2017-03-18] MEDS: HYDROCORTISONE 5MG TABLET PO SCH (09:00)
[2017-03-18] MEDS: ASPIRIN 81 MG ENTERIC TAB PO SCH (09:00)
[~2017-03-18 10:42] MED LIST changes: +ASPI81TA63 PO; +CALC500T21 PO; +FURO40TA2 PO; +MULTTAB22 PO; +VITA-112 PO
[2017-03-18] MEDS ORDERED: VITMTA PO (12:17)
[2017-03-18] MEDS ORDERED: HYDR5TAB59 PO ×2 (12:17)
[2017-03-18] MEDS ORDERED: ASPI81TA7 PO (12:17)
[2017-03-18 12:29] LABS: INR 1.11
[2017-03-18 12:42] LABS: BASO % 0.6 % (0.0-1.0); EOS # 0.2 K/mm3 (0.0-0.50); EOS % 2.9 % (0.0-3.0); LARGE UNSTAINED CELL # 0.2 K/mm3 (0.0-0.4); LARGE UNSTAINED CELL % 2.8 % (0.0-4.0); LYMPH # 0.9 K/mm3 (1.5-4.5); LYMPH % 9.8 % (24.0-44.0); MEAN CORPUSCULAR HEMOGLOBIN 30.9 pg (27.0-33.0); MEAN CORPUSCULAR HGB CONC 31.8 g/dl (32.0-36.5); MEAN CORPUSCULAR VOLUME 97.3 fl (80.0-96.0); MONO # 0.6 K/mm3 (0.0-0.8); MONO % 8.6 % (0.0-5.0); NEUTROPHILS # 5.1 K/mm3 (1.8-7.7); NEUTROPHILS % 75.2 % (36.0-66.0); PLATELET COUNT, AUTOMATED 194 k/mm3 (150-450); RED CELL DISTRIBUTION WIDTH 16.5 % (11.5-14.5); WHITE BLOOD COUNT 6.8 K/mm3 (4.0-10.0)
[2017-03-18 12:46] LABS: ALBUMIN 2.8 GM/DL (3.2-5.2); ALBUMIN/GLOBULIN RATIO 0.78 (1.00-1.93); BILIRUBIN,DIRECT 0.1 MG/DL (0.0-0.2); BILIRUBIN,TOTAL 0.4 MG/DL (0.2-1.0); CALCIUM LEVEL 7.9 MG/DL (8.8-10.2); CREATININE FOR GFR 3.75 MG/DL (0.70-1.30); GLOMERULAR FILTRATION RATE 16.5 (>35); POTASSIUM SERUM 4.2 MEQ/L (3.5-5.1); TOTAL PROTEIN 6.4 GM/DL (6.4-8.2)
[2017-03-18] MEDS ORDERED: ACETAMINOPHEN TAB 650MG DOSE (2X325MG) PO PRN (13:30)
[2017-03-18] MEDS ORDERED: ONDANSETRON 4MG/2ML VIAL (J2405) IV PRN (13:30)
[2017-03-18] MEDS: SODIUM BICARBONATE 325 MG TAB PO SCH ×2 (16:00→20:21)
[2017-03-18 16:01] VITALS: BP 185/76
[2017-03-18] MEDS ORDERED: FUROSEMIDE 100 MG/10 ML VIAL (J1940) IV ONE (16:15)
[2017-03-18 16:45] VITALS: BP 130/72
--- NOTE | 2017-03-18 17:00 | HPE ---
DATE OF ADMISSION: 03/18/2017 PRIMARY CARE PROVIDER: Poultry Hatchery Man, Dr. Angelo. Urologist, Dr. Hilario. CHIEF COMPLAINT: Patient sent to the emergency room for abnormal labs. PAST MEDICAL HISTORY: Bladder cancer with recurrence. Persistent hematuria since December 2016. Restaging transurethral resection of bladder tumor in December 2016. Left-sided chronic ureteral stricture with double J stent present from 2011, gets regularly changed. Last change was on 01/06/2017. New right-sided possibly ureteral obstruction with new right-sided stent placed on 01/10/2017. Possible functional right-sided hydronephrosis. Systolic and diastolic congestive heart failure. Mitral and aortic regurgitation. Chronic kidney disease, stage IV. Pulmonary hypertension and right heart failure. Chronic anemia. Hypertension. Munday's disease. Jerald's disease. History of abdominal aortic aneurysm, status post aortobifemoral graft. Chronic bilateral iliac artery aneurysms. HISTORY OF THE PRESENT ILLNESS: This is an 86-year-old male who originally was diagnosed with bladder cancer in 2011, had transurethral resection of bladder tumor done. The patient had recurrence of bladder cancer diagnosed in December of 2016, had restaging transurethral resection of bladder tumor and the patient was following with Dr. Hilario with a plan to administer BCG. However, the patient's recent transurethral resection of bladder tumor in December was complicated. The patient had a routine left-sided stent change during that time. However, a Marie was placed during that hospitalization and that Marie had perforated the bladder and had gone into the intraperitoneal space and then there was a new right-sided hydronephrosis, so a new stent was placed. The Marie was kept in place for about 3 weeks and then a repeat cystogram showed that there was no further extravasation, so the Marie was discontinued. However, the patient continued to have hematuria, initially off and on but now at present on a daily basis. The patient has been planned to get a stent change next week and had gone for preoperative labs done. Preoperative labs showed a hemoglobin of 6.4, so he was sent to the emergency room for these abnormal labs. The patient complained of some dizziness, lightheadedness and shortness of breath going on for weeks. The patient denied any abdominal pain, denied any chest pain, denied any diarrhea, nausea or vomiting. Denied any fever or chills. The patient says that he has hematuria every time he goes to the bathroom and no cause has been told yet, though he does not pass any clots and does not have any trouble voiding. At present, the patient is being admitted to the hospitalist service for symptomatic anemia. The patient has been ordered two units of blood transfusion. PAST SURGICAL HISTORY: Cholecystectomy. Abdominal aortic aneurysm repair with aortobifemoral graft in December 1999. Ureteric stent placement in 2011 and repeated change in the left. Transurethral resection of bladder tumor in 2011 and again in December 2016. Right double J stent placement in December 2016. ALLERGIES: LATEX AND TAPE. HOME MEDICATIONS: - aspirin 81 mg daily - calcitriol 0.5 mcg at bedtime - PhosLo 1334 mg with meals - cholecalciferol 1000 units by mouth twice a day - Procrit 10,000 units once a month - ferrous sulfate 325 mg by mouth twice a day - Lasix 40 mg daily - hydrocortisone 10 mg in the morning and 5 mg at bedtime - labetalol 100 mg by mouth twice a day - Synthroid 100 mcg by mouth daily - multivitamin one tablet daily - sodium bicarbonate 650 mg by mouth three times a day FAMILY HISTORY: Nothing significant. SOCIAL HISTORY: Does not drink, does not abuse alcohol or recreational drugs. REVIEW OF SYSTEMS: All 10-point review of systems are negative except those mentioned in the history of the present illness. PHYSICAL EXAMINATION: VITAL SIGNS: Blood pressure 153/68, pulse 76, respiratory rate 18, pulse oximetry 97% in room air, temperature 99.7. GENERAL: Patient awake, alert, oriented times three, lying down in bed in no acute distress. HEENT: Normocephalic, atraumatic. Moist mucous membranes. Anicteric eyes. Pale mucosa. CHEST: Clear to auscultation. CARDIOVASCULAR: S1, S2 regular. There is a systolic murmur present. No rub or gallop. ABDOMEN: Soft, nontender. Bowel sounds present. EXTREMITIES: 2+ pedal edema. LABORATORY DATA: WBC 6.8, hemoglobin 6.4, platelets 194. Sodium 141, potassium 4.2, chloride 109, bicarbonate 21, BUN 84, creatinine 3.7, glucose 126, calcium 7.9. Liver enzymes are normal. Alkaline phosphatase 265. BNP 2570. Albumin 2.8. ASSESSMENT AND PLAN: This is an 86-year-old male admitted for symptomatic anemia. Plan: For symptomatic anemia, will give 2 units of blood transfusion. Will recheck hemoglobin. If hemoglobin and hematocrit is still below 9, will give another unit of blood transfusion, will give Lasix in between 2 units. Persistent symptomatic anemia due to persistent hematuria for the past 3 months. Persistent hematuria. Cause not yet clear from urological services. The patient does have recurrence of bladder cancer and had undergone restaging transurethral resection of bladder tumor in December, as well as has bilateral double J ureteral stents. Will try to get in touch with urology to see if there is anything to be done about the hematuria acutely. The patient is planned for stent change next week. Hypertension. Will continue with labetalol. Chronic kidney disease, stage IV. Creatinine is at baseline. Will continue to monitor. Will continue with PhosLo, sodium bicarbonate. The patient also gets Epogen as an outpatient. 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 Jerald's thyroiditis and hypothyroidism. Will continue with Synthroid. Systolic and diastolic congestive failure. At present, patient close to euvolemic; however, as the patient will be getting multiple blood transfusions, will give Lasix in between. After that, will resume patient's home Lasix of 40 mg. Pulmonary hypertension and right heart failure. Will continue with diuresis as required. Deep vein thrombosis (DVT) prophylaxis. Thromboembolism deterrents (TEDs) and stockings. Bladder cancer with recurrence. Followup as per urology.
[2017-03-18] MEDS: CALCIUM ACETATE 667 MG GELCAP PO SCH (17:26)
[2017-03-18] MEDS: VITAMIN D 1,000 INTERNATIONAL UNITS TABLET PO SCH (20:21)
[2017-03-18] MEDS ORDERED: CALCITRIOL 0.25 MCG CAP (S0169) PO SCH (21:00)
[2017-03-18] MEDS ORDERED: HYDROCORTISONE 5MG TABLET PO SCH (21:00)
[2017-03-18 22:00] VITALS: BP 136/84
[2017-03-19 01:58] VITALS: BP 157/71
[2017-03-19] MEDS ORDERED: FUROSEMIDE 100 MG/10 ML VIAL (J1940) IV ONE (05:00)
[2017-03-19 05:21] VITALS: BP 140/88
[2017-03-19 06:00] VITALS: BP 140/88
[2017-03-19 07:08] LABS: MEAN CORPUSCULAR HEMOGLOBIN 30.7 pg (27.0-33.0); MEAN CORPUSCULAR HGB CONC 31.8 g/dl (32.0-36.5); MEAN CORPUSCULAR VOLUME 96.5 fl (80.0-96.0); RED CELL DISTRIBUTION WIDTH 15.9 % (11.5-14.5); WHITE BLOOD COUNT 8.5 K/mm3 (4.0-10.0)
[2017-03-19 07:20] LABS: CALCIUM LEVEL 7.3 MG/DL (8.8-10.2); CREATININE FOR GFR 3.81 MG/DL (0.70-1.30); GLOMERULAR FILTRATION RATE 16.2 (>35); POTASSIUM SERUM 4.2 MEQ/L (3.5-5.1)
[2017-03-19] MEDS: CALCIUM ACETATE 667 MG GELCAP PO SCH ×2 (08:26→12:50)
[2017-03-19] MEDS: VITAMIN D 1,000 INTERNATIONAL UNITS TABLET PO SCH (08:26)
[2017-03-19] MEDS: SODIUM BICARBONATE 325 MG TAB PO SCH (08:26)
[2017-03-19] MEDS: HYDROCORTISONE 5MG TABLET PO SCH (08:26)
[2017-03-19 09:00] VITALS: BP 140/62
[2017-03-19] MEDS ORDERED: LEVOTHYROXINE 0.1 MG TAB (100 MCG) PO SCH (09:00)
[2017-03-19 14:00] VITALS: BP 162/80
--- NOTE | 2017-03-19 15:10 | DS.PDOC ---
Discharge Summary General Date of Admission March 18, 2017 at 13:27 Date of Discharge 03/19/17 Discharge Summary PROCEDURES PERFORMED DURING STAY: None. ADMITTING DIAGNOSES: 1. . Hematuria 2. . History of bladder cancer 3. . Stage IV chronic kidney disease DISCHARGE DIAGNOSES: 1. . Hematuria 2. . History of bladder cancer 3. . Stage IV chronic kidney disease COMPLICATIONS/CHIEF COMPLAINT: Hematuria,Sympotomatic Anemia. HISTORY OF PRESENT ILLNESS: . 86-year-old male with PMH of urothelial carcinoma, bladder cancer, hypertension , congestive heart failure (CHF), ejection fraction 55%, hypertension, chronic kidney disease (CKD) stage IV, Robb's disease, Jerald thyroiditis, abdominal aortic aneurysm status post repair in 1999, anemia, ureteral strictures, with B/L stents presented to the ER with a chief complaint of hematuria. The patient states that he has been having intermittent hematuria since bladder tumor resection in December. However, over the last few days he notes that the hematuria has been persistent. The patient follows with Dr. Hilario of urology as an outpatient and was actually scheduled to have a stent change next week. However, preoperative lab work showed that his hemoglobin was 6.4. The patient was admitted to the hospital service for blood transfusion and observation. During the patient's hospitalization, he was transfused 3 units of packed red blood cells. During this time, the patient has remained hemodynamically stable, and his hemoglobin count has trended up appropriately to 9.8 this afternoon. Urology was contacted by my colleague Dr. Estrella, who stated that the patient can follow-up with urology next week as an outpatient for stent changing. At this time, the patient states that he is feeling well and is eager to return home. He has cleared physical therapy. I've advised the patient to follow-up with urology as an outpatient next week for further evaluation and management. DISCHARGE MEDICATIONS: Please see below. ALLERGIES: Please see below. PHYSICAL EXAMINATION ON DISCHARGE: VITAL SIGNS: Please see below. GENERAL: Awake, alert, oriented, in no acute distress HEENT: Normocephalic, atraumatic NECK: No JVD CARDIOVASCULAR EXAMINATION: Normal rate, normal S1, normal S2 RESPIRATORY EXAMINATION: Clear to auscultation bilaterally ABDOMINAL EXAMINATION: Soft, nontender, nondistended EXTREMITIES: No erythema, no tenderness, no swelling LABORATORY DATA: Please see below. PROGNOSIS: Medically stable at this time, long-term prognosis poor ACTIVITY: As tolerated. DIET: . 2 g low sodium diet DISCHARGE PLAN: DISPOSITION: . Home DISCHARGE INSTRUCTIONS: 1. . Follow-up with primary care within 1 week 2. . Follow-up with urology within 1 week for stent change, and further evaluation and management of hematuria 3. . Return to ER if symptoms return or persist DISCHARGE CONDITION: Stable. TIME SPENT ON DISCHARGE: Greater than 30 minutes. Vital Signs/I&Os Vital Signs Date Time Temp Pulse Resp B/P (MAP) Pulse Ox O2 Delivery O2 Flow Rate FiO2 03/19/17 14:00 98.0 63 18 162/80 (107) 97 Room Air I&O- Last 24 Hours up to 6 AM 03/19/17 06:00 Intake Total 1635 ml Output Total 2525 ml Balance -890 ml Laboratory Data Labs 24H Laboratory Tests 2 03/19/17 06:52: Anion Gap 10, Glomerular Filtration Rate 16.2L, Blood Urea Nitrogen 89H, Creatinine 3.81H, Sodium Level 140, Potassium Level 4.2, Chloride Level 111H, Carbon Dioxide Level 19L, Calcium Level 7.3L CBC/BMP Laboratory Tests 03/19/17 00:10 03/19/17 06:52 Red Blood Count 2.89 L, Mean Corpuscular Volume 96.5 H, Mean Corpuscular Hemoglobin 30.7, Mean Corpuscular Hemoglobin Concent 31.8 L, Red Cell Distribution Width 15.9 H, Calcium Level 7.3 L 03/19/17 13:03 Discharge Medications Scheduled Calcitriol (Rocaltrol) 0.25 Mcg Cap, 0.5 MCG PO QHS, (Reported) Calcium Acetate (Phoslo) 667 Mg Cap, 1,334 MG PO WM, (Reported) Cholecalciferol (Vitamin D-1000) 1,000 Unit Tab, 1,000 UNIT PO BID, (Reported) Epoetin [place] (Procrit) 10,000 Unit/Ml Inj, 10,000 UNIT SC QMONTH, (Reported) Ferrous Sulfate (Ferrous Sulfate) 325 Mg Tab, 325 MG PO BID, (Reported) Furosemide (Furosemide) 40 Mg Tab, 40 MG PO DAILY, (Reported) Hydrocortisone Base (Hydrocortisone) 5 Mg Tab, 10 MG PO QAM, (Reported) Hydrocortisone Base (Hydrocortisone) 5 Mg Tab, 5 MG PO QHS, (Reported) Labetalol HCl (Labetalol HCl) 100 Mg Tab, 100 MG PO BID, (Reported) Levothyroxine Sodium (Levoxyl) 100 Mcg Tab, 100 MCG PO DAILY, (Reported) Multivitamins *SMC STOCKED* (Thera M Plus *SMC STOCKED*) 1 Tab Tab, 1 TAB PO DAILY, (Reported) Sodium Bicarbonate (Sodium Bicarbonate) 325 Mg Tab, 650 MG PO TID, (Reported) Allergies Coded Allergies: Latex (Verified Allergy, Intermediate, SWELLING, 03/17/17) TAPE (Verified Allergy, Unknown, ADHESIVES, 03/17/17) DI MONTERO MD March 19, 2017 15:10
--- NOTE | 2017-03-19 19:24 | ECGEPIP ---
Stationary ECG Study [facility] [place] - ED Test Date: 2017-03-18 Pat Name: KARIS COOK Department: Room: - Gender: M Utility Operator: magnolia : [id number] Requested By: Ruchi De Anda Order Number: [id number] Reading MD: Balaji Johnson Measurements Intervals [place] Rate: 60 P: AK: 0 QRS: -13 QRSD: 128 T: -39 QT: 481 QTc: 482 Interpretive Statements SINUS RHYTHM MODERATE INTRAVENTRICULAR CONDUCTION DELAY NSTTW ABNORMALITIES PROLONGED QT INTERVAL SIMILAR TO 01/08/17 Electronically Signed On 03-19-2017 19:24:52 EDT by Balaji Johnson
[2017-03-23] MEDS ORDERED: TYLE650T35 PO (14:51)
[2017-03-23] MEDS ORDERED: KEFL250C6 PO (14:51)
== END 2017-03-19 15:06 | disposition home or self-care (01) ==
LOC: M ED 11:27 → M ED INP 13:27 → M MSPAV 15:59
PROVIDERS: ADMIT Internal Medicine Nephrology; ATTEND Internal Medicine
DX: R31.9 Hematuria, unspecified (principal); Z85.51 Personal history of malignant neoplasm of bladder; N18.4 Chronic kidney disease, stage 4 (severe); D64.9 Anemia, unspecified; I12.9 Hypertensive chronic kidney disease with stage 1 through stage 4 chronic kidney disease, or unspecified chronic kidney disease; I50.42 Chronic combined systolic (congestive) and diastolic (congestive) heart failure; Z79.899 Other long term (current) drug therapy; Z91.040 Latex allergy status; E06.3 Autoimmune thyroiditis; I27.89 Other specified pulmonary heart diseases
CPT/HCPCS: 36415; 36430; 80048; 80076; 83880; 85014; 85018; 85025; 85027; 85610; 86850; 86900; 86901; 86920; 93005; 93041; 94760; 96374; 96376; 97161; 99285; G0378; G8978; G8979; G8980; J1940; P9016

== ENCOUNTER → 2017-03-23 | Day surgery (SDC) | payer MEDICARE, OTHER ==
[~2017-03-23] VITALS: Ht 177.8 cm; Wt 78.0 kg
[~2017-03-23] MED LIST changes: +ASPI81TA7 PO; +CONRAY-60 60% 50ML VIAL (Q9961) As Ordered ONE; +LIDOCAINE 2% 5ML JELLY UROJET As Ordered ONE; +LIDOCAINE 2% INJ 100 MG/5 ML SDV (FOR ANES.) As Ordered ONE; +LR 1,000 ML IV ONE; +MIDAZOLAM INJ 2 MG/2 ML VIAL (J2250) As Ordered ONE; +ONDANSETRON 4MG/2ML VIAL (J2405) As Ordered ONE; +PROPOFOL 200 MG/20 ML VIAL As Ordered ONE; +fentaNYL 100 MCG/2 ML INJECTION (J3010) As Ordered ONE
--- NOTE | 2017-03-23 15:10 | REP ---
RETROGRADE PYELOGRAM: Six views. HISTORY: Left ureteral stricture with hydronephrosis. FINDINGS: 2 minutes 39 seconds of fluoroscopy time is reported. A sequence of six fluoroscopically obtained last image hold spot radiographs of the abdomen document bilateral ureteral cannulation, contrast injection, left ureteral stenting and bilateral hydronephrosis. No contrast extravasation is seen. Signed by Arley Elam MD 03/23/2017 05:08 P
[2017-03-23 15:35] VITALS: BP 155/67
--- NOTE | 2017-03-24 10:33 | RO ---
DATE OF PROCEDURE: 03/23/2017 PREOPERATIVE DIAGNOSIS: Bilateral hydronephrosis and history of bladder cancer. POSTOPERATIVE DIAGNOSIS: Bilateral hydronephrosis and history of bladder cancer. SURGERY PERFORMED: Cystoscopy, plus bilateral double J stent exchanges 6-Angolan [place] Cook. SURGEON: Frankie Hilario MD ELECTRIC DETECTOR OPERATOR: None. ANESTHESIA: General. COMPLICATIONS: None. ESTIMATED BLOOD LOSS: N/A. HISTORY OF PRESENT ILLNESS: 86-year-old male patient with high risk bladder cancer superficial <<0:37>> T1G3. The patient has bilateral hydronephrosis and double J stents. He is here today for a cystoscopy, exam under anesthesia and bilateral double J stent exchanges. PROCEDURE DESCRIPTION: In a patient under general anesthesia in supine modified low lithotomy position after prepping and draping the area of concern, which included the entire genitalia and abdomen, we started by introducing a 22-Angolan cystoscope under videoendoscopic guidance. There was a mild stricture that was passed by the cystoscope in the penile urethra. The bulbar urethra, membranous urethra and prostatic urethra were totally normal. The bladder had bilateral double J stents and they were calcified. There was scar tissue from prior bladder tumor resections. We grabbed the endoscopic forceps and pulled out the left double J stent. We then proceeded to actively put a Pollack catheter, 5-Angolan in the retrograde pyelogram. We could see a 4 cm in length ureteral stricture in the midline and left hydronephrosis. We then proceeded to pass a sensor guidewire up to the kidney and then introduced a 6-Angolan [place] Cook new double J stent up to the kidney. Once it was in good position, we took the sensor guidewire. We could see the curl in the kidney and the curl in the bladder. We then proceeded to grab endoscopic forceps and pull out the right double J stent. We introduced in a Pollack catheter, 5-Angolan to the right ureteral orifice and did a retrograde pyelogram. There was also right hydroureteronephrosis and a pencil tip ureteral stricture at the level crossing of the iliac. For this reason, was decided to exchange the stent on the right side also. We passed a sensor guidewire up to the kidney and introduced a right double J stent. Once the stent was in good position, withdrew the guidewire. We could see the curl in the kidney and a curl in the bladder. There were no bleeding vessels in the bladder. There was mild tea colored urine on the right side of the kidney. We then emptied the bladder and took the cystoscope out. PLAN: The patient will go with antibiotic, Keflex 250 mg twice a day and Tylenol for pain. He will followup at [facility] in 2-3 weeks.
== END | disposition home or self-care (01) ==
LOC: M SDC 10:30
PROVIDERS: ATTEND Urology
DX: N13.30 Unspecified hydronephrosis (principal); C67.9 Malignant neoplasm of bladder, unspecified; I11.9 Hypertensive heart disease without heart failure; E03.9 Hypothyroidism, unspecified; E27.1 Primary adrenocortical insufficiency; I71.4 Abdominal aortic aneurysm, without rupture; I50.9 Heart failure, unspecified; I73.9 Peripheral vascular disease, unspecified; E11.9 Type 2 diabetes mellitus without complications; K21.9 Gastro-esophageal reflux disease without esophagitis; D64.9 Anemia, unspecified; M12.9 Arthropathy, unspecified; N28.9 Disorder of kidney and ureter, unspecified; R31.9 Hematuria, unspecified; Z91.040 Latex allergy status; Z91.048 Other nonmedicinal substance allergy status; Z79.899 Other long term (current) drug therapy; Z79.82 Long term (current) use of aspirin; Z87.891 Personal history of nicotine dependence; Z96.1 Presence of intraocular lens
CPT/HCPCS: 52332; 74420; 85014; 85018; C1726; C2617; J0690; J2250; J2405; J3010; Q9961

== ENCOUNTER → 2017-04-16 | Outpatient (REF) | payer MEDICARE, OTHER ==
[~2017-04-16] MED LIST changes: +ASPI1TAB15 PO; +ASPI81CH32 PO; -ASPI81TA7 PO; -CONRAY-60 60% 50ML VIAL (Q9961) As Ordered ONE; +HYDR-3910 PO; -HYDR-4266 PO; +KEFL250C11 PO; -KEFL250C6 PO; +KEFL500C17 PO; -LIDOCAINE 2% 5ML JELLY UROJET As Ordered ONE; -LIDOCAINE 2% INJ 100 MG/5 ML SDV (FOR ANES.) As Ordered ONE; -LR 1,000 ML IV ONE; -MIDAZOLAM INJ 2 MG/2 ML VIAL (J2250) As Ordered ONE; +MINO10TA PO; -MINO10TAB PO; +MINO2.5T PO; -MINO25TA PO; -ONDANSETRON 4MG/2ML VIAL (J2405) As Ordered ONE; -PROPOFOL 200 MG/20 ML VIAL As Ordered ONE; -VITA100037 PO; +VITA100067 PO; -fentaNYL 100 MCG/2 ML INJECTION (J3010) As Ordered ONE
== END ==
LOC: M SMT 13:13
PROVIDERS: ATTEND Urology
DX: N13.1 Hydronephrosis with ureteral stricture, not elsewhere classified (principal)
CPT/HCPCS: 81001; 87086; G0463

== ENCOUNTER → 2017-06-02 | Outpatient (REF) | payer MEDICARE, OTHER ==
[2017-06-02 19:49] LABS: FERRITIN 71 NG/ML (26-388); PERCENT SATURATION 21.6 % (19.7-50.0); TOTAL IRON BINDING CAPACITY 218 UG/DL (250-450)
== END ==
LOC: M LAB REF 17:01
PROVIDERS: ATTEND Internal Medicine Nephrology
DX: I50.32 Chronic diastolic (congestive) heart failure (principal); E03.9 Hypothyroidism, unspecified; D50.9 Iron deficiency anemia, unspecified

== ENCOUNTER 2017-06-11 07:55 | Outpatient (CLI) | payer MEDICARE ==
[~2017-06-11] VITALS: Ht 177.8 cm; Wt 77.3 kg
[~2017-06-11 07:55] MED LIST changes: -ASPI81CH32 PO; -KEFL500C17 PO
[2017-06-11] MEDS ORDERED: IRON SUCROSE 25 MG in NS 50 ML IV ONE (09:00)
[2017-06-11] MEDS ORDERED: IRON SUCROSE 475 MG in NS 250 ML IV ONE (10:00)
[2017-06-15] MEDS ORDERED: ASPI81CH32 PO (09:57)
== END 2017-06-11 13:50 | disposition home or self-care (01) ==
LOC: M INFU 07:55
PROVIDERS: ATTEND Internal Medicine Nephrology
DX: D50.9 Iron deficiency anemia, unspecified (principal); Z91.040 Latex allergy status; Z79.899 Other long term (current) drug therapy; L23.1 Allergic contact dermatitis due to adhesives; Z88.8 Allergy status to other drugs, medicaments and biological substances
CPT/HCPCS: 96365; 96366; J1756

== ENCOUNTER → 2017-06-18 | Outpatient (REF) | payer MEDICARE ==
[~2017-06-18] MED LIST changes: +ASPI81CH32 PO; +KEFL500C17 PO
[2017-06-21 14:45] LABS: PERCENT SATURATION 21.3 % (19.7-50.0)
== END ==
LOC: M SMT 13:52
PROVIDERS: ATTEND Internal Medicine Nephrology
DX: D50.9 Iron deficiency anemia, unspecified (principal)

== ENCOUNTER 2017-06-22 10:03 | Outpatient (CLI) | payer MEDICARE, OTHER ==
[~2017-06-22 10:03] MED LIST changes: -KEFL500C17 PO
[2017-06-22 14:00] VITALS: BP 174/64
== END 2017-06-22 20:37 | disposition home or self-care (01) ==
LOC: M INFU 10:03 → M MSPAV 10:19 → M INFU 20:37
PROVIDERS: ATTEND Internal Medicine Nephrology
DX: N18.9 Chronic kidney disease, unspecified (principal); D63.1 Anemia in chronic kidney disease; Z79.899 Other long term (current) drug therapy; Z79.82 Long term (current) use of aspirin; Z91.040 Latex allergy status; Z88.8 Allergy status to other drugs, medicaments and biological substances
CPT/HCPCS: 36415; 36430; 86850; 86900; 86901; 86920; P9016

== ENCOUNTER 2017-06-29 05:57 | Day surgery (SDC) | payer MEDICARE, OTHER ==
--- NOTE | 2017-06-25 22:19 | HPE ---
DATE OF ADMISSION: 06/29/2017 HISTORY OF PRESENT ILLNESS: An 86-year-old male patient with a history of bladder cancer and a left atrophic kidney which has been managed by chronic stent exchange. Last stent exchange was March 23, 2017. He has a history of a left atrophic kidney and a left ureteral stricture that is managed with the chronic stent exchange. He has now also developed a right hydronephrosis with possible narrowing of the right ureter and, for this reason, a right double-J stent was placed and was not removed with last stent exchange. He has had hematuria on and off. CURRENT MEDICATIONS: - levothyroxine 100 mcg capsules one tablet every morning - aspirin 81 mg once a day - hydrocortisone 5 mg tablets, three tablets orally once a day - vitamin D 1000 units tablet daily. - iron one tablet daily - sodium bicarbonate 325 mg two tablets orally three times a day - Procrit 10,000 units per mL solution injected monthly - labetalol HCl 100 mg tablet orally - Lasix 40 mg half a tablet orally once a day - calcium acetate 667 mg tablet two tablets with meal once a day - calcitriol 0.25 mcg capsules two capsules orally twice a day - mens multivitamin with minerals PAST MEDICAL HISTORY 1. High blood pressure. 2. Chronic kidney disease for which she is followed by Dr. Angelo, 3. Toombs's disease. 4. Hypothyroidism. PAST SURGICAL HISTORY: 1. Gallbladder. 2. Abdominal aortic aneurysm (AAA) repair with a femoral artery graft in 1999. 3. Again he has chronic stent placement for the left ureteral stricture. 4. Bladder biopsy in November 2016. FAMILY HISTORY: Father , heart failure. Mother , colon cancer. SOCIAL HISTORY: Former smoker, been greater than 10 years since he is quit. No alcohol use. Caffeine one to two a day. Diet regular. ALLERGIES: LATEX - rash. REVIEW OF SYSTEMS: Constitutional: No concerns, no fatigue. No feeling weak. No fever. Urology: No blood in urine, no burning on urination. No difficulty urinating, no flank pain. EXTREMITIES: VITAL SIGNS: Weight is 168 pounds. Height 70 inches. Vital signs are stable. GENERAL APPEARANCE: Alert, oriented in no apparent distress. ABDOMEN: Normal, soft, nontender. No mass. HEENT: Unremarkable. HEART: Normal sinus rhythm without murmur. LUNGS: Clear to auscultate. NECK: Normal. SKIN: Normal. Extremities: No edema, clubbing or cyanosis. ASSESSMENT: 1. Hydronephrosis with ureteral stricture. 2. Bladder cancer. PLAN: He will be scheduled for cystoscopy plus bilateral retrograde pyelograms, plus bilateral exchange of double-J stents. He will have right ureteroscopy plus right ureteral biopsies done by Dr. Hilario.
[~2017-06-29] VITALS: Ht 177.8 cm; Wt 76.2 kg
[2017-06-29] MEDS ORDERED: LR 1,000 ML IV SCH ×3 (06:00→17:30)
[2017-06-29] MEDS ORDERED: CEPHALEXIN 500 MG CAP PO SCH (06:00)
[2017-06-29 06:48] LABS: INR 1.14
[2017-06-29] MEDS ORDERED: CONRAY-60 60% 50ML VIAL (Q9961) As Ordered ONE (07:18)
[2017-06-29] MEDS ORDERED: LIDOCAINE 2% 5ML JELLY UROJET As Ordered ONE (07:42)
[2017-06-29] MEDS ORDERED: MIDAZOLAM INJ 2 MG/2 ML VIAL (J2250) As Ordered ONE (07:51)
[2017-06-29] MEDS ORDERED: fentaNYL 100 MCG/2 ML INJECTION (J3010) As Ordered ONE (07:51)
[2017-06-29] MEDS ORDERED: PROPOFOL 200 MG/20 ML VIAL As Ordered ONE (07:51)
[2017-06-29] MEDS ORDERED: LIDOCAINE 2% INJ 100 MG/5 ML SDV (FOR ANES.) As Ordered ONE (07:51)
[2017-06-29] MEDS ORDERED: METOCLOPRAMIDE INJ 10MG/2ML VIAL (J2765) As Ordered ONE (07:51)
[2017-06-29] MEDS ORDERED: ePHEDrine SULFATE 25 MG/5 ML(5MG/ML) SYRINGE As Ordered ONE (08:29)
--- NOTE | 2017-06-29 09:26 | REP ---
Retrograde pyelogram: Two views. History: Bilateral hydronephrosis. 1 minute 13 seconds of fluoroscopy time is reported. Findings: A sequence of two last image hold fluoro spot radiographs of the abdomen document right ureteral guidewire manipulation, contrast injection, and left double pigtail ureteral stent. Signed by Arley Elam MD 06/29/2017 12:12 P
[2017-06-29] MEDS ORDERED: ONDANSETRON 4MG/2ML VIAL (J2405) IV PRN ×2 (09:45→17:30)
[2017-06-29] MEDS ORDERED: KEFL500C17 PO (10:23)
[2017-06-29] MEDS ORDERED: TYLE650T35 PO (10:23)
[2017-06-29] MEDS: ACETAMINOPHEN 650MG ER TAB (TYLENOL ARTHRITIS) PO SCH ×3 (14:00→22:22)
[2017-06-29] MEDS: CEPHALEXIN 250 MG CAP PO SCH ×2 (15:54→22:24)
[2017-06-29 17:15] VITALS: BP 151/81
[2017-06-29] MEDS: CALCIUM ACETATE 667 MG GELCAP PO SCH (18:00)
[2017-06-29] MEDS ORDERED: KEFL250C11 PO (18:54)
[2017-06-29] MEDS ORDERED: CALCITRIOL 0.25 MCG CAP (S0169) PO SCH (21:00)
[2017-06-29 22:00] VITALS: BP 164/83
[2017-06-29] MEDS: SODIUM BICARBONATE 325 MG TAB PO SCH (22:24)
[2017-06-29] MEDS: LABETALOL 100 MG TAB PO SCH (22:25)
[2017-06-29] MEDS: FERROUS SULFATE 325MG TAB PO SCH (22:26)
[2017-06-30] MEDS: CEPHALEXIN 250 MG CAP PO SCH (05:44)
[2017-06-30] MEDS: ACETAMINOPHEN 650MG ER TAB (TYLENOL ARTHRITIS) PO SCH (05:44)
[2017-06-30 06:00] VITALS: BP 150/72
[2017-06-30] MEDS ORDERED: LEVOTHYROXINE 100MCG TABLET (0.1MG) PO SCH (06:00)
[2017-06-30] MEDS ORDERED: FUROSEMIDE 40 MG TAB PO SCH (09:00)
[2017-06-30] MEDS: SODIUM BICARBONATE 325 MG TAB PO SCH (09:26)
[2017-06-30] MEDS: FERROUS SULFATE 325MG TAB PO SCH (09:26)
[2017-06-30 09:27] VITALS: BP 150/72
[2017-06-30] MEDS: LABETALOL 100 MG TAB PO SCH (09:27)
[2017-06-30] MEDS: CALCIUM ACETATE 667 MG GELCAP PO SCH (09:27)
--- NOTE | 2017-06-30 23:12 | RO ---
DATE OF PROCEDURE: 06/29/2017 PREOPERATIVE DIAGNOSES: Bilateral hydronephrosis and bladder cancer. POSTOPERATIVE DIAGNOSES: Bladder cancer, plus bilateral hydroureteronephrosis, plus bilateral ureteral strictures. SURGERY PERFORMED: Cystoscopy, plus by bilateral double J stent exchanges, plus right ureteroscopy, plus right ureteral biopsies, plus bipolar transurethral resection of bladder tumor (TURBT). SURGEON: Dr. Frankie Hilario SEQUINS STRINGER: None. ANESTHESIA: General. COMPLICATIONS: None. ESTIMATED BLOOD LOSS: N/A. HISTORY OF PRESENT ILLNESS: 86-year-old male patient with a history of bladder cancer and bilateral ureteral strictures. He has bilateral stents. He has consented for a cystoscopy, plus bilateral double J stent exchange, plus right ureteroscopy, plus right ureteral biopsies, possible TURBT. PROCEDURE DESCRIPTION: In a patient under general anesthesia in supine modified low lithotomy position, after prepping and draping the area of concern, which included the entire genitalia and abdomen, we started by introducing a #21-Stateless cystoscope and a 30-degree lens under videoendoscopic guidance. The fossa navicularis, penile urethra, bulbar urethra, and membranous urethra were totally normal. The prostate had lateral lobes touching. Small prostate. Both ureteral orifices were occupied by double J stents. We grabbed the left double J stent and pulled it out of the body of the patient. We then passed a guidewire up to the kidney and replaced it with a new #6-Stateless [place] Cook stent. We then proceeded to actually grab the right ureteral stent and pulled it out of the body of the patient and passed the guidewire up to the kidney. We then proceeded to pass a second double-lumen catheter up the distal ureter and did a retrograde pyelogram. We could evidence of a 1 cm ureteral stricture around the crossing of the iliac vessels on the right side. We then proceeded to actually load a second guidewire and loaded a ureteral access sheath up to the mid ureter. We then proceeded to actually pass a flexible ureteroscope through the ureteral access sheath up to the kidney. We did a formal nephroscopy upper pole, mid pole, and lower pole. Proximal ureter was totally normal. We found a stone. We grabbed it with a basket, #7-Stateless basket, and took it out of the body of the patient. Sent it for biochemical analysis. We then proceeded to actually do a retrograde ureteroscopy. By removing the ureteroscope and the ureteral access sheath, we could find an area of stricture. With an endoscopic Piranha biopsy forceps we grabbed two biopsies from this area of the stricture and then sent it for permanent pathology analysis. We then proceeded to remove the ureteroscope and the ureteral access sheath. There were no tumors present in the ureter. At that moment in time, we loaded a double J stent [place] Cook #6-Stateless up to the kidney and took the guidewire out. We could see the curl in the kidney and the curl in the bladder. We then proceeded to do a formal cystoscopy. We could see five tumors in the bladder, in the posterior bladder wall and the dome. At that moment in time, we grabbed the resectoscope and resected each bladder tumor out and fulgurated the resection base. We then took the Ellik evacuator and took all the tumors out of the bladder and sent them for permanent pathology analysis. We took the resectoscope and passed a #20-Stateless Marie catheter into the bladder and put it at irrigation. PLAN: The patient will stay same-day surgery. Once his urine returns clear, he will go home with a Marie catheter for 5 days. Followup at [facility] [place]. The plan for him is to actually change his stents every 3 months and TURBTs if the tumors recur. He does not want bacillus Calmette-Sharon (BCG) or mitomycin C. He does not want also cystectomy since he will not tolerate the surgery. There were no complications during surgery.
[2017-07-13 00:06] LABS: Size 4x3x3 mm (.)
== END 2017-06-30 10:40 | disposition home or self-care (01) ==
LOC: M SDC 05:57 → M MS5PR 16:25 → M SDC 06-30 10:40
PROVIDERS: ATTEND Urology
DX: C67.9 Malignant neoplasm of bladder, unspecified (principal); N13.1 Hydronephrosis with ureteral stricture, not elsewhere classified; I10 Essential (primary) hypertension; N28.9 Disorder of kidney and ureter, unspecified; E27.2 Addisonian crisis; E03.9 Hypothyroidism, unspecified; I73.9 Peripheral vascular disease, unspecified; E11.9 Type 2 diabetes mellitus without complications; K21.9 Gastro-esophageal reflux disease without esophagitis; D64.9 Anemia, unspecified; R06.02 Shortness of breath; M51.36 Other intervertebral disc degeneration, lumbar region; R31.9 Hematuria, unspecified; Z88.1 Allergy status to other antibiotic agents; Z91.040 Latex allergy status; Z91.048 Other nonmedicinal substance allergy status; Z79.899 Other long term (current) drug therapy; Z95.828 Presence of other vascular implants and grafts; Z79.52 Long term (current) use of systemic steroids; Z79.82 Long term (current) use of aspirin; Z96.1 Presence of intraocular lens
CPT/HCPCS: 36415; 52204; 52234; 52332; 74420; 82360; 85610; 88108; 88300; 88305; 88307; 88313; C1769; C2617; J0690; J2250; J2765; J3010; Q9961

== ENCOUNTER → 2017-08-03 | Outpatient (REF) | payer MEDICARE, OTHER ==
[~2017-08-03] MED LIST changes: +KEFL500C17 PO
== END ==
LOC: M SMT 12:46
PROVIDERS: ATTEND Nurse Practitioner Women's Health
DX: N13.1 Hydronephrosis with ureteral stricture, not elsewhere classified (principal)

== ENCOUNTER → 2017-08-13 | Outpatient (REF) | payer MEDICARE, OTHER | LOC: M LAB REF 17:08 | PROVIDERS: ATTEND Internal Medicine Nephrology | DX: I50.32 Chronic diastolic (congestive) heart failure (principal); E03.9 Hypothyroidism, unspecified ==

== ENCOUNTER → 2017-09-13 | Outpatient (CLI) | payer MEDICARE, OTHER ==
--- NOTE | 2017-09-13 12:05 | REP ---
ULTRASOUND ABDOMINAL AORTA: Real-time sonographic evaluation of abdominal aorta performed. Mild to moderate partially calcified plaque is seen in the abdomen aorta. Proximally, abdominal aorta is somewhat obscured by overlying bowel gas. Maximum AP diameter of the proximal abdominal aorta is 2.9 cm, at the level of the renal arteries 2.2 cm, mid aspect 2.5 cm, and distally just above the bifurcation 2.4 cm. Common iliac arteries are slightly ectatic, right measuring 1.3 x 1.4 cm and left 1.1 x 1.3 cm. There is no aneurysmal dilatation. Distal abdominal aorta demonstrates peak systolic velocity 28.9 cm/s with triphasic waveform, right common iliac artery 87.4 cm/s, triphasic, left common iliac artery 92.5 cm/s, triphasic. 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 Signed by Ryan Alcocer MD 09/13/2017 12:44 P
--- NOTE | 2017-09-13 12:11 | REP ---
BILATERAL LOWER EXTREMITY DUPLEX DOPPLER ARTERIAL ULTRASOUND: Real-time ultrasound evaluation and duplex Doppler interrogation of bilateral lower extremity arterial system is performed. Moderate calcified and partially calcified plaquing and narrowing is seen throughout both lower extremity arterial systems. Right external iliac artery demonstrates peak systolic velocity 250.7 cm/s with biphasic waveform with apparent significant stenosis. There also appears to be mild to moderate stenosis involving right common femoral and superficial femoral arteries, peak systolic velocity right common femoral artery 50.4 cm/s, biphasic waveform, peak systolic velocity of the right common femoral artery proximally 43.1 cm/s with triphasic waveform and distally 14.1 cm/s with biphasic waveform. Peak systolic velocity right popliteal artery 15.6 cm/s monophasic, anterior tibial artery distally 78.6 cm/s monophasic, posterior tibial artery proximally 31.1 cm/s monophasic. Left external iliac artery demonstrates peak systolic velocity 138.8 cm/s with biphasic waveform, common femoral artery 139.9 cm/s biphasic waveform. There is elevated peak systolic velocity of the mid aspect of the left superficial femoral artery at 145.4 cm/s, biphasic, suggesting stenosis. Left popliteal artery peak systolic velocity 20.8 cm/s biphasic, proximal left anterior tibial artery not visualized with distal peak systolic velocity 19 cm/s, biphasic. Left posterior tibial artery demonstrates peak systolic velocity proximally 143.4 cm/s, biphasic. Incidental note is made of a complex left popliteal cyst measuring 4.8 x 2.2 x 2.5 cm. Signed by Ryan Alcocer MD 09/13/2017 12:45 P
== END | disposition home or self-care (01) ==
LOC: M RAD 07:59
PROVIDERS: ATTEND Surgery Vascular Surgery
DX: I71.4 Abdominal aortic aneurysm, without rupture (principal); I73.9 Peripheral vascular disease, unspecified; M71.22 Synovial cyst of popliteal space [Baker], left knee

== ENCOUNTER 2017-10-13 09:23 | Day surgery (SDC) | payer MEDICARE, OTHER ==
[~2017-10-13] VITALS: Ht 170.2 cm; Wt 78.9 kg
[2017-10-13] MEDS ORDERED: LR 1,000 ML IV ONE (09:30)
[2017-10-13] MEDS ORDERED: ceFAZolin 2 GM/D5W 50 ML IV BAG (J0690 PER 500MG) As Ordered ONE (09:41)
[2017-10-13] MEDS ORDERED: PROPOFOL 200 MG/20 ML VIAL As Ordered ONE ×2 (11:52→13:11)
[2017-10-13] MEDS ORDERED: fentaNYL 100 MCG/2 ML INJECTION (J3010) As Ordered ONE (11:52)
[2017-10-13] MEDS ORDERED: CONRAY-60 60% 50ML VIAL (Q9961) As Ordered ONE (12:33)
[2017-10-13] MEDS ORDERED: KEFL250C11 PO (13:47)
[2017-10-13] MEDS ORDERED: LR 1,000 ML IV SCH (14:00)
[2017-10-13] MEDS ORDERED: fentaNYL 100 MCG/2 ML INJECTION (J3010) IV PRN (14:00)
[2017-10-13] MEDS ORDERED: ACETAMINOPHEN 650MG ER TAB (TYLENOL ARTHRITIS) PO PRN (14:00)
[2017-10-13] MEDS ORDERED: ONDANSETRON 4MG/2ML VIAL (J2405) IV PRN (14:00)
--- NOTE | 2017-10-13 14:34 | RO ---
DATE OF SURGERY: 10/13/2017 PREOPERATIVE DIAGNOSIS: Bilateral hydronephrosis and history of bladder cancer. POSTOPERATIVE DIAGNOSIS: Bilateral hydronephrosis and history of bladder cancer. SURGERY: Cystoscopy, plus bilateral double J stent exchanges 6-[place]e [place] Cook. SURGEON: Frankie Hilario MD COKE OVEN PATCHER: None. ANESTHESIA: Monitored anesthesia care (MAC). FINDINGS: Bilateral double J stents and bilateral hydronephrosis. Scar tissue from prior TURBT. COMPLICATIONS: None. ESTIMATED BLOOD LOSS: Minimal. HISTORY OF PRESENT ILLNESS: 87-year-old male patient that has bilateral hydronephrosis and a history of bladder cancer. The patient and the family are aware of this and have decided only to actually consent for cystoscopy, bilateral double J stent placements and exchanges due to his chronic bilateral hydronephrosis. For this reason, he is here today for a cystoscopy, plus bilateral double J stent exchanges, plus possible TURBT. PROCEDURE DESCRIPTION: In a patient under MAC anesthesia in supine modified low lithotomy position after prepping and draping the area of concern, which included the entire genitalia and abdomen, we introduced a 22-Senegalese cystoscope with a 30-degree lens under videoendoscopic guidance. 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 Bulbar urethra, membranous urethra and prostatic urethra were visualized and opened. 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 We then visualized the bladder. The bladder had old scar tissues from TURBTs and two old double J stents in good position. With endoscopic forceps, we grabbed the right double J stent and pulled it up to the tip of the penis. We passed a guidewire then, up to the kidney and removed the double J stent out. Then, I introduced a double J stent following the guidewire up to the kidney. We then took the guidewire out and the curling of the stent could be seen in the kidney and the bladder. We then introduced the cystoscope once again, and with the endoscopic forceps grabbed the distal end of the left double J stent and pulled it out to the tip of the penis. We cut the end of double J stent and then passed a guidewire up to the left kidney. We then proceeded to remove the old double J stent and passed a new double J stent over the guidewire. Once it was in good position, we took the guidewire out. We could see the curl in the kidney and curl in the bladder. We then, at the end, did a formal cystoscopy 360 degrees [id number] in the bladder with a 30 degree lens and 70 degree lens. There were no bladder tumors. There were old scar tissues. The stents were in good position under fluoroscopy guidance. We then emptied the bladder and took the cystoscope out. PLAN: The patient will go home today with antibiotic, pain medication, followup in 3-4 weeks at [facility] [place], to reschedule a cystoscopy, plus right double J stent, plus possible TURBT in 3 months.
--- NOTE | 2017-10-13 14:40 | REP ---
C-ARM VIEWS OF THE ABDOMEN: Two C-arm views of the abdomen are performed. There are bilateral ureteral stents in place with the proximal ends coiled in the region of the kidneys and the distal ends coiled in the region of the urinary bladder. 23 seconds fluoroscopy time utilized. Signed by Ryan Alcocer MD 10/14/2017 09:15 A
[2017-10-13 15:30] VITALS: BP 130/71
[2017-10-13] MEDS ORDERED: CEPHALEXIN 250 MG CAP PO SCH (21:00)
== END 2017-10-13 15:45 | disposition home or self-care (01) ==
LOC: M SDC 09:23
PROVIDERS: ATTEND Urology
DX: N13.30 Unspecified hydronephrosis (principal); Z85.51 Personal history of malignant neoplasm of bladder; E03.9 Hypothyroidism, unspecified; E27.1 Primary adrenocortical insufficiency; I11.0 Hypertensive heart disease with heart failure; I50.9 Heart failure, unspecified; E11.9 Type 2 diabetes mellitus without complications; D64.9 Anemia, unspecified; N28.9 Disorder of kidney and ureter, unspecified; R31.9 Hematuria, unspecified; M47.816 Spondylosis without myelopathy or radiculopathy, lumbar region; Z79.899 Other long term (current) drug therapy; Z79.82 Long term (current) use of aspirin; Z91.040 Latex allergy status; Z87.891 Personal history of nicotine dependence; Z91.048 Other nonmedicinal substance allergy status
CPT/HCPCS: 52332; 74420; C1769; C2617; J0690; J3010; Q9961

== ENCOUNTER → 2017-10-14 | Outpatient (CLI) | payer MEDICARE, OTHER ==
[~2017-10-14] MED LIST changes: +ECOT81TA5 PO
== END ==
LOC: M LAB 14:13
PROVIDERS: ATTEND Internal Medicine Nephrology
DX: D64.9 Anemia, unspecified (principal)

== ENCOUNTER 2017-10-15 10:38 | Outpatient (CLI) | payer MEDICARE, OTHER ==
[2017-10-15] VITALS (8 sets, daily range): BP systolic 93–148; BP diastolic 50–85
[~2017-10-15] VITALS: Ht 171.4 cm; Wt 79.1 kg
[~2017-10-15 10:38] MED LIST changes: -ECOT81TA5 PO
[2017-10-15] MEDS ORDERED: ECOT81TA5 PO (11:09)
== END 2017-10-15 16:45 | disposition home or self-care (01) ==
LOC: M OPCLIPED 10:38 → M PED 10:45 → M OPCLIPED 16:45
PROVIDERS: ATTEND Internal Medicine Nephrology
DX: D50.0 Iron deficiency anemia secondary to blood loss (chronic) (principal); Z91.040 Latex allergy status; Z91.048 Other nonmedicinal substance allergy status; Z79.82 Long term (current) use of aspirin; Z79.899 Other long term (current) drug therapy
CPT/HCPCS: 36430; P9016

== ENCOUNTER 2017-12-10 18:08 | Inpatient (IN) | payer MEDICARE, OTHER ==
[2017-12-10 19:42] LABS: BASO % 0.5 % (0.0-1.0); EOS # 0.1 10^3/uL (0.0-0.50); EOS % 1.4 % (0.0-3.0); HEMATOCRIT 32.6 % (42.0-52.0); HEMOGLOBIN 10.7 g/dl (14.0-18.0); IMMATURE GRANULOCYTE % 0.6 % (0-3.0); LYMPH # 0.4 10^3/uL (1.5-4.5); LYMPH % 4.4 % (24.0-44.0); MEAN CORPUSCULAR HEMOGLOBIN 30.5 pg (27.0-33.0); MEAN CORPUSCULAR HGB CONC 32.8 g/dl (32.0-36.5); MEAN CORPUSCULAR VOLUME 92.9 fl (80.0-96.0); NEUTROPHILS # 6.9 10^3/uL (1.8-7.7); NEUTROPHILS % 81.1 % (36.0-66.0); PLATELET COUNT, AUTOMATED 238 10^3/uL (150-450); RED BLOOD COUNT 3.51 10^6/uL (4.30-6.10); RED CELL DISTRIBUTION WIDTH 15.6 % (11.5-14.5); WHITE BLOOD COUNT 8.5 10^3/uL (4.0-10.0)
[2017-12-10] MEDS: ACETAMINOPHEN TAB 650MG DOSE (2X325MG) PO (19:56)
[2017-12-10 20:04] LABS: ANION GAP 10 MEQ/L (8-16); BLOOD UREA NITROGEN 107 MG/DL (7-18); CALCIUM LEVEL 9.3 MG/DL (8.8-10.2); CARBON DIOXIDE LEVEL 29 MEQ/L (21-32); CHLORIDE LEVEL 99 MEQ/L (98-107); CREATININE FOR GFR 3.89 MG/DL (0.70-1.30); GLOMERULAR FILTRATION RATE 15.8 (>35); GLUCOSE, FASTING 133 MG/DL (70-100); POTASSIUM SERUM 4.1 MEQ/L (3.5-5.1); SODIUM LEVEL 138 MEQ/L (136-145)
[2017-12-10 20:06] LABS: ERYTHROCYTE SEDIMENTATION RATE 103 mm/hr (0-30)
[2017-12-10] MEDS ORDERED: VANCOMYCIN HCL 500 MG in D5W MINI-BAG PLUS 100 ML IV (21:15)
[2017-12-10] MEDS ORDERED: VANCOMYCIN INTERMITTENT/PULSE DOSING BY CLINICAL PHARMACIST PER DOSING PROTOCOL XX (21:30)
[2017-12-10] MEDS: CEFAZOLIN SOD 1 GM in APPROPRIATE DILUENT 1 EA IV (22:14)
[2017-12-10] MEDS: SODIUM BICARBONATE 325 MG TAB PO (22:15)
[2017-12-10] MEDS: HYDROCORTISONE 5MG TABLET PO (22:15)
[2017-12-10] MEDS: CALCITRIOL 0.25 MCG CAP (S0169) PO ×2 (22:42→23:56)
[2017-12-10] MEDS: VITAMIN D 1,000 INTERNATIONAL UNITS TABLET PO (23:56)
[2017-12-10] MEDS: FERROUS SULFATE 325MG TAB PO (23:56)
[2017-12-10] MEDS: DOCUSATE SODIUM 100 MG CAP PO (23:57)
[2017-12-10] MEDS: HEPARIN SOD (PORCINE) 5000 UNITS/ML VIAL SC (23:57)
[2017-12-10] MEDS: LABETALOL 100 MG TAB PO (23:57)
[2017-12-10] MEDS: VANCOMYCIN HCL 750 MG, VIAL MATE ADAPTER 1 EACH in D5W 250 ML IV (23:58)
[2017-12-11] MEDS: ACETAMINOPHEN TAB 650MG DOSE (2X325MG) PO ×3 (00:01→20:34)
[2017-12-11] MEDS: PIPERACILLIN/TAZOBACTAM SOD 2.25 GM in APPROPRIATE DILUENT 1 EA IV ×2 (01:48→06:29)
[2017-12-11] MEDS: LEVOTHYROXINE 100MCG TABLET (0.1MG) PO (06:29)
[2017-12-11] MEDS: HEPARIN SOD (PORCINE) 5000 UNITS/ML VIAL SC ×3 (06:30→20:24)
[2017-12-11 06:38] LABS: BASO % 0.6 % (0.0-1.0); EOS # 0.2 10^3/uL (0.0-0.50); EOS % 2.6 % (0.0-3.0); HEMATOCRIT 30.1 % (42.0-52.0); HEMOGLOBIN 9.9 g/dl (14.0-18.0); IMMATURE GRANULOCYTE % 0.8 % (0-3.0); LYMPH # 0.5 10^3/uL (1.5-4.5); LYMPH % 6.6 % (24.0-44.0); MEAN CORPUSCULAR HEMOGLOBIN 30.2 pg (27.0-33.0); MEAN CORPUSCULAR HGB CONC 32.9 g/dl (32.0-36.5); MEAN CORPUSCULAR VOLUME 91.8 fl (80.0-96.0); MONO # 0.9 10^3/uL (0.0-0.8); MONO % 12.1 % (0.0-5.0); NEUTROPHILS # 5.6 10^3/uL (1.8-7.7); NEUTROPHILS % 77.3 % (36.0-66.0); PLATELET COUNT, AUTOMATED 225 10^3/uL (150-450); RED BLOOD COUNT 3.28 10^6/uL (4.30-6.10); RED CELL DISTRIBUTION WIDTH 15.2 % (11.5-14.5); WHITE BLOOD COUNT 7.3 10^3/uL (4.0-10.0)
[2017-12-11 06:57] LABS: ANION GAP 12 MEQ/L (8-16); BLOOD UREA NITROGEN 101 MG/DL (7-18); CALCIUM LEVEL 8.9 MG/DL (8.8-10.2); CARBON DIOXIDE LEVEL 27 MEQ/L (21-32); CHLORIDE LEVEL 98 MEQ/L (98-107); CREATININE FOR GFR 3.76 MG/DL (0.70-1.30); GLOMERULAR FILTRATION RATE 16.4 (>35); GLUCOSE, FASTING 95 MG/DL (70-100); POTASSIUM SERUM 3.8 MEQ/L (3.5-5.1); SODIUM LEVEL 137 MEQ/L (136-145)
[2017-12-11] MEDS: CALCIUM ACETATE 667 MG GELCAP PO ×3 (08:00→17:59)
[2017-12-11] MEDS: LABETALOL 100 MG TAB PO ×2 (09:00→20:23)
[2017-12-11] MEDS: MULTIVITAMINS/MINERALS THERAP 1 TAB PO (09:58)
[2017-12-11] MEDS: SODIUM BICARBONATE 325 MG TAB PO ×3 (09:58→20:23)
[2017-12-11] MEDS: HYDROCORTISONE 5MG TABLET PO ×2 (09:59→20:24)
[2017-12-11] MEDS: FUROSEMIDE 40 MG TAB PO (09:59)
[2017-12-11] MEDS: FERROUS SULFATE 325MG TAB PO (10:00)
[2017-12-11] MEDS: DOCUSATE SODIUM 100 MG CAP PO ×2 (10:00→20:20)
[2017-12-11] MEDS: VITAMIN D 1,000 INTERNATIONAL UNITS TABLET PO ×2 (10:01→20:20)
[2017-12-11] MEDS: ASPIRIN 81 MG ENTERIC TAB PO (10:01)
[2017-12-11] MEDS ORDERED: CEFTAROLINE FOSAMIL 300 MG in D5W 50 ML IV (11:00)
[2017-12-11 11:30] LABS: FERRITIN 198 NG/ML (26-388); IRON (FE) 54 UG/DL (65-175); PERCENT SATURATION 33.5 % (19.7-50.0); TOTAL IRON BINDING CAPACITY 161 UG/DL (250-450); VANCOMYCIN RANDOM 9.1 UG/ML
[2017-12-11] MEDS ORDERED: PIPERACILLIN/TAZOBACTAM SOD 2.25 GM in APPROPRIATE DILUENT 1 EA IV (14:00)
[2017-12-11] MEDS: DARBEPOETIN 40 MCG/0.4 ML *NON-DIALYSIS* SYRINGE (J0881) SQ (14:41)
[2017-12-11] MEDS: CALCITRIOL 0.25 MCG CAP (S0169) PO (20:22)
[2017-12-12] MEDS: HEPARIN SOD (PORCINE) 5000 UNITS/ML VIAL SC ×3 (05:24→21:04)
[2017-12-12] MEDS: LEVOTHYROXINE 100MCG TABLET (0.1MG) PO (05:24)
[2017-12-12 05:58] LABS: HEMATOCRIT 30.4 % (42.0-52.0); HEMOGLOBIN 9.8 g/dl (14.0-18.0); MEAN CORPUSCULAR HEMOGLOBIN 29.8 pg (27.0-33.0); MEAN CORPUSCULAR HGB CONC 32.2 g/dl (32.0-36.5); MEAN CORPUSCULAR VOLUME 92.4 fl (80.0-96.0); PLATELET COUNT, AUTOMATED 225 10^3/uL (150-450); RED BLOOD COUNT 3.29 10^6/uL (4.30-6.10); RED CELL DISTRIBUTION WIDTH 15.2 % (11.5-14.5); WHITE BLOOD COUNT 8.1 10^3/uL (4.0-10.0)
[2017-12-12 06:19] LABS: ANION GAP 10 MEQ/L (8-16); BLOOD UREA NITROGEN 102 MG/DL (7-18); C REACTIVE PROTEIN QUANTITATIV 8.27 MG/DL (0.00-0.30); CALCIUM LEVEL 8.8 MG/DL (8.8-10.2); CARBON DIOXIDE LEVEL 29 MEQ/L (21-32); CHLORIDE LEVEL 98 MEQ/L (98-107); CREATININE FOR GFR 3.72 MG/DL (0.70-1.30); GLOMERULAR FILTRATION RATE 16.6 (>35); GLUCOSE, FASTING 107 MG/DL (70-100); MAGNESIUM LEVEL 2.4 MG/DL (1.8-2.4); POTASSIUM SERUM 3.9 MEQ/L (3.5-5.1); SODIUM LEVEL 137 MEQ/L (136-145)
[2017-12-12] MEDS: DOCUSATE SODIUM 100 MG CAP PO ×2 (09:00→21:03)
[2017-12-12] MEDS: CALCIUM ACETATE 667 MG GELCAP PO ×3 (09:28→17:35)
[2017-12-12] MEDS: MULTIVITAMINS/MINERALS THERAP 1 TAB PO (09:28)
[2017-12-12] MEDS: HYDROCORTISONE 5MG TABLET PO ×2 (09:28→21:04)
[2017-12-12] MEDS: VITAMIN D 1,000 INTERNATIONAL UNITS TABLET PO ×2 (09:28→21:03)
[2017-12-12] MEDS: FERROUS SULFATE 325MG TAB PO (09:28)
[2017-12-12] MEDS: ASPIRIN 81 MG ENTERIC TAB PO (09:39)
[2017-12-12] MEDS: FUROSEMIDE 40 MG TAB PO (09:39)
[2017-12-12] MEDS: SODIUM BICARBONATE 325 MG TAB PO ×3 (09:39→21:04)
[2017-12-12] MEDS: LABETALOL 100 MG TAB PO ×2 (09:39→21:03)
[2017-12-12] MEDS: CEFTAROLINE FOSAMIL 300 MG in D5W 50 ML IV ×2 (12:58→22:00)
[2017-12-12] MEDS: PERCOCET 5MG/325MG TAB PO (12:59)
[2017-12-12] MEDS ORDERED: HEPARIN SOD (PORCINE) 5000 UNITS/ML VIAL As Ordered (20:54)
[2017-12-12] MEDS: CALCITRIOL 0.25 MCG CAP (S0169) PO (21:03)
[2017-12-12] MEDS: SANTYL OINT 30GM TOP (21:04)
[2017-12-12] MEDS: ACETAMINOPHEN TAB 650MG DOSE (2X325MG) PO (21:28)
[2017-12-13] MEDS: HEPARIN SOD (PORCINE) 5000 UNITS/ML VIAL SC ×3 (05:44→21:32)
[2017-12-13] MEDS: LEVOTHYROXINE 100MCG TABLET (0.1MG) PO (05:44)
[2017-12-13 06:24] LABS: HEMATOCRIT 30.2 % (42.0-52.0); HEMOGLOBIN 9.9 g/dl (14.0-18.0); MEAN CORPUSCULAR HEMOGLOBIN 29.7 pg (27.0-33.0); MEAN CORPUSCULAR HGB CONC 32.8 g/dl (32.0-36.5); MEAN CORPUSCULAR VOLUME 90.7 fl (80.0-96.0); PLATELET COUNT, AUTOMATED 235 10^3/uL (150-450); RED BLOOD COUNT 3.33 10^6/uL (4.30-6.10); WHITE BLOOD COUNT 7.1 10^3/uL (4.0-10.0)
[2017-12-13 06:46] LABS: ANION GAP 11 MEQ/L (8-16); BLOOD UREA NITROGEN 96 MG/DL (7-18); C REACTIVE PROTEIN QUANTITATIV 8.37 MG/DL (0.00-0.30); CALCIUM LEVEL 9.2 MG/DL (8.8-10.2); CARBON DIOXIDE LEVEL 29 MEQ/L (21-32); CHLORIDE LEVEL 96 MEQ/L (98-107); CREATININE FOR GFR 3.55 MG/DL (0.70-1.30); GLOMERULAR FILTRATION RATE 17.5 (>35); GLUCOSE, FASTING 100 MG/DL (70-100); MAGNESIUM LEVEL 2.6 MG/DL (1.8-2.4); POTASSIUM SERUM 3.8 MEQ/L (3.5-5.1); SODIUM LEVEL 136 MEQ/L (136-145)
[2017-12-13] MEDS: DOCUSATE SODIUM 100 MG CAP PO ×3 (09:00→21:31)
[2017-12-13] MEDS: CALCIUM ACETATE 667 MG GELCAP PO ×3 (09:11→17:51)
[2017-12-13] MEDS: LABETALOL 100 MG TAB PO ×2 (09:12→21:31)
[2017-12-13] MEDS: VITAMIN D 1,000 INTERNATIONAL UNITS TABLET PO ×2 (09:12→21:30)
[2017-12-13] MEDS: ASPIRIN 81 MG ENTERIC TAB PO (09:12)
[2017-12-13] MEDS: MULTIVITAMINS/MINERALS THERAP 1 TAB PO (09:12)
[2017-12-13] MEDS: HYDROCORTISONE 5MG TABLET PO ×2 (09:13→21:30)
[2017-12-13] MEDS: FERROUS SULFATE 325MG TAB PO (09:13)
[2017-12-13] MEDS: PERCOCET 5MG/325MG TAB PO ×3 (09:13→21:32)
[2017-12-13] MEDS: FUROSEMIDE 40 MG TAB PO (09:13)
[2017-12-13] MEDS: SODIUM BICARBONATE 325 MG TAB PO ×3 (09:13→21:31)
[2017-12-13] MEDS: SANTYL OINT 30GM TOP ×2 (09:14→21:33)
[2017-12-13] MEDS: CEFTAROLINE FOSAMIL 300 MG in D5W 50 ML IV (11:28)
[2017-12-13] MEDS: CALCITRIOL 0.25 MCG CAP (S0169) PO (21:30)
[2017-12-13] MEDS: NS IV (22:01)
[2017-12-13] MEDS: CEFTAROLINE FOSAMIL IV (22:01)
[2017-12-14] MEDS: HEPARIN SOD (PORCINE) 5000 UNITS/ML VIAL SC ×3 (06:05→23:35)
[2017-12-14] MEDS: LEVOTHYROXINE 100MCG TABLET (0.1MG) PO (06:05)
[2017-12-14 07:19] LABS: HEMATOCRIT 31.2 % (42.0-52.0); MEAN CORPUSCULAR HEMOGLOBIN 29.5 pg (27.0-33.0); MEAN CORPUSCULAR HGB CONC 32.1 g/dl (32.0-36.5); PLATELET COUNT, AUTOMATED 271 10^3/uL (150-450); RED BLOOD COUNT 3.39 10^6/uL (4.30-6.10); RED CELL DISTRIBUTION WIDTH 15.2 % (11.5-14.5); WHITE BLOOD COUNT 7.9 10^3/uL (4.0-10.0)
[2017-12-14 07:32] LABS: ANION GAP 14 MEQ/L (8-16); BLOOD UREA NITROGEN 98 MG/DL (7-18); C REACTIVE PROTEIN QUANTITATIV 7.66 MG/DL (0.00-0.30); CALCIUM LEVEL 9.5 MG/DL (8.8-10.2); CARBON DIOXIDE LEVEL 27 MEQ/L (21-32); CHLORIDE LEVEL 96 MEQ/L (98-107); CREATININE FOR GFR 3.82 MG/DL (0.70-1.30); GLOMERULAR FILTRATION RATE 16.1 (>35); GLUCOSE, FASTING 108 MG/DL (70-100); MAGNESIUM LEVEL 2.4 MG/DL (1.8-2.4); POTASSIUM SERUM 3.9 MEQ/L (3.5-5.1); SODIUM LEVEL 137 MEQ/L (136-145)
[2017-12-14] MEDS: CALCIUM ACETATE 667 MG GELCAP PO ×3 (08:44→18:00)
[2017-12-14] MEDS: PERCOCET 5MG/325MG TAB PO (08:50)
[2017-12-14] MEDS: MULTIVITAMINS/MINERALS THERAP 1 TAB PO (09:00)
[2017-12-14] MEDS ORDERED: ISOVUE-300 61% 50ML VIAL (Q9967) As Ordered (12:22)
[2017-12-14] MEDS ORDERED: HEPARIN 1,000 UNITS/ML 10ML VIAL (FOR RADIOLOGY& DIALYSIS ONLY) As Ordered (14:10)
[2017-12-14] MEDS ORDERED: MIDAZOLAM INJ 2 MG/2 ML VIAL (J2250) As Ordered (14:14)
[2017-12-14] MEDS ORDERED: fentaNYL 100 MCG/2 ML INJECTION (J3010) As Ordered ×3 (14:14→18:34)
[2017-12-14] MEDS: SODIUM BICARBONATE 325 MG TAB PO ×3 (15:09→23:34)
[2017-12-14] MEDS: LABETALOL 100 MG TAB PO ×2 (15:09→23:32)
[2017-12-14] MEDS: DOCUSATE SODIUM 100 MG CAP PO ×2 (15:09→23:34)
[2017-12-14] MEDS: VITAMIN D 1,000 INTERNATIONAL UNITS TABLET PO ×2 (15:10→23:34)
[2017-12-14] MEDS ORDERED: ALTEPLASE 2 MG/2 ML VIAL (J2997 PER 1MG) As Ordered (15:59)
[2017-12-14] MEDS: NS IV ×2 (17:15→23:35)
[2017-12-14] MEDS: SANTYL OINT 30GM TOP ×2 (17:15→23:57)
[2017-12-14] MEDS: CEFTAROLINE FOSAMIL IV ×2 (17:15→23:35)
[2017-12-14] MEDS: NS 500 ML IV (17:30)
[2017-12-14] MEDS: CONRAY-60 60% 50ML VIAL (Q9961) As Ordered (17:59)
[2017-12-14] MEDS: HEPARIN SOD (PORCINE) 5000 UNITS/ML VIAL As Ordered (17:59)
[2017-12-14] MEDS ORDERED: BUPIVACAINE HCL 0.5% 30 ML VIAL As Ordered (17:59)
[2017-12-14] MEDS: LIDOCAINE 1% SDV INJ 30 ML VIAL As Ordered (17:59)
[2017-12-14] MEDS: THROMBIN SOLN 20,000 UNITS KIT As Ordered (17:59)
[2017-12-14 18:30] LABS: BASO % 0.5 % (0.0-1.0); EOS # 0.3 10^3/uL (0.0-0.50); HEMOGLOBIN 9.1 g/dl (14.0-18.0); IMMATURE GRANULOCYTE % 1.3 % (0-3.0); LYMPH # 0.7 10^3/uL (1.5-4.5); LYMPH % 8.2 % (24.0-44.0); MEAN CORPUSCULAR HEMOGLOBIN 30.5 pg (27.0-33.0); MEAN CORPUSCULAR HGB CONC 32.5 g/dl (32.0-36.5); MONO # 0.9 10^3/uL (0.0-0.8); MONO % 10.7 % (0.0-5.0); NEUTROPHILS # 6.4 10^3/uL (1.8-7.7); NEUTROPHILS % 75.3 % (36.0-66.0); PLATELET COUNT, AUTOMATED 211 10^3/uL (150-450); RED BLOOD COUNT 2.98 10^6/uL (4.30-6.10); RED CELL DISTRIBUTION WIDTH 15.5 % (11.5-14.5); WHITE BLOOD COUNT 8.4 10^3/uL (4.0-10.0)
[2017-12-14] MEDS ORDERED: PHENYLephrine HCL 500 MCG/5 ML (100MCG/ML) SYRINGE (J2370) As Ordered (18:33)
[2017-12-14] MEDS ORDERED: LIDOCAINE 2% INJ 100 MG/5 ML SDV (FOR ANES.) As Ordered (18:33)
[2017-12-14] MEDS ORDERED: PROPOFOL 200 MG/20 ML VIAL As Ordered (18:33)
[2017-12-14] MEDS ORDERED: CALCIUM CHLORIDE 10% 1 GM/10 ML SYR As Ordered (18:33)
[2017-12-14] MEDS ORDERED: ONDANSETRON 4MG/2ML VIAL (J2405) IV (19:30)
[2017-12-14] MEDS: LR 1,000 ML IV (19:30)
[2017-12-14] MEDS ORDERED: fentaNYL 100 MCG/2 ML INJECTION (J3010) IV (19:30)
[2017-12-14] MEDS: NS 1,000 ML IV (20:00)
[2017-12-14] MEDS: HYDROCORTISONE 5MG TABLET PO ×2 (21:00)
[2017-12-14] MEDS: FUROSEMIDE 40 MG TAB PO (21:00)
[2017-12-14] MEDS: ASPIRIN 81 MG ENTERIC TAB PO (21:00)
[2017-12-14 21:03] LABS: IMMEDIATE SPIN CROSSMATCH 1 2
[2017-12-14] MEDS: CALCITRIOL 0.25 MCG CAP (S0169) PO (23:34)
[2017-12-14] MEDS: FERROUS SULFATE 325MG TAB PO (23:35)
[2017-12-14] MEDS: methylPREDNISolone INJ 125 MG/2 ML VIAL (J2930) IV (23:36)
[2017-12-14] MEDS: ACETAMINOPHEN TAB 650MG DOSE (2X325MG) PO (23:59)
[2017-12-15 00:32] LABS: BASO # 0.1 10^3/uL (0.0-0.2); BASO % 0.6 % (0.0-1.0); EOS # 0.4 10^3/uL (0.0-0.50); EOS % 3.3 % (0.0-3.0); HEMATOCRIT 35.8 % (42.0-52.0); IMMATURE GRANULOCYTE % 1.7 % (0-3.0); LYMPH # 0.7 10^3/uL (1.5-4.5); LYMPH % 6.7 % (24.0-44.0); MEAN CORPUSCULAR HEMOGLOBIN 30.9 pg (27.0-33.0); MEAN CORPUSCULAR VOLUME 93.7 fl (80.0-96.0); MONO # 1.1 10^3/uL (0.0-0.8); MONO % 10.4 % (0.0-5.0); NEUTROPHILS # 8.4 10^3/uL (1.8-7.7); NEUTROPHILS % 77.3 % (36.0-66.0); PLATELET COUNT, AUTOMATED 184 10^3/uL (150-450); RED BLOOD COUNT 3.82 10^6/uL (4.30-6.10); WHITE BLOOD COUNT 10.8 10^3/uL (4.0-10.0)
[2017-12-15 00:36] LABS: HEMOGLOBIN 11.8 g/dl (14.0-18.0)
[2017-12-15 05:16] LABS: HEMATOCRIT 31.8 % (42.0-52.0); HEMOGLOBIN 10.5 g/dl (14.0-18.0); MEAN CORPUSCULAR HEMOGLOBIN 30.4 pg (27.0-33.0); MEAN CORPUSCULAR VOLUME 92.2 fl (80.0-96.0); PLATELET COUNT, AUTOMATED 173 10^3/uL (150-450); RED BLOOD COUNT 3.45 10^6/uL (4.30-6.10); RED CELL DISTRIBUTION WIDTH 15.4 % (11.5-14.5); WHITE BLOOD COUNT 11.7 10^3/uL (4.0-10.0)
[2017-12-15 05:31] LABS: ANION GAP 10 MEQ/L (8-16); BLOOD UREA NITROGEN 96 MG/DL (7-18); C REACTIVE PROTEIN QUANTITATIV 9.13 MG/DL (0.00-0.30); CALCIUM LEVEL 8.9 MG/DL (8.8-10.2); CARBON DIOXIDE LEVEL 23 MEQ/L (21-32); CHLORIDE LEVEL 107 MEQ/L (98-107); CREATININE FOR GFR 3.51 MG/DL (0.70-1.30); GLOMERULAR FILTRATION RATE 17.8 (>35); GLUCOSE, FASTING 156 MG/DL (70-100); POTASSIUM SERUM 4.9 MEQ/L (3.5-5.1); SODIUM LEVEL 140 MEQ/L (136-145)
[2017-12-15] MEDS: LEVOTHYROXINE 100MCG TABLET (0.1MG) PO (05:49)
[2017-12-15] MEDS: HEPARIN SOD (PORCINE) 5000 UNITS/ML VIAL SC ×3 (05:49→21:36)
[2017-12-15] MEDS: methylPREDNISolone INJ 125 MG/2 ML VIAL (J2930) IV (05:49)
[2017-12-15] MEDS: CALCIUM ACETATE 667 MG GELCAP PO ×3 (08:00→18:00)
[2017-12-15] MEDS: SODIUM BICARBONATE 325 MG TAB PO ×3 (09:00→20:20)
[2017-12-15] MEDS: MULTIVITAMINS/MINERALS THERAP 1 TAB PO (09:00)
[2017-12-15] MEDS: FUROSEMIDE 40 MG TAB PO (09:00)
[2017-12-15] MEDS: SANTYL OINT 30GM TOP ×2 (09:00→21:00)
[2017-12-15] MEDS: DOCUSATE SODIUM 100 MG CAP PO ×2 (09:00→20:20)
[2017-12-15] MEDS: FERROUS SULFATE 325MG TAB PO (09:00)
[2017-12-15] MEDS: VITAMIN D 1,000 INTERNATIONAL UNITS TABLET PO ×2 (09:00→20:20)
[2017-12-15] MEDS: ASPIRIN 81 MG ENTERIC TAB PO (09:00)
[2017-12-15] MEDS: LABETALOL 100 MG TAB PO ×2 (09:00→20:20)
[2017-12-15] MEDS: ONDANSETRON 4MG/2ML VIAL (J2405) IV (09:38)
[2017-12-15] MEDS: NS IV ×2 (11:49→21:36)
[2017-12-15] MEDS: CEFTAROLINE FOSAMIL IV ×2 (11:49→21:36)
[2017-12-15] MEDS ORDERED: E-Z-PAQUE 96% w/w SUSP 176GM BTL As Ordered ×4 (15:24→15:28)
[2017-12-15] MEDS: CALCITRIOL 0.25 MCG CAP (S0169) PO (20:20)
[2017-12-16 05:27] LABS: HEMOGLOBIN 10.1 g/dl (14.0-18.0); MEAN CORPUSCULAR HEMOGLOBIN 30.8 pg (27.0-33.0); MEAN CORPUSCULAR HGB CONC 33.7 g/dl (32.0-36.5); MEAN CORPUSCULAR VOLUME 91.5 fl (80.0-96.0); PLATELET COUNT, AUTOMATED 196 10^3/uL (150-450); RED BLOOD COUNT 3.28 10^6/uL (4.30-6.10); RED CELL DISTRIBUTION WIDTH 15.7 % (11.5-14.5)
[2017-12-16 05:38] LABS: ANION GAP 13 MEQ/L (8-16); BLOOD UREA NITROGEN 106 MG/DL (7-18); CALCIUM LEVEL 8.8 MG/DL (8.8-10.2); CARBON DIOXIDE LEVEL 21 MEQ/L (21-32); CHLORIDE LEVEL 102 MEQ/L (98-107); CREATININE FOR GFR 3.96 MG/DL (0.70-1.30); GLOMERULAR FILTRATION RATE 15.4 (>35); GLUCOSE, FASTING 197 MG/DL (70-100); MAGNESIUM LEVEL 2.5 MG/DL (1.8-2.4); SODIUM LEVEL 136 MEQ/L (136-145)
[2017-12-16 05:41] LABS: POTASSIUM SERUM 5.2 MEQ/L (3.5-5.1)
[2017-12-16] MEDS: HEPARIN SOD (PORCINE) 5000 UNITS/ML VIAL SC ×3 (06:00→21:39)
[2017-12-16] MEDS: LEVOTHYROXINE 100MCG TABLET (0.1MG) PO (06:00)
[2017-12-16] MEDS: MULTIVITAMINS/MINERALS THERAP 1 TAB PO (08:39)
[2017-12-16] MEDS: CALCIUM ACETATE 667 MG GELCAP PO ×3 (08:39→18:29)
[2017-12-16] MEDS: VITAMIN D 1,000 INTERNATIONAL UNITS TABLET PO ×2 (08:39→21:39)
[2017-12-16] MEDS: DOCUSATE SODIUM 100 MG CAP PO ×2 (08:39→21:39)
[2017-12-16] MEDS: FERROUS SULFATE 325MG TAB PO (08:39)
[2017-12-16] MEDS: SODIUM BICARBONATE 325 MG TAB PO ×3 (08:40→21:44)
[2017-12-16] MEDS: SANTYL OINT 30GM TOP ×2 (08:40→21:38)
[2017-12-16] MEDS: FUROSEMIDE 40 MG TAB PO (09:00)
[2017-12-16] MEDS: ASPIRIN 81 MG ENTERIC TAB PO (10:04)
[2017-12-16] MEDS: NS IV ×2 (10:05→21:39)
[2017-12-16] MEDS: CEFTAROLINE FOSAMIL IV ×2 (10:05→21:39)
[2017-12-16] MEDS: CALCITRIOL 0.25 MCG CAP (S0169) PO (21:39)
[2017-12-17] MEDS: LEVOTHYROXINE 100MCG TABLET (0.1MG) PO (06:18)
[2017-12-17] MEDS: HEPARIN SOD (PORCINE) 5000 UNITS/ML VIAL SC ×3 (06:18→22:54)
[2017-12-17 06:34] LABS: HEMATOCRIT 27.4 % (42.0-52.0); HEMOGLOBIN 9.1 g/dl (14.0-18.0); MEAN CORPUSCULAR HEMOGLOBIN 30.6 pg (27.0-33.0); MEAN CORPUSCULAR HGB CONC 33.2 g/dl (32.0-36.5); MEAN CORPUSCULAR VOLUME 92.3 fl (80.0-96.0); PLATELET COUNT, AUTOMATED 210 10^3/uL (150-450); RED BLOOD COUNT 2.97 10^6/uL (4.30-6.10); RED CELL DISTRIBUTION WIDTH 15.3 % (11.5-14.5); WHITE BLOOD COUNT 17.8 10^3/uL (4.0-10.0)
[2017-12-17 06:55] LABS: ANION GAP 9 MEQ/L (8-16); BLOOD UREA NITROGEN 111 MG/DL (7-18); C REACTIVE PROTEIN QUANTITATIV 7.44 MG/DL (0.00-0.30); CALCIUM LEVEL 8.5 MG/DL (8.8-10.2); CARBON DIOXIDE LEVEL 25 MEQ/L (21-32); CHLORIDE LEVEL 100 MEQ/L (98-107); GLOMERULAR FILTRATION RATE 17.2 (>35); GLUCOSE, FASTING 187 MG/DL (70-100); MAGNESIUM LEVEL 2.4 MG/DL (1.8-2.4); SODIUM LEVEL 134 MEQ/L (136-145)
[2017-12-17 06:59] LABS: POTASSIUM SERUM 5.2 MEQ/L (3.5-5.1)
[2017-12-17] MEDS: CEFTAROLINE FOSAMIL IV (09:51)
[2017-12-17] MEDS: NS IV (09:51)
[2017-12-17] MEDS: SANTYL OINT 30GM TOP ×2 (09:52→20:32)
[2017-12-17] MEDS: ASPIRIN 81 MG ENTERIC TAB PO (09:53)
[2017-12-17] MEDS: MULTIVITAMINS/MINERALS THERAP 1 TAB PO (09:53)
[2017-12-17] MEDS: FUROSEMIDE 40 MG TAB PO (09:53)
[2017-12-17] MEDS: DOCUSATE SODIUM 100 MG CAP PO ×2 (09:53→20:32)
[2017-12-17] MEDS: CALCIUM ACETATE 667 MG GELCAP PO ×3 (09:54→18:42)
[2017-12-17] MEDS: SODIUM BICARBONATE 325 MG TAB PO ×3 (09:54→20:32)
[2017-12-17] MEDS: VITAMIN D 1,000 INTERNATIONAL UNITS TABLET PO ×2 (09:54→20:32)
[2017-12-17] MEDS: FERROUS SULFATE 325MG TAB PO (09:54)
[2017-12-17] MEDS: ONDANSETRON 4MG/2ML VIAL (J2405) IV ×2 (11:58→18:43)
[2017-12-17] MEDS ORDERED: SODIUM CHLORIDE 0.9% INJ 10 ML SYR IV ×2 (16:15→18:00)
[2017-12-17] MEDS: DARBEPOETIN 100 MCG/0.5 ML *NON-DIALYSIS* SYRINGE (J0881) SC (16:17)
[2017-12-17] MEDS: SODIUM CHLORIDE 0.9% INJ 10 ML SYR IV ×2 (18:43→22:54)
[2017-12-17] MEDS: CALCITRIOL 0.25 MCG CAP (S0169) PO (20:44)
[2017-12-18] MEDS: SODIUM CHLORIDE 0.9% INJ 10 ML SYR IV ×3 (05:35→22:15)
[2017-12-18] MEDS: LEVOTHYROXINE 100MCG TABLET (0.1MG) PO (05:35)
[2017-12-18] MEDS: HEPARIN SOD (PORCINE) 5000 UNITS/ML VIAL SC ×3 (05:35→22:15)
[2017-12-18 06:09] LABS: HEMATOCRIT 28.2 % (42.0-52.0); HEMOGLOBIN 9.4 g/dl (14.0-18.0); MEAN CORPUSCULAR HEMOGLOBIN 30.2 pg (27.0-33.0); MEAN CORPUSCULAR HGB CONC 33.3 g/dl (32.0-36.5); MEAN CORPUSCULAR VOLUME 90.7 fl (80.0-96.0); PLATELET COUNT, AUTOMATED 225 10^3/uL (150-450); RED BLOOD COUNT 3.11 10^6/uL (4.30-6.10); WHITE BLOOD COUNT 12.6 10^3/uL (4.0-10.0)
[2017-12-18 06:34] LABS: ANION GAP 11 MEQ/L (8-16); BLOOD UREA NITROGEN 105 MG/DL (7-18); C REACTIVE PROTEIN QUANTITATIV 6.92 MG/DL (0.00-0.30); CALCIUM LEVEL 9.2 MG/DL (8.8-10.2); CARBON DIOXIDE LEVEL 27 MEQ/L (21-32); CHLORIDE LEVEL 99 MEQ/L (98-107); CREATININE FOR GFR 3.49 MG/DL (0.70-1.30); GLOMERULAR FILTRATION RATE 17.9 (>35); GLUCOSE, FASTING 131 MG/DL (70-100); MAGNESIUM LEVEL 2.5 MG/DL (1.8-2.4); POTASSIUM SERUM 4.5 MEQ/L (3.5-5.1); SODIUM LEVEL 137 MEQ/L (136-145)
[2017-12-18] MEDS: ASPIRIN 81 MG ENTERIC TAB PO (09:15)
[2017-12-18] MEDS: CALCIUM ACETATE 667 MG GELCAP PO ×3 (09:15→17:03)
[2017-12-18] MEDS: FUROSEMIDE 40 MG TAB PO (09:16)
[2017-12-18] MEDS: VITAMIN D 1,000 INTERNATIONAL UNITS TABLET PO ×2 (09:16→21:00)
[2017-12-18] MEDS: FERROUS SULFATE 325MG TAB PO (09:17)
[2017-12-18] MEDS: MULTIVITAMINS/MINERALS THERAP 1 TAB PO (09:17)
[2017-12-18] MEDS: DOCUSATE SODIUM 100 MG CAP PO ×2 (09:17→21:00)
[2017-12-18] MEDS: SANTYL OINT 30GM TOP ×2 (09:18→22:16)
[2017-12-18] MEDS: SODIUM BICARBONATE 325 MG TAB PO ×3 (10:26→21:00)
[2017-12-18] MEDS: ONDANSETRON 4MG/2ML VIAL (J2405) IV ×2 (13:08→20:23)
[2017-12-18] MEDS: HYDROCORTISONE 5MG TABLET PO (21:00)
[2017-12-18] MEDS: CALCITRIOL 0.25 MCG CAP (S0169) PO (21:00)
[2017-12-19] MEDS: LEVOTHYROXINE 100MCG TABLET (0.1MG) PO (05:38)
[2017-12-19] MEDS: guaiFENesin SYRUP 200 MG/10 ML UDC PO (05:38)
[2017-12-19] MEDS: HEPARIN SOD (PORCINE) 5000 UNITS/ML VIAL SC ×2 (05:38→14:00)
[2017-12-19] MEDS: SODIUM CHLORIDE 0.9% INJ 10 ML SYR IV ×2 (05:39→17:00)
[2017-12-19 06:20] LABS: HEMATOCRIT 30.2 % (42.0-52.0); MEAN CORPUSCULAR HEMOGLOBIN 30.4 pg (27.0-33.0); MEAN CORPUSCULAR HGB CONC 33.1 g/dl (32.0-36.5); MEAN CORPUSCULAR VOLUME 91.8 fl (80.0-96.0); PLATELET COUNT, AUTOMATED 236 10^3/uL (150-450); RED BLOOD COUNT 3.29 10^6/uL (4.30-6.10); RED CELL DISTRIBUTION WIDTH 15.2 % (11.5-14.5)
[2017-12-19 06:37] LABS: ANION GAP 13 MEQ/L (8-16); BLOOD UREA NITROGEN 102 MG/DL (7-18); CARBON DIOXIDE LEVEL 29 MEQ/L (21-32); CHLORIDE LEVEL 98 MEQ/L (98-107); CREATININE FOR GFR 3.78 MG/DL (0.70-1.30); GLOMERULAR FILTRATION RATE 16.3 (>35); GLUCOSE, FASTING 102 MG/DL (70-100); POTASSIUM SERUM 4.6 MEQ/L (3.5-5.1); SODIUM LEVEL 140 MEQ/L (136-145)
[2017-12-19] MEDS: SANTYL OINT 30GM TOP ×2 (09:00→21:53)
[2017-12-19] MEDS: VITAMIN D 1,000 INTERNATIONAL UNITS TABLET PO (09:28)
[2017-12-19] MEDS: FERROUS SULFATE 325MG TAB PO (09:28)
[2017-12-19] MEDS: HYDROCORTISONE 5MG TABLET PO (09:28)
[2017-12-19] MEDS: MULTIVITAMINS/MINERALS THERAP 1 TAB PO (09:28)
[2017-12-19] MEDS: DOCUSATE SODIUM 100 MG CAP PO (09:28)
[2017-12-19] MEDS: FUROSEMIDE 40 MG TAB PO (09:29)
[2017-12-19] MEDS: SODIUM BICARBONATE 325 MG TAB PO ×2 (09:29→15:12)
[2017-12-19] MEDS: ASPIRIN 81 MG ENTERIC TAB PO (09:29)
[2017-12-19] MEDS: CALCIUM ACETATE 667 MG GELCAP PO ×3 (09:29→15:12)
[2017-12-19] MEDS: D5W/0.9% SODIUM CHLORIDE 1,000 ML IV (15:30)
[2017-12-19] MEDS: CEFTAROLINE FOSAMIL 300 MG in D5W 50 ML IV (17:00)
[2017-12-19] MEDS ORDERED: ACETAMINOPHEN 650 MG SUPP PR (17:00)
[2017-12-19] MEDS ORDERED: HYOSCYAMINE SULFATE 0.125 MG SUBL TABLET PO (17:00)
[2017-12-19] MEDS ORDERED: LORazepam 2 MG/ML VIAL (J2060) IV (17:00)
[2017-12-19] MEDS: HYDROCORTISONE 100 MG/2 ML VIAL (J1720) IV ×2 (17:00→21:52)
[2017-12-19] MEDS ORDERED: MORPHINE 10MG/0.5ML ORAL CONCENTRATE SOLUTION U/D SL (17:00)
[2017-12-20] MEDS: MORPHINE 4 MG/ML 1ML VIAL (J2270) IV (02:32)
[2017-12-20] MEDS: CEFTAROLINE FOSAMIL 300 MG in D5W 50 ML IV ×2 (02:35→14:29)
[2017-12-20] MEDS: SODIUM CHLORIDE 0.9% INJ 10 ML SYR IV ×2 (06:17→18:00)
[2017-12-20] MEDS: LEVOTHYROXINE 100MCG TABLET (0.1MG) PO (06:17)
[2017-12-20] MEDS: HYDROCORTISONE 100 MG/2 ML VIAL (J1720) IV ×3 (06:18→21:34)
[2017-12-20] MEDS: SANTYL OINT 30GM TOP ×2 (09:00→21:30)
[2017-12-21] MEDS: CEFTAROLINE FOSAMIL 300 MG in D5W 50 ML IV ×2 (02:54→14:09)
[2017-12-21] MEDS: SODIUM CHLORIDE 0.9% INJ 10 ML SYR IV ×3 (04:05→15:54)
[2017-12-21] MEDS: HYDROCORTISONE 100 MG/2 ML VIAL (J1720) IV ×3 (06:18→22:19)
[2017-12-21] MEDS: LEVOTHYROXINE 100MCG TABLET (0.1MG) PO (06:18)
[2017-12-21] MEDS: SANTYL OINT 30GM TOP ×2 (09:34→22:19)
[2017-12-22] MEDS: CEFTAROLINE FOSAMIL 300 MG in D5W 50 ML IV ×2 (03:21→14:37)
[2017-12-22] MEDS: LEVOTHYROXINE 100MCG TABLET (0.1MG) PO (05:06)
[2017-12-22] MEDS: SODIUM CHLORIDE 0.9% INJ 10 ML SYR IV ×2 (05:06→16:31)
[2017-12-22] MEDS: HYDROCORTISONE 100 MG/2 ML VIAL (J1720) IV ×3 (05:06→22:31)
[2017-12-22 06:29] LABS: HEMATOCRIT 29.5 % (42.0-52.0); HEMOGLOBIN 9.7 g/dl (14.0-18.0); MEAN CORPUSCULAR HEMOGLOBIN 30.7 pg (27.0-33.0); MEAN CORPUSCULAR HGB CONC 32.9 g/dl (32.0-36.5); MEAN CORPUSCULAR VOLUME 93.4 fl (80.0-96.0); PLATELET COUNT, AUTOMATED 231 10^3/uL (150-450); RED BLOOD COUNT 3.16 10^6/uL (4.30-6.10); WHITE BLOOD COUNT 14.3 10^3/uL (4.0-10.0)
[2017-12-22 06:49] LABS: ALBUMIN 2.4 GM/DL (3.2-5.2); ANION GAP 13 MEQ/L (8-16); BLOOD UREA NITROGEN 122 MG/DL (7-18); CALCIUM LEVEL 8.4 MG/DL (8.8-10.2); CARBON DIOXIDE LEVEL 25 MEQ/L (21-32); CHLORIDE LEVEL 102 MEQ/L (98-107); CREATININE FOR GFR 4.01 MG/DL (0.70-1.30); GLOMERULAR FILTRATION RATE 15.2 (>35); GLUCOSE, FASTING 233 MG/DL (70-100); PHOSPHORUS LEVEL 5.2 MG/DL (2.5-4.9); SODIUM LEVEL 140 MEQ/L (136-145)
[2017-12-22] MEDS: SANTYL OINT 30GM TOP ×2 (09:00→22:32)
[2017-12-23] MEDS: CEFTAROLINE FOSAMIL 300 MG in D5W 50 ML IV ×2 (03:31→15:47)
[2017-12-23] MEDS: LEVOTHYROXINE 100MCG TABLET (0.1MG) PO (05:41)
[2017-12-23] MEDS: HYDROCORTISONE 100 MG/2 ML VIAL (J1720) IV ×2 (05:41→17:21)
[2017-12-23] MEDS: SODIUM CHLORIDE 0.9% INJ 10 ML SYR IV ×2 (05:42→17:21)
[2017-12-23] MEDS: SANTYL OINT 30GM TOP ×2 (08:10→22:09)
[2017-12-23 10:35] LABS: BASO % 0.1 % (0.0-1.0); HEMATOCRIT 31.9 % (42.0-52.0); HEMOGLOBIN 10.4 g/dl (14.0-18.0); IMMATURE GRANULOCYTE % 2.1 % (0-3.0); LYMPH % 2.1 % (24.0-44.0); MEAN CORPUSCULAR HEMOGLOBIN 31.1 pg (27.0-33.0); MEAN CORPUSCULAR HGB CONC 32.6 g/dl (32.0-36.5); MEAN CORPUSCULAR VOLUME 95.5 fl (80.0-96.0); MONO # 0.5 10^3/uL (0.0-0.8); MONO % 4.4 % (0.0-5.0); NEUTROPHILS # 10.7 10^3/uL (1.8-7.7); NEUTROPHILS % 91.3 % (36.0-66.0); PLATELET COUNT, AUTOMATED 205 10^3/uL (150-450); RED BLOOD COUNT 3.34 10^6/uL (4.30-6.10); RED CELL DISTRIBUTION WIDTH 15.8 % (11.5-14.5); WHITE BLOOD COUNT 11.7 10^3/uL (4.0-10.0)
[2017-12-23 10:51] LABS: ANION GAP 14 MEQ/L (8-16); BLOOD UREA NITROGEN 116 MG/DL (7-18); CALCIUM LEVEL 7.7 MG/DL (8.8-10.2); CARBON DIOXIDE LEVEL 25 MEQ/L (21-32); CHLORIDE LEVEL 102 MEQ/L (98-107); CREATININE FOR GFR 3.75 MG/DL (0.70-1.30); GLOMERULAR FILTRATION RATE 16.4 (>35); GLUCOSE, FASTING 353 MG/DL (70-100); POTASSIUM SERUM 3.4 MEQ/L (3.5-5.1); SODIUM LEVEL 141 MEQ/L (136-145)
[2017-12-23 11:14] LABS: LYMPH # 0.2 10^3/uL (1.5-4.5); POSITIVE DIFF POS FLAG
[2017-12-24] MEDS: CEFTAROLINE FOSAMIL 300 MG in D5W 50 ML IV ×2 (03:32→15:37)
[2017-12-24] MEDS: SODIUM CHLORIDE 0.9% INJ 10 ML SYR IV ×3 (05:01→17:03)
[2017-12-24] MEDS: LEVOTHYROXINE 100MCG TABLET (0.1MG) PO (05:46)
[2017-12-24] MEDS: HYDROCORTISONE 100 MG/2 ML VIAL (J1720) IV ×2 (05:46→17:03)
[2017-12-24] MEDS: POTASSIUM CHLORIDE 10% LIQ 20 MEQ/15 ML UDC PO (07:47)
[2017-12-24 08:53] LABS: MAGNESIUM LEVEL 2.6 MG/DL (1.8-2.4)
[2017-12-24] MEDS: SANTYL OINT 30GM TOP ×2 (09:17→20:23)
[2017-12-25] MEDS: CEFTAROLINE FOSAMIL 300 MG in D5W 50 ML IV ×2 (03:08→15:42)
[2017-12-25] MEDS: SODIUM CHLORIDE 0.9% INJ 10 ML SYR IV ×3 (04:35→17:27)
[2017-12-25] MEDS: HYDROCORTISONE 100 MG/2 ML VIAL (J1720) IV ×2 (06:04→17:26)
[2017-12-25] MEDS: LEVOTHYROXINE 100MCG TABLET (0.1MG) PO (06:04)
[2017-12-25] MEDS: SANTYL OINT 30GM TOP ×2 (08:19→21:56)
[2017-12-26] MEDS: CEFTAROLINE FOSAMIL 300 MG in D5W 50 ML IV ×2 (02:51→15:38)
[2017-12-26] MEDS: SODIUM CHLORIDE 0.9% INJ 10 ML SYR IV ×2 (04:33→17:10)
[2017-12-26] MEDS: LEVOTHYROXINE 100MCG TABLET (0.1MG) PO (05:31)
[2017-12-26] MEDS: HYDROCORTISONE 10 MG TAB PO ×2 (09:00→20:11)
[2017-12-26] MEDS: SANTYL OINT 30GM TOP ×2 (10:44→20:12)
[2017-12-26] MEDS: NYSTATIN 500,000 U/5 ML SUSP UDC SS ×2 (11:27→17:10)
[2017-12-26] MEDS: ACETAMINOPHEN TAB 650MG DOSE (2X325MG) PO (15:38)
[2017-12-27] MEDS: NYSTATIN 500,000 U/5 ML SUSP UDC SS ×4 (00:19→17:15)
[2017-12-27] MEDS: CEFTAROLINE FOSAMIL 300 MG in D5W 50 ML IV ×2 (03:07→15:21)
[2017-12-27] MEDS: SODIUM CHLORIDE 0.9% INJ 10 ML SYR IV ×2 (06:01→16:48)
[2017-12-27] MEDS: LEVOTHYROXINE 100MCG TABLET (0.1MG) PO (06:01)
[2017-12-27] MEDS: HYDROCORTISONE 10 MG TAB PO ×2 (09:29→22:07)
[2017-12-27] MEDS: SANTYL OINT 30GM TOP ×2 (09:29→22:08)
[2017-12-27] MEDS: ACETAMINOPHEN TAB 650MG DOSE (2X325MG) PO (22:17)
[2017-12-28] MEDS: NYSTATIN 500,000 U/5 ML SUSP UDC SS ×2 (00:48→06:10)
[2017-12-28] MEDS: CEFTAROLINE FOSAMIL 300 MG in D5W 50 ML IV ×2 (03:12→15:22)
[2017-12-28] MEDS: LEVOTHYROXINE 100MCG TABLET (0.1MG) PO (06:10)
[2017-12-28] MEDS: SODIUM CHLORIDE 0.9% INJ 10 ML SYR IV ×2 (06:10→17:49)
[2017-12-28] MEDS: HYDROCORTISONE 10 MG TAB PO ×2 (09:04→23:25)
[2017-12-28] MEDS: SANTYL OINT 30GM TOP ×2 (09:04→23:40)
[2017-12-28] MEDS ORDERED: ACETAMINOPHEN TAB 650MG DOSE (2X325MG) PO (09:15)
[2017-12-28] MEDS ORDERED: diphenhydrAMINE 25 MG CAP PO (09:15)
[2017-12-28] MEDS: ACETAMINOPHEN TAB 650MG DOSE (2X325MG) PO (23:24)
[2017-12-28] MEDS: diphenhydrAMINE 25 MG CAP PO (23:25)
[2017-12-29] MEDS: CEFTAROLINE FOSAMIL 300 MG in D5W 50 ML IV ×2 (03:57→15:51)
[2017-12-29] MEDS: SODIUM CHLORIDE 0.9% INJ 10 ML SYR IV ×2 (05:19→17:15)
[2017-12-29] MEDS: LEVOTHYROXINE 100MCG TABLET (0.1MG) PO (05:19)
[2017-12-29] MEDS: HYDROCORTISONE 10 MG TAB PO ×2 (09:12→20:59)
[2017-12-29] MEDS: SANTYL OINT 30GM TOP ×2 (09:15→21:00)
[2017-12-29] MEDS: ACETAMINOPHEN TAB 650MG DOSE (2X325MG) PO (20:51)
[2017-12-30] MEDS: CEFTAROLINE FOSAMIL 300 MG in D5W 50 ML IV ×2 (03:14→15:12)
[2017-12-30] MEDS: MORPHINE 4 MG/ML 1ML VIAL (J2270) IV (06:22)
[2017-12-30] MEDS: SODIUM CHLORIDE 0.9% INJ 10 ML SYR IV ×2 (06:23→16:22)
[2017-12-30] MEDS: LEVOTHYROXINE 100MCG TABLET (0.1MG) PO (06:23)
[2017-12-30] MEDS: HYDROCORTISONE 10 MG TAB PO ×2 (08:34→20:03)
[2017-12-30] MEDS: SANTYL OINT 30GM TOP ×2 (08:35→20:03)
[2017-12-31] MEDS: ACETAMINOPHEN TAB 650MG DOSE (2X325MG) PO ×2 (00:09→21:59)
[2017-12-31] MEDS: CEFTAROLINE FOSAMIL 300 MG in D5W 50 ML IV ×2 (02:59→17:13)
[2017-12-31] MEDS: LEVOTHYROXINE 100MCG TABLET (0.1MG) PO (05:44)
[2017-12-31] MEDS: SODIUM CHLORIDE 0.9% INJ 10 ML SYR IV ×2 (05:45→21:57)
[2017-12-31] MEDS: SANTYL OINT 30GM TOP ×2 (08:15→21:58)
[2017-12-31] MEDS: HYDROCORTISONE 10 MG TAB PO ×2 (08:15→21:57)
[2018-01-01] MEDS: CEFTAROLINE FOSAMIL 300 MG in D5W 50 ML IV ×2 (03:03→15:26)
[2018-01-01] MEDS: LEVOTHYROXINE 100MCG TABLET (0.1MG) PO (05:35)
[2018-01-01] MEDS: SODIUM CHLORIDE 0.9% INJ 10 ML SYR IV ×2 (05:35→16:36)
[2018-01-01] MEDS: SANTYL OINT 30GM TOP ×2 (09:00→22:13)
[2018-01-01] MEDS: HYDROCORTISONE 10 MG TAB PO ×2 (11:40→22:12)
[2018-01-02] MEDS: CEFTAROLINE FOSAMIL 300 MG in D5W 50 ML IV ×2 (02:49→15:35)
[2018-01-02] MEDS: LEVOTHYROXINE 100MCG TABLET (0.1MG) PO (05:44)
[2018-01-02] MEDS: SODIUM CHLORIDE 0.9% INJ 10 ML SYR IV ×2 (05:45→15:35)
[2018-01-02] MEDS: HYDROCORTISONE 10 MG TAB PO ×2 (09:40→22:01)
[2018-01-02] MEDS: SANTYL OINT 30GM TOP ×2 (09:40→22:10)
[2018-01-02] MEDS: MORPHINE 4 MG/ML 1ML VIAL (J2270) IV ×3 (10:38→22:09)
[2018-01-02] MEDS: ONDANSETRON 4MG/2ML VIAL (J2405) IV (10:38)
[2018-01-03] MEDS: CEFTAROLINE FOSAMIL 300 MG in D5W 50 ML IV ×2 (03:44→14:39)
[2018-01-03] MEDS: SODIUM CHLORIDE 0.9% INJ 10 ML SYR IV ×2 (05:03→18:00)
[2018-01-03] MEDS: LEVOTHYROXINE 100MCG TABLET (0.1MG) PO (06:05)
[2018-01-03] MEDS: MORPHINE 4 MG/ML 1ML VIAL (J2270) IV ×4 (06:06→14:41)
[2018-01-03] MEDS: HYDROCORTISONE 10 MG TAB PO ×2 (08:31→21:00)
[2018-01-03] MEDS: SANTYL OINT 30GM TOP ×2 (11:00→21:00)
[2018-01-03] MEDS: MORPHINE SULF IN 0.9% NACL 100 MG in APPROPRIATE DILUENT 1 EA IV (18:14)
== END 2018-01-04 00:09 | disposition expired | DRG 982 ==
LOC: M PCU 12-14 18:07 → M MSPAV 12-16 20:43 → M ED 18:08 → M ICU 12-14 19:54 → M ED INP 21:01 → M MS5PR 23:10
PROC: 04QL0ZZ Repair Left Femoral Artery, Open Approach (ICD-10-PCS; principal; 2017-12-14 17:54)
PROC: 04CL0ZZ Extirpation of Matter from Left Femoral Artery, Open Approach (ICD-10-PCS; 2017-12-14 17:54)
PROC: 02HV33Z Insertion of Infusion Device into Superior Vena Cava, Percutaneous Approach (ICD-10-PCS; 2017-12-14 18:13)
PROC: 30233N1 Transfusion of Nonautologous Red Blood Cells into Peripheral Vein, Percutaneous Approach (ICD-10-PCS; 2017-12-14 18:13)
DX: M86.171 Other acute osteomyelitis, right ankle and foot (principal); L03.115 Cellulitis of right lower limb; N18.4 Chronic kidney disease, stage 4 (severe); I50.32 Chronic diastolic (congestive) heart failure; E87.2 Acidosis; N25.81 Secondary hyperparathyroidism of renal origin; I97.638 Postprocedural hematoma of a circulatory system organ or structure following other circulatory system procedure; E27.1 Primary adrenocortical insufficiency; E87.1 Hypo-osmolality and hyponatremia; I13.0 Hypertensive heart and chronic kidney disease with heart failure and stage 1 through stage 4 chronic kidney disease, or unspecified chronic kidney disease; Z66 Do not resuscitate; Z51.5 Encounter for palliative care; L97.519 Non-pressure chronic ulcer of other part of right foot with unspecified severity; I95.81 Postprocedural hypotension; E87.5 Hyperkalemia; B95.61 Methicillin susceptible Staphylococcus aureus infection as the cause of diseases classified elsewhere; I73.9 Peripheral vascular disease, unspecified; D63.1 Anemia in chronic kidney disease; Z90.49 Acquired absence of other specified parts of digestive tract; Z96.0 Presence of urogenital implants; Z91.040 Latex allergy status; Z91.048 Other nonmedicinal substance allergy status; Z85.51 Personal history of malignant neoplasm of bladder; Z87.891 Personal history of nicotine dependence; Z79.899 Other long term (current) drug therapy